=== PATIENT | female | born 1955 | race Caucasian/White ===

== ENCOUNTER 2016-03-18 17:03 | Inpatient (IN) | payer OTHER ==
[~2016-03-18] VITALS: Ht 152.4 cm; Wt 48.5 kg
[~2016-03-18 17:03] MED LIST: ACET325T9 PO; IBUP200C9 PO; ONDA4TAB10 SL; OXYC1TAB7 PO; SENN1TAB21 PO
[2016-03-18] MEDS ORDERED: IV NORMAL SALINE 1000ML BAG 1,000 ML IV ONE ×2 (18:30→19:45)
[2016-03-18] MEDS ORDERED: PROMETH/CODEINE 6.25/10MG 5 ML SYRUP. PO ONE (18:30)
[2016-03-18 18:39] LABS: BASO % 2 % (0-3); EOS % 0 % (0-3); HEMATOCRIT 35.8 % (36.0-47.0); HEMOGLOBIN 12.3 g/dL (12.0-15.5); LYMPH # 0.3 x10^3/uL (1.0-4.8); LYMPH % 34 % (24-48); MEAN CORPUSCULAR HEMOGLOBIN 30 pg (25-35); MEAN CORPUSCULAR HGB CONC 35 g/dL (31-37); MEAN CORPUSCULAR VOLUME 87 fL (79-100); MONO % 10 % (0-9); NEUT % 54 % (31-73); PLATELET COUNT 184 x10^3/uL (140-400); RED BLOOD COUNT 4.13 x10^6/uL (3.50-5.40); RED CELL DISTRIBUTION WIDTH 13.1 % (11.5-14.5)
[2016-03-18 18:46] LABS: WHITE BLOOD COUNT 0.9 x10^3/uL (4.0-11.0)
[2016-03-18 18:56] LABS: CALCIUM 8.5 mg/dL (8.5-10.1); CREATININE 0.6 mg/dL (0.6-1.0); GFR 101.3; POTASSIUM 3.7 mmol/L (3.5-5.1)
[2016-03-18 19:28] LABS: OBC FLU VALID
--- NOTE | 2016-03-18 19:36 | PHYS DOC ---
Past Medical History Past Medical History: Cancer Additional Past Medical Histor: BREAST CA Past Surgical History: Tonsillectomy Additional Past Surgical Histo: LEFT MASTECTOMY Alcohol Use: None Drug Use: None Adult General Chief Complaint Chief Complaint: GENERALIZED BODY ACHES HPI HPI 61-year-old female who is had generalized body aches and weakness with a cough for the last 1-2 day. Pt states she received chemotherapy for known Breast CA. She denies any chest pain or SOB. She states subjective fever and chills. She denies any nausea or vomiting. Review of Systems Review of Systems Constitutional: Has fever, has chills [] Eyes: Denies change in visual acuity, redness, or eye pain [] HENT: Denies nasal congestion or sore throat [] Respiratory: Has cough, denies shortness of breath [] Cardiovascular: No additional information not addressed in HPI [] GI: Denies abdominal pain, nausea, vomiting, bloody stools or diarrhea [] : Denies dysuria or hematuria [] Musculoskeletal: Denies back pain or joint pain [] Integument: Denies rash or skin lesions [] Neurologic: Denies headache, focal weakness or sensory changes [] Endocrine: Denies polyuria or polydipsia [] Current Medications Current Medications Current Medications Medications (Trade) Dose Ordered Sig/Karon Start Time Stop Time Status Last Admin Dose Admin Promethazine HCl/ Codeine 5 ml 5 ml 1X ONCE 03/18/16 18:30 03/18/16 18:31 DC 03/18/16 18:47 5 ML Sodium Chloride (Iv Sodium Chloride 0.9% 1000ml Bag) 1,000 ml @ 1,000 mls/hr 1X ONCE 03/18/16 18:30 03/18/16 19:29 DC 03/18/16 18:47 1,000 MLS/HR Allergies Allergies Allergies Coded Allergies Type Severity Reaction Last Updated Verified No Known Drug Allergies 01/15/16 No Physical Exam Physical Exam Constitutional: Well developed, well nourished, no acute distress, non-toxic appearance. [] HENT: Normocephalic, atraumatic, bilateral external ears normal, oropharynx moist, no oral exudates, nose normal. [] Eyes: PERRLA, EOMI, conjunctiva normal, no discharge. [] Neck: Normal range of motion, no tenderness, supple, no stridor. [] Cardiovascular:Heart rate regular rhythm, no murmur [] Lungs & Thorax: Bilateral breath sounds clear to auscultation [] Abdomen: Bowel sounds normal, soft, no tenderness, no masses, no pulsatile masses. [] Skin: Warm, dry, no erythema, no rash. [] Back: No tenderness, no CVA tenderness. [] Extremities: No tenderness, no cyanosis, no clubbing, ROM intact, no edema. [] Neurologic: Alert and oriented X 3, normal motor function, normal sensory function, no focal deficits noted. [] Psychologic: Affect normal, judgement normal, mood normal. [] Current Patient Data Vital Signs Vital Signs Date Time Temp Pulse Resp B/P Pulse Ox O2 Delivery O2 Flow Rate FiO2 03/18/16 18:51 92 16 129/76 97 Room Air 03/18/16 17:41 98.7 98.7 Lab Values Laboratory Tests Test 03/18/16 18:25 White Blood Count 0.9x10^3/uL (4.0-11.0) *L Red Blood Count 4.13x10^6/uL (3.50-5.40) Hemoglobin 12.3g/dL (12.0-15.5) Hematocrit 35.8% (36.0-47.0) L Mean Corpuscular Volume 87fL (79-100) Mean Corpuscular Hemoglobin 30pg (25-35) Mean Corpuscular Hemoglobin Concent 35g/dL (31-37) Red Cell Distribution Width 13.1% (11.5-14.5) Platelet Count 184x10^3/uL (140-400) Neutrophils (%) (Auto) 54% (31-73) Lymphocytes (%) (Auto) 34% (24-48) Monocytes (%) (Auto) 10% (0-9) H Eosinophils (%) (Auto) 0% (0-3) Basophils (%) (Auto) 2% (0-3) Neutrophils # (Auto) 0.5x10^3uL (1.8-7.7) L Lymphocytes # (Auto) 0.3x10^3/uL (1.0-4.8) L Monocytes # (Auto) 0.1x10^3/uL (0.0-1.1) Eosinophils # (Auto) 0.0x10^3/uL (0.0-0.7) Basophils # (Auto) 0.0x10^3/uL (0.0-0.2) Segmented Neutrophils % 50% (35-66) Lymphocytes % 36% (24-48) Monocytes % 14% (0-10) H Platelet Estimate Adequate (ADEQUATE) Large Platelets Occ Giant Platelets Occ Polychromasia Slight Ovalocytes Occ Sodium Level 139mmol/L (136-145) Potassium Level 3.7mmol/L (3.5-5.1) Chloride Level 102mmol/L (98-107) Carbon Dioxide Level 30mmol/L (21-32) Anion Gap 7 (6-14) Blood Urea Nitrogen 16mg/dL (7-20) Creatinine 0.6mg/dL (0.6-1.0) Estimated GFR (Cockcroft-Gault) 101.3 Glucose Level 99mg/dL (70-99) Calcium Level 8.5mg/dL (8.5-10.1) Troponin I Quantitative < 0.017ng/mL (0.000-0.055) Influenza Type A Antigen Positive (NEGATIVE) Influenza Type B Antigen Negative (NEGATIVE) Laboratory Tests 03/18/16 18:25 Laboratory Tests 03/18/16 18:25 EKG EKG EKG as interpreted by me shows a sinus rhythm with a rate of 87 bpm with a leftward axis. There are no acute ST findings. Intervals are normal. Radiology/Procedures Radiology/Procedures Portable one view of the chest as interpreted by me shows no acute cardiopulmonary abnormality. Chemo-Port appears appropriate. Course & Med Decision Making Course & Med Decision Making Pertinent Labs and Imaging studies reviewed. (See chart for details) 61-year-old female who is influenza positive will be admitted to the hospital as she is on chemotherapy and immunocompromised. She has a white count of 0.9 patient was given fluids and the first dose of Tamiflu in the department. Her case was discussed with the hospitalist, Dr. Strange, who agreed to admit the patient with consult to oncology as well as infectious disease. Her EKG and chest xray did not demonstrate any other acute abnormality. She was admitted without incident. Dragon Disclaimer Dragon Disclaimer This electronic medical record was generated, in whole or in part, using a voice recognition dictation system. Departure Departure Impression: Primary Impression: Influenza A Additional Impression: Weakness Disposition: 09 ADMITTED INPATIENT Admitting Physician: Elli Strange Condition: STABLE Referrals: ELLI STRANGE MD (PCP) Problem Qualifiers SHIRIN HOWE DO Mar 18, 2016 19:36
[2016-03-18] MEDS ORDERED: ONDANSETRON PF 4 MG/2 ML VIAL. IV PRN (19:45)
[2016-03-18] MEDS ORDERED: IPRATRPIUM/ALBUTEROL 0.5/2.5MG 3 ML NEBU. NEB SCH (20:00)
[2016-03-18 20:15] LABS: OVALOCYTES OCC; PLT ESTIMATE ADEQUATE (ADEQUATE); POLYCHROMASIA SLIGHT
[2016-03-18] MEDS: OSELTAMIVIR 75 MG CAPSULE PO SCH (21:27)
[2016-03-18 22:00] VITALS: BP 128/79
[2016-03-18 23:00] VITALS: BP 128/79
[2016-03-19 02:54] VITALS: BP 112/65
[2016-03-19] MEDS: ACETAMINOPHEN 325 MG TABLET. PO PRN ×2 (03:04→10:27)
--- NOTE | 2016-03-19 06:39 | EKG ---
[facility] [address] [place] [address] Test Date: 2016-03-18 Test Time: 18:36:52 Pat Name: ESTEBAN GIPSON Department: Room: [facility] Gender: F Motion Picture Commentator: : 1955 Requested By: SHIRIN HOWE Order Number: [id number] Reading MD: Lala Hernández Measurements Intervals [place] Rate: 87 P: 38 OR: 136 QRS: -45 QRSD: 94 T: 42 QT: 386 QTc: 465 Interpretive Statements SINUS RHYTHM LEFT ANTERIOR FASCICULAR BLOCK CONSIDER LEFT VENTRICULAR HYPERTROPHY ABNORMAL ECG Electronically Signed On 03-20-2016 0:41:03 MEMBER SERVICES COORDINATOR by Lala Hernández
--- NOTE | 2016-03-19 06:54 | PDOC ---
GEOFF HUIZAR APRN 03/19/16 0654: Provider Note Provider Note Onset coughing non productive dry, weakness, diarrhea, and body aches 2 day prior to ED evaluation. Presented to ED by private car. Neutropenia present with ANC <1000. She has a history of breast cancer and is currently receiving chemotherapy. EKG SR. CXR clear. Influenzae A +. She is admitted for Influenzae A. Initial IMPRESSION: 1. Influenzae A 2. Neutropenia with ANC <1000 3. L breast cancer with h/o chemotherapy PLAN: Influenzae A Tamiflu initiated supportive care codeine based cough syrup nebulizer QID Tm 102.6 during night, 03/19 100.0 IV NS 75cc/hr airborne/contact precautions Neutropenia Admit WBC 0.9 neutropenic precautions Breast cancer/L mastectomy/chemo consult Dr. Mcfarland DVT/GI prophylaxis SCD/JOSÉ MIGUEL BOOTH to chair PPI For further plan of care, please refer to the orders. See completed HP ELLI STRANGE MD 03/19/16 1048: Provider Note Provider Note D/w patient,family, and . IV Cefepime,Tamiflu. The patient was seen and examined by me. Chart reviewed and plan of care formulated. Discussed with, reviewed and agree with IT ADMIN's notes, plan of care and orders with modifications as necessary. For more details regarding further plans, please refer to the orders. GEOFF HUIZAR APRN Mar 19, 2016 06:54 ELLI STRANGE MD Mar 19, 2016 10:48
[2016-03-19 07:00] VITALS: BP 112/62
[2016-03-19] MEDS ORDERED: ONDANSETRON PF 4 MG/2 ML VIAL. IV PRN (07:00)
[2016-03-19] MEDS ORDERED: PROMETH/CODEINE 6.25/10MG 5 ML SYRUP. PO PRN (07:00)
[2016-03-19 07:14] LABS: BASO % 3 % (0-3); EOS % 0 % (0-3); HEMATOCRIT 33.9 % (36.0-47.0); HEMOGLOBIN 11.6 g/dL (12.0-15.5); LYMPH # 0.4 x10^3/uL (1.0-4.8); LYMPH % 51 % (24-48); MEAN CORPUSCULAR HEMOGLOBIN 31 pg (25-35); MEAN CORPUSCULAR HGB CONC 34 g/dL (31-37); MEAN CORPUSCULAR VOLUME 90 fL (79-100); MONO % 17 % (0-9); NEUT % 29 % (31-73); PLATELET COUNT 155 x10^3/uL (140-400); RED BLOOD COUNT 3.78 x10^6/uL (3.50-5.40); RED CELL DISTRIBUTION WIDTH 13.4 % (11.5-14.5)
[2016-03-19 07:20] LABS: WHITE BLOOD COUNT 0.8 x10^3/uL (4.0-11.0)
[2016-03-19 07:24] LABS: CALCIUM 7.8 mg/dL (8.5-10.1); CREATININE 0.5 mg/dL (0.6-1.0); POTASSIUM 3.8 mmol/L (3.5-5.1)
[2016-03-19] MEDS: IPRATRPIUM/ALBUTEROL 0.5/2.5MG 3 ML NEBU. NEB SCH ×5 (07:26→19:13)
--- NOTE | 2016-03-19 08:05 | RAD ---
Portable AP upright view CXR: Clinical indications: Cough with cold symptoms. Chemotherapy for 2 months. Comparison: January 15, 2016. Findings: No acute lung infiltrate or pleural effusion or pulmonary edema or lung mass or pneumothorax is seen. The heart size, pulmonary vasculature, mediastinum and both michael are unremarkable. The right IJ Port-A-Cath is unchanged in position. Left mastectomy and axillary node dissection is evident. Impression: No acute radiographic abnormality is seen.
--- NOTE | 2016-03-19 09:07 | PDOC ---
Infectious Disease Note ROS ROS GEN: Denies fevers, chills, sweats HEENT: Denies blurred vision, sore throat CV: Denies chest pain RESP: Denies shortness of air, cough GI: Denies n/v/d NEURO: Denies confusion, dizziness MSK: Denies weakness, joint pain/swelling Vital Sign Vital Signs Vital Signs Date Time Temp Pulse Resp B/P Pulse Ox O2 Delivery O2 Flow Rate FiO2 03/19/16 07:00 98.4 81 16 112/62 95 Room Air 98.4 Physical Exam PHYSICAL EXAM GENERAL: NAD, Alert HEENT: PERRL, OC/OP NECK: Supple, no JVD, no LN LUNGS: Clear HEART: S1S2, no gallop, no murmur ABD: Soft, NT, no organomegaly, no rebound EXT: No edema, no cyanosis DYNAMO REPAIRER: Alert, oriented x 3, no focal neurologic deficit SKIN: No rash IV: ok Labs Lab Laboratory Tests Test 03/18/16 18:25 03/19/16 06:45 White Blood Count 0.9x10^3/uL (4.0-11.0) 0.8x10^3/uL (4.0-11.0) Red Blood Count 4.13x10^6/uL (3.50-5.40) 3.78x10^6/uL (3.50-5.40) Hemoglobin 12.3g/dL (12.0-15.5) 11.6g/dL (12.0-15.5) Hematocrit 35.8% (36.0-47.0) 33.9% (36.0-47.0) Mean Corpuscular Volume 87fL (79-100) 90fL (79-100) Mean Corpuscular Hemoglobin 30pg (25-35) 31pg (25-35) Mean Corpuscular Hemoglobin Concent 35g/dL (31-37) 34g/dL (31-37) Red Cell Distribution Width 13.1% (11.5-14.5) 13.4% (11.5-14.5) Platelet Count 184x10^3/uL (140-400) 155x10^3/uL (140-400) Neutrophils (%) (Auto) 54% (31-73) 29% (31-73) Lymphocytes (%) (Auto) 34% (24-48) 51% (24-48) Monocytes (%) (Auto) 10% (0-9) 17% (0-9) Eosinophils (%) (Auto) 0% (0-3) 0% (0-3) Basophils (%) (Auto) 2% (0-3) 3% (0-3) Neutrophils # (Auto) 0.5x10^3uL (1.8-7.7) 0.2x10^3uL (1.8-7.7) Lymphocytes # (Auto) 0.3x10^3/uL (1.0-4.8) 0.4x10^3/uL (1.0-4.8) Monocytes # (Auto) 0.1x10^3/uL (0.0-1.1) 0.1x10^3/uL (0.0-1.1) Eosinophils # (Auto) 0.0x10^3/uL (0.0-0.7) 0.0x10^3/uL (0.0-0.7) Basophils # (Auto) 0.0x10^3/uL (0.0-0.2) 0.0x10^3/uL (0.0-0.2) Segmented Neutrophils % 50% (35-66) Lymphocytes % 36% (24-48) Monocytes % 14% (0-10) Platelet Estimate Adequate (ADEQUATE) Large Platelets Occ Giant Platelets Occ Polychromasia Slight Ovalocytes Occ Sodium Level 139mmol/L (136-145) 141mmol/L (136-145) Potassium Level 3.7mmol/L (3.5-5.1) 3.8mmol/L (3.5-5.1) Chloride Level 102mmol/L (98-107) 107mmol/L (98-107) Carbon Dioxide Level 30mmol/L (21-32) 24mmol/L (21-32) Anion Gap 7 (6-14) 10 (6-14) Blood Urea Nitrogen 16mg/dL (7-20) 9mg/dL (7-20) Creatinine 0.6mg/dL (0.6-1.0) 0.5mg/dL (0.6-1.0) Estimated GFR (Cockcroft-Gault) 101.3 125.0 Glucose Level 99mg/dL (70-99) 87mg/dL (70-99) Calcium Level 8.5mg/dL (8.5-10.1) 7.8mg/dL (8.5-10.1) Troponin I Quantitative < 0.017ng/mL (0.000-0.055) Influenza Type A Antigen Positive (NEGATIVE) Influenza Type B Antigen Negative (NEGATIVE) Objective Assessment Influenza A 03/18. Did get vaccinated this year Fever Immunosuppression Breast CA s/p Chemo 03/12 and neulasta 03/13 Port a cath right chest - appears clean Plan Plan of Care Cont Tamiflu Add Cefepime - d/w pharmacy F/u labs and cults Thank you # [phone] LUIS ALFREDO ORTEGA MD Mar 19, 2016 09:07
[2016-03-19] MEDS: OSELTAMIVIR 75 MG CAPSULE PO SCH ×2 (10:14→20:37)
[2016-03-19] MEDS: PANTOPRAZOLE 40 MG TABLET. PO SCH (10:14)
[2016-03-19] MEDS: CEFEPIME HCL 1 GM in IV NORMAL SALINE 50ML 50 ML IV SCH ×3 (10:15→22:07)
[2016-03-19] MEDS: IV NORMAL SALINE 1000ML BAG 1,000 ML IV SCH ×2 (10:16→20:38)
[2016-03-19 10:54] VITALS: BP 113/66
--- NOTE | 2016-03-19 13:24 | PDOC1 ---
HISTORY AND PHYSICAL Chief Complaint Chief Complaint This 89 year old female has been admitted with a chief complaint of coughing non productive dry, weakness, diarrhea, and body aches 2 day prior to ED evaluation. Presented to ED by private car. Neutropenia present with ANC < 1000. She has a history of breast cancer and is currently receiving chemotherapy. EKG SR. CXR clear. Influenzae A +. She is admitted for Influenzae A. Initial IMPRESSION: 1. Influenzae A 2. Neutropenia with ANC <1000 3. L breast cancer with h/o chemotherapy Problem List Problems Medical Problems: (1) Influenza A Status: Acute (2) Weakness Status: Acute Past Medical History Cardiovascular: Hyperlipidemia Heme/Onc: Cancer (invasive hi grade ductal L breast Ca stage III post mastectomy/current chemotherapy) Musculoskeletal: Other (carpal tunnel syndrome ) Past Surgical History Past Surgical History: Mastectomy (left mastectomy ) Past Family History Family History: Cancer (breast Mom ), Coronary Artery Disease (Dad), Diabetes ( Mom), Other (arthritis Mom ) Past Social History PSH , former smoker, no h/o ETOH or illicit drug use Review of Symptoms Review of Symptoms A 14 point ROS was completed with the following noted as positive: per HPI Other systems reviewed and negative. Medications Medications reviewed and reconciled Allergy Allergies Coded Allergies Type Severity Reaction Last Updated Verified No Known Drug Allergies 01/15/16 No Physical Exam Physical Exam General appearance - alert,ill appearing, and in no distress Mental Status - alert, oriented to person, place, and time, affect appropriate to mood Head - normal Hair loss secondary to chemotherapy Chest - clear to auscultation, no wheezes, rales or rhonchi Heart - S1 and S2 normal Abdomen - soft, nontender, nondistended, BS+ Neurological -no acute focal neurological deficit noted. Musculoskeletal - no muscular tenderness noted Extremities - no pedal edema Skin - warm and dry VTE Prophylaxis Ordered VTE Prophylaxis Devices: Yes VTE Pharmacological Prophylaxi: No Assessment Labs Laboratory Tests Test 03/18/16 18:25 03/19/16 06:45 White Blood Count 0.9x10^3/uL (4.0-11.0) 0.8x10^3/uL (4.0-11.0) Red Blood Count 4.13x10^6/uL (3.50-5.40) 3.78x10^6/uL (3.50-5.40) Hemoglobin 12.3g/dL (12.0-15.5) 11.6g/dL (12.0-15.5) Hematocrit 35.8% (36.0-47.0) 33.9% (36.0-47.0) Mean Corpuscular Volume 87fL (79-100) 90fL (79-100) Mean Corpuscular Hemoglobin 30pg (25-35) 31pg (25-35) Mean Corpuscular Hemoglobin Concent 35g/dL (31-37) 34g/dL (31-37) Red Cell Distribution Width 13.1% (11.5-14.5) 13.4% (11.5-14.5) Platelet Count 184x10^3/uL (140-400) 155x10^3/uL (140-400) Neutrophils (%) (Auto) 54% (31-73) 29% (31-73) Lymphocytes (%) (Auto) 34% (24-48) 51% (24-48) Monocytes (%) (Auto) 10% (0-9) 17% (0-9) Eosinophils (%) (Auto) 0% (0-3) 0% (0-3) Basophils (%) (Auto) 2% (0-3) 3% (0-3) Neutrophils # (Auto) 0.5x10^3uL (1.8-7.7) 0.2x10^3uL (1.8-7.7) Lymphocytes # (Auto) 0.3x10^3/uL (1.0-4.8) 0.4x10^3/uL (1.0-4.8) Monocytes # (Auto) 0.1x10^3/uL (0.0-1.1) 0.1x10^3/uL (0.0-1.1) Eosinophils # (Auto) 0.0x10^3/uL (0.0-0.7) 0.0x10^3/uL (0.0-0.7) Basophils # (Auto) 0.0x10^3/uL (0.0-0.2) 0.0x10^3/uL (0.0-0.2) Segmented Neutrophils % 50% (35-66) Lymphocytes % 36% (24-48) Monocytes % 14% (0-10) Platelet Estimate Adequate (ADEQUATE) Large Platelets Occ Giant Platelets Occ Polychromasia Slight Ovalocytes Occ Sodium Level 139mmol/L (136-145) 141mmol/L (136-145) Potassium Level 3.7mmol/L (3.5-5.1) 3.8mmol/L (3.5-5.1) Chloride Level 102mmol/L (98-107) 107mmol/L (98-107) Carbon Dioxide Level 30mmol/L (21-32) 24mmol/L (21-32) Anion Gap 7 (6-14) 10 (6-14) Blood Urea Nitrogen 16mg/dL (7-20) 9mg/dL (7-20) Creatinine 0.6mg/dL (0.6-1.0) 0.5mg/dL (0.6-1.0) Estimated GFR (Cockcroft-Gault) 101.3 125.0 Glucose Level 99mg/dL (70-99) 87mg/dL (70-99) Calcium Level 8.5mg/dL (8.5-10.1) 7.8mg/dL (8.5-10.1) Troponin I Quantitative < 0.017ng/mL (0.000-0.055) Influenza Type A Antigen Positive (NEGATIVE) Influenza Type B Antigen Negative (NEGATIVE) Laboratory Tests Test 03/18/16 18:25 03/19/16 06:45 White Blood Count 0.9x10^3/uL (4.0-11.0) 0.8x10^3/uL (4.0-11.0) Red Blood Count 4.13x10^6/uL (3.50-5.40) 3.78x10^6/uL (3.50-5.40) Hemoglobin 12.3g/dL (12.0-15.5) 11.6g/dL (12.0-15.5) Hematocrit 35.8% (36.0-47.0) 33.9% (36.0-47.0) Mean Corpuscular Volume 87fL (79-100) 90fL (79-100) Mean Corpuscular Hemoglobin 30pg (25-35) 31pg (25-35) Mean Corpuscular Hemoglobin Concent 35g/dL (31-37) 34g/dL (31-37) Red Cell Distribution Width 13.1% (11.5-14.5) 13.4% (11.5-14.5) Platelet Count 184x10^3/uL (140-400) 155x10^3/uL (140-400) Neutrophils (%) (Auto) 54% (31-73) 29% (31-73) Lymphocytes (%) (Auto) 34% (24-48) 51% (24-48) Monocytes (%) (Auto) 10% (0-9) 17% (0-9) Eosinophils (%) (Auto) 0% (0-3) 0% (0-3) Basophils (%) (Auto) 2% (0-3) 3% (0-3) Neutrophils # (Auto) 0.5x10^3uL (1.8-7.7) 0.2x10^3uL (1.8-7.7) Lymphocytes # (Auto) 0.3x10^3/uL (1.0-4.8) 0.4x10^3/uL (1.0-4.8) Monocytes # (Auto) 0.1x10^3/uL (0.0-1.1) 0.1x10^3/uL (0.0-1.1) Eosinophils # (Auto) 0.0x10^3/uL (0.0-0.7) 0.0x10^3/uL (0.0-0.7) Basophils # (Auto) 0.0x10^3/uL (0.0-0.2) 0.0x10^3/uL (0.0-0.2) Segmented Neutrophils % 50% (35-66) Lymphocytes % 36% (24-48) Monocytes % 14% (0-10) Platelet Estimate Adequate (ADEQUATE) Large Platelets Occ Giant Platelets Occ Polychromasia Slight Ovalocytes Occ Sodium Level 139mmol/L (136-145) 141mmol/L (136-145) Potassium Level 3.7mmol/L (3.5-5.1) 3.8mmol/L (3.5-5.1) Chloride Level 102mmol/L (98-107) 107mmol/L (98-107) Carbon Dioxide Level 30mmol/L (21-32) 24mmol/L (21-32) Anion Gap 7 (6-14) 10 (6-14) Blood Urea Nitrogen 16mg/dL (7-20) 9mg/dL (7-20) Creatinine 0.6mg/dL (0.6-1.0) 0.5mg/dL (0.6-1.0) Estimated GFR (Cockcroft-Gault) 101.3 125.0 Glucose Level 99mg/dL (70-99) 87mg/dL (70-99) Calcium Level 8.5mg/dL (8.5-10.1) 7.8mg/dL (8.5-10.1) Troponin I Quantitative < 0.017ng/mL (0.000-0.055) Influenza Type A Antigen Positive (NEGATIVE) Influenza Type B Antigen Negative (NEGATIVE) Plan Plan PLAN: Influenzae A Tamiflu initiated supportive care codeine based cough syrup nebulizer QID Tm 102.6 during night, 03/19 100.0 IV NS 75cc/hr airborne/contact precautions ID consulted-Cefepime IV added Neutropenia Admit WBC 0.9 neutropenic precautions chemotherapy induced Breast cancer/L mastectomy/chemo consult Dr. Mcfarland DVT/GI prophylaxis SCD/JOSÉ MIGUEL OOB to chair PPI For more details regarding further plans, please refer to the orders. GEOFF HUIZAR APRN Mar 19, 2016 13:24
[2016-03-19 15:07] VITALS: BP 100/63
--- NOTE | 2016-03-19 15:13 | PDOC2 ---
CONSULT Date of Consult Date of Consult DATE: 03/19/16 TIME: 15:05 Past Medical History Cardiovascular: Hyperlipidemia Heme/Onc: Cancer (invasive hi grade ductal L breast Ca stage III post mastectomy/current chemotherapy) Musculoskeletal: Other (carpal tunnel syndrome ) Past Surgical History Past Surgical History: Mastectomy (left mastectomy ) Family History Family History: Cancer (breast Mom ), Coronary Artery Disease (Dad), Diabetes ( Mom), Other (arthritis Mom ) Current Problem List Problem List Problems Medical Problems: (1) Influenza A Status: Acute (2) Weakness Status: Acute Current Medications Current Medications Current Medications Promethazine HCl/ Codeine 5 ml 5 ml 1X ONCE PO Last administered on 03/18/16 18:47; Start 03/18/16 at 18:30; Stop 03/18/16 at 18:31; Status DC Sodium Chloride (Iv Sodium Chloride 0.9% 1000ml Bag) 1,000 ml @ 1,000 mls/hr 1X ONCE IV Last administered on 03/18/16 18:47; Start 03/18/16 at 18:30; Stop 03/19/16 at 06:57; Status DC Ondansetron HCl (Zofran) 4 mg PRN Q8HRS PRN IV NAUSEA/VOMITING Last administered on 03/19/16 00:57; Start 03/18/16 at 19:45; Stop 03/19/16 at 06:57 ; Status DC Albuterol/ Ipratropium (Duoneb) 3 ml RTQID NEB Last administered on 03/18/16 21:07; Start 03/18/16 at 20:00; Stop 03/19/16 at 06:57; Status DC Oseltamivir Phosphate 75 mg 75 mg BID PO Last administered on 03/19/16 10:14; Start 03/18/16 at 21:00; Stop 03/23/16 at 20:59 Sodium Chloride (Iv Sodium Chloride 0.9% 1000ml Bag) 1,000 ml @ 100 mls/hr 1X ONCE IV Last administered on 03/18/16 21:29; Start 03/18/16 at 19:45; Stop at 06:57; Status DC Acetaminophen 650 mg 650 mg PRN Q6HRS PRN PO MILD PAIN / TEMP Last administered on 03/19/16 10:27; Start 03/19/16 at 03:00 Sodium Chloride (Iv Sodium Chloride 0.9% 1000ml Bag) 1,000 ml @ 75 mls/hr [id number] IV Last administered on 03/19/16 10:16; Start 03/19/16 at 06:45 Albuterol/ Ipratropium (Duoneb) 3 ml RTQID NEB Last administered on 03/19/16 12:06; Start 03/19/16 at 07:00 Ondansetron HCl (Zofran) 4 mg PRN Q8HRS PRN IV NAUSEA/VOMITING; Start 03/19/16 at 07:00 Promethazine HCl/ Codeine (Phenergan With Codeine) 5 ml PRN Q6HRS PRN PO COUGH ; Start 03/19/16 at 07:00 Pantoprazole Sodium 40 mg 40 mg DAILYAC PO Last administered on 03/19/16 10:14 ; Start 03/19/16 at 07:30 Cefepime HCl/ Sodium Chloride (Maxipime/Iv Sodium Chloride 0.9% 50ml) 50 ml @ 100 mls/hr Q8HRS IV Last administered on 03/19/16 14:24; Start 03/19/16 at 09: 00 Active Scripts Active Senna Plus Tablet (Sennosides/Docusate Sodium) 1 Each Tablet 1 Each PO BID Zofran Odt (Ondansetron) 4 Mg Tab.rapdis 1 Tab SL Q8HRS Oxycodone-Acetaminophen 5-325 (Oxycodone Hcl/Acetaminophen) 1 Each Tablet 2 Tab PO PRN Q4HRS PRN Reported Tylenol (Acetaminophen) 325 Mg Tablet 1-2 Tab PO QID Allergies Allergies: Coded Allergies: No Known Drug Allergies (Unverified , 01/15/16) Vitals VITALS Vital Signs Date Time Temp Pulse Resp B/P Pulse Ox O2 Delivery O2 Flow Rate FiO2 03/19/16 12:07 96 Room Air 03/19/16 10:54 98.0 85 14 113/66 98.0 Labs Labs Laboratory Tests Test 03/18/16 18:25 03/19/16 06:45 White Blood Count 0.9x10^3/uL (4.0-11.0) 0.8x10^3/uL (4.0-11.0) Red Blood Count 4.13x10^6/uL (3.50-5.40) 3.78x10^6/uL (3.50-5.40) Hemoglobin 12.3g/dL (12.0-15.5) 11.6g/dL (12.0-15.5) Hematocrit 35.8% (36.0-47.0) 33.9% (36.0-47.0) Mean Corpuscular Volume 87fL (79-100) 90fL (79-100) Mean Corpuscular Hemoglobin 30pg (25-35) 31pg (25-35) Mean Corpuscular Hemoglobin Concent 35g/dL (31-37) 34g/dL (31-37) Red Cell Distribution Width 13.1% (11.5-14.5) 13.4% (11.5-14.5) Platelet Count 184x10^3/uL (140-400) 155x10^3/uL (140-400) Neutrophils (%) (Auto) 54% (31-73) 29% (31-73) Lymphocytes (%) (Auto) 34% (24-48) 51% (24-48) Monocytes (%) (Auto) 10% (0-9) 17% (0-9) Eosinophils (%) (Auto) 0% (0-3) 0% (0-3) Basophils (%) (Auto) 2% (0-3) 3% (0-3) Neutrophils # (Auto) 0.5x10^3uL (1.8-7.7) 0.2x10^3uL (1.8-7.7) Lymphocytes # (Auto) 0.3x10^3/uL (1.0-4.8) 0.4x10^3/uL (1.0-4.8) Monocytes # (Auto) 0.1x10^3/uL (0.0-1.1) 0.1x10^3/uL (0.0-1.1) Eosinophils # (Auto) 0.0x10^3/uL (0.0-0.7) 0.0x10^3/uL (0.0-0.7) Basophils # (Auto) 0.0x10^3/uL (0.0-0.2) 0.0x10^3/uL (0.0-0.2) Segmented Neutrophils % 50% (35-66) Lymphocytes % 36% (24-48) Monocytes % 14% (0-10) Platelet Estimate Adequate (ADEQUATE) Large Platelets Occ Giant Platelets Occ Polychromasia Slight Ovalocytes Occ Sodium Level 139mmol/L (136-145) 141mmol/L (136-145) Potassium Level 3.7mmol/L (3.5-5.1) 3.8mmol/L (3.5-5.1) Chloride Level 102mmol/L (98-107) 107mmol/L (98-107) Carbon Dioxide Level 30mmol/L (21-32) 24mmol/L (21-32) Anion Gap 7 (6-14) 10 (6-14) Blood Urea Nitrogen 16mg/dL (7-20) 9mg/dL (7-20) Creatinine 0.6mg/dL (0.6-1.0) 0.5mg/dL (0.6-1.0) Estimated GFR (Cockcroft-Gault) 101.3 125.0 Glucose Level 99mg/dL (70-99) 87mg/dL (70-99) Calcium Level 8.5mg/dL (8.5-10.1) 7.8mg/dL (8.5-10.1) Troponin I Quantitative < 0.017ng/mL (0.000-0.055) Influenza Type A Antigen Positive (NEGATIVE) Influenza Type B Antigen Negative (NEGATIVE) Laboratory Tests Test 03/18/16 18:25 03/19/16 06:45 White Blood Count 0.9x10^3/uL (4.0-11.0) 0.8x10^3/uL (4.0-11.0) Red Blood Count 4.13x10^6/uL (3.50-5.40) 3.78x10^6/uL (3.50-5.40) Hemoglobin 12.3g/dL (12.0-15.5) 11.6g/dL (12.0-15.5) Hematocrit 35.8% (36.0-47.0) 33.9% (36.0-47.0) Mean Corpuscular Volume 87fL (79-100) 90fL (79-100) Mean Corpuscular Hemoglobin 30pg (25-35) 31pg (25-35) Mean Corpuscular Hemoglobin Concent 35g/dL (31-37) 34g/dL (31-37) Red Cell Distribution Width 13.1% (11.5-14.5) 13.4% (11.5-14.5) Platelet Count 184x10^3/uL (140-400) 155x10^3/uL (140-400) Neutrophils (%) (Auto) 54% (31-73) 29% (31-73) Lymphocytes (%) (Auto) 34% (24-48) 51% (24-48) Monocytes (%) (Auto) 10% (0-9) 17% (0-9) Eosinophils (%) (Auto) 0% (0-3) 0% (0-3) Basophils (%) (Auto) 2% (0-3) 3% (0-3) Neutrophils # (Auto) 0.5x10^3uL (1.8-7.7) 0.2x10^3uL (1.8-7.7) Lymphocytes # (Auto) 0.3x10^3/uL (1.0-4.8) 0.4x10^3/uL (1.0-4.8) Monocytes # (Auto) 0.1x10^3/uL (0.0-1.1) 0.1x10^3/uL (0.0-1.1) Eosinophils # (Auto) 0.0x10^3/uL (0.0-0.7) 0.0x10^3/uL (0.0-0.7) Basophils # (Auto) 0.0x10^3/uL (0.0-0.2) 0.0x10^3/uL (0.0-0.2) Segmented Neutrophils % 50% (35-66) Lymphocytes % 36% (24-48) Monocytes % 14% (0-10) Platelet Estimate Adequate (ADEQUATE) Large Platelets Occ Giant Platelets Occ Polychromasia Slight Ovalocytes Occ Sodium Level 139mmol/L (136-145) 141mmol/L (136-145) Potassium Level 3.7mmol/L (3.5-5.1) 3.8mmol/L (3.5-5.1) Chloride Level 102mmol/L (98-107) 107mmol/L (98-107) Carbon Dioxide Level 30mmol/L (21-32) 24mmol/L (21-32) Anion Gap 7 (6-14) 10 (6-14) Blood Urea Nitrogen 16mg/dL (7-20) 9mg/dL (7-20) Creatinine 0.6mg/dL (0.6-1.0) 0.5mg/dL (0.6-1.0) Estimated GFR (Cockcroft-Gault) 101.3 125.0 Glucose Level 99mg/dL (70-99) 87mg/dL (70-99) Calcium Level 8.5mg/dL (8.5-10.1) 7.8mg/dL (8.5-10.1) Troponin I Quantitative < 0.017ng/mL (0.000-0.055) Influenza Type A Antigen Positive (NEGATIVE) Influenza Type B Antigen Negative (NEGATIVE) Assessment/Plan Assessment/Plan MED/ONC consult 03/19/[address] Javon Haley Reason: Left breast invasive ductal carcinoma diagnosed 12/12/15 s/p mastectomy and SLND 12/20/15, triple negative, T2N0M0, Grade 3. Admitted for neutropenic fever History of Present Illness Ms. Rhiannon Gleason is a 61-year-old female, who noticed a lump in her left breast in October 2015. She underwent a mammogram on 11/20/2015, which revealed a 2.2 cm mass at the 7 o'clock position of the left breast. She underwent a biopsy on 12/12/2015, which revealed invasive high-grade ductal carcinoma ER negative, AL negative, HER-2/kacie negative, Ki-67 of 70.8 percent. This was followed by left mastectomy and sentinel lymph node biopsy on 2015, by Dr. Liz George. This revealed invasive high-grade ductal carcinoma, grade 3 measuring 2.4 cm with focal lymphovascular tumor invasion. The 3 lymph nodes were examined and they were all negative. Margins are uninvolved staged as a stage IIA invasive ductal carcinoma. I initiated adjuvant chemotherapy with AC on 02/27/16. Tolerated first cycle quite well except for mild n/v and bone pains Received cycle 2 on 03/12/16 and neulasta on 03/13/16. She was admitted to [facility] on 03/18/16 with a chief complaint of coughing non productive dry, weakness, diarrhea, and body aches 2 day prior to ED evaluation. Neutropenia present with ANC 500. EKG SR. CXR clear. Influenzae A + . She is admitted for Influenzae A. Past medical history: She has history of muscle spasms. Past surgical history: Tonsillectomy. Social history: She smokes half-a-pack of cigarettes per day. Family history: Mother had breast cancer when the patient was 7 years old. ROS - 14 point ROS done, pertinenet positives per HPI and rest are negative. Physical Exam Constitutional: She is oriented to person, place, and time. She appears well- developed and well-nourished. HENT: ~ Head: Normocephalic and atraumatic. Eyes: EOM are normal. Pupils are equal, round, and reactive to light. Neck: Neck supple. Cardiovascular: Normal rate and normal heart sounds.~ Pulmonary/Chest: Effort normal and breath sounds normal. Abdominal: Soft. There is no tenderness. Musculoskeletal: She exhibits no tenderness. Neurological: She is alert and oriented to person, place, and time. Skin: Skin is warm and dry. Psychiatric: She has a normal mood and affect. Lymphatics- no lymphadenopathy Assessment and Plan: 1. Invasive ductal carcinoma of the left breast lower inner quadrant diagnosed on 12/12/2015 status post left mastectomy and sentinel lymph node biopsy on .~ This is a grade 3 triple negative tumor measuring 2.4 cm and hence it is staged as a T2N0M0 stage IIA breast cancer.~ I discussed in detail with the patient regarding the diagnosis and prognosis of breast cancer.~ I recommended adjuvant chemotherapy considering the grade 3 tumor and triple negative malignancy.~ I recommended adjuvant chemotherapy with Adriamycin and Cytoxan followed by Taxol.~ I reviewed the risks and benefits of chemotherapy.~ She understands and agreed to proceed with the plan. echocardiogram for prechemotherapy evaluation: EF 65% pn 02/04/16 I initiated adjuvant chemotherapy with AC on 02/27/16. Tolerated first cycle quite well except for mild n/v and bone pains Received cycle 2 on 03/12/16 and neulasta on 03/13/16. She was admitted to [facility] on 03/18/16 with a chief complaint of coughing non productive dry, weakness, diarrhea, and body aches 2 day prior to ED evaluation. Neutropenia present with ANC 500. EKG SR. CXR clear. Influenzae A + . She is admitted for Influenzae A. I will defer cycle 3 by 1 week. 2. Neutropenia - worse this cycle, s/p neulasta on 03/13/16. I will give a dose of granix in view of severe neutropenia and Influenza A. I d/w Dr Haley and Dr Oliveira. 3.Influenza A. PAMELA ZARCO MD Mar 19, 2016 15:13
[2016-03-19 19:00] VITALS: BP 110/56
[2016-03-19] MEDS ORDERED: TBO-FILGRASTIM 300 MCG/0.5 ML SYRINGE. SQ SCH (21:00)
--- NOTE | 2016-03-19 22:05 | CONS ---
DATE OF CONSULTATION: 03/19/2016 ROOM: 670. REQUESTING PHYSICIAN: Dr. Alvarado from the ER REASON FOR CONSULTATION: Influenza. HISTORY OF PRESENT ILLNESS: The patient is pleasant 61-year-old female who is a continuous smoker, underwent left mastectomy and sentinel lymph node dissection on 12/20/2015. She was since diagnosed with breast cancer. She had a Port-A-Cath placement, received her first round of chemotherapy on 02/27/2016 and then her second round of chemotherapy on 03/12/2016. On 03/13/2016, she states she received Neulasta shot. This past Wednesday03/15/2016, she began to feel somewhat tired and a little congested. By Wednesday, the congestion continued, she did not go to work and she bought some Dib[employer] Plus, that evening, she began to have body aches. On Wednesday03/18/2016, she started to develop fever. Her sister requested that she call Dr. Harrison' office and find out what she should do. Apparently, she was referred to the Emergency Room. On arrival, her initial temperature was 98.7, but she did peak at 102.6 overnight. Her white blood cell count was 0.9 with 50 segs, 36 lymphs initially. Flu screen was obtained and it was positive for influenza A. She did state that she had an influenza vaccine earlier last year prior to starting her chemotherapy. She has now been placed on Tamiflu and has been admitted to the hospital. Currently, she is sitting upright in bed. She still has some mild aches, but did not realize that she was actually having fever. She still has some sinus congestion. No sore throat. Does have occasional cough, minimal sputum production. No chest pain. Denies nausea, vomiting or diarrhea. No dysuria, frequency, or urgency. Denies any falls or trauma. PAST MEDICAL HISTORY: Positive for the above-mentioned breast cancer status post chemotherapy. PAST SURGICAL HISTORY: Positive for the above-mentioned mastectomy, lymph node biopsy, tonsillectomy as well as Port-A-Cath placement. REVIEW OF SYSTEMS: Otherwise negative except for mentioned above. ALLERGIES: No known drug allergies. SOCIAL HISTORY: She continues to smoke. Denies any gross alcohol use. FAMILY HISTORY: Mother had breast cancer. Her sister is otherwise healthy. CURRENT MEDICATIONS: Include Tamiflu, Zofran, Protonix. Other meds are available and have been reviewed in the chart. PHYSICAL EXAMINATION: VITAL SIGNS: T-max 102.6, currently 98.4. Pulse 81, respirations 16, blood pressure 112/62, satting 95% on room air. CONSTITUTIONAL: She is very pleasant. She is cooperative. She is in no acute distress. She wears glasses. HEENT: Pupils are equal and reactive. She has normal conjunctivae. Oral cavity, oropharynx is clear. No signs of thrush. NECK: Supple, with no JVD. LUNGS: Clear to auscultation. HEART: S1, S2, without murmur. Port-A-Cath in the right chest without signs of complications. ABDOMEN: Soft, nontender, nondistended with positive bowel sounds. EXTREMITIES: No clubbing, cyanosis or gross edema. SKIN: Warm to touch without signs of generalized rash. NEUROLOGIC: She is nonfocal, moves all extremities. PSYCHIATRIC: Affect was pleasant. LABORATORY DATA: White count 0.8, hemoglobin of 11.6, platelets of 155, neutrophils are 29 lymphs were 51. Creatinine 0.6, glucose was 89. Influenza was A ____. Chest x-ray showed no acute radiographic abnormality. IMPRESSION: 1. Influenza A from 03/18/2016, did get vaccinated this year. 2. Fever. 3. Immunosuppression. 4. Breast cancer, status post chemotherapy on 03/12/2016 and Neulasta on 03/13/2016. 5. Port-A-Cath, right chest appears to be clean currently. RECOMMENDATIONS: We will continue the Tamiflu. Given her immunosuppression, added cefepime a gram q. 8. This was discussed with pharmacy. Will follow up on labs and cultures. Thank you for allowing me participate this patient's care. Should you have further questions, please do not hesitate to contact me. LUIS ALFREDO ORTEGA MD DR: DEANN/sanya JOB#: [id number] / [id number]
[2016-03-19 23:00] VITALS: BP 101/62
[2016-03-20] MEDS: ACETAMINOPHEN 325 MG TABLET. PO PRN (01:42)
[2016-03-20] MEDS: FLUTICASONE 50MCG/NASAL SPRAY 16GM BOTTLE. NS SCH ×2 (02:22→08:24)
[2016-03-20 02:23] VITALS: BP 106/62
[2016-03-20] MEDS: CEFEPIME HCL 1 GM in IV NORMAL SALINE 50ML 50 ML IV SCH ×3 (06:05→21:36)
[2016-03-20] MEDS: IPRATRPIUM/ALBUTEROL 0.5/2.5MG 3 ML NEBU. NEB SCH ×4 (06:15→18:22)
[2016-03-20 07:00] VITALS: BP 112/65
--- NOTE | 2016-03-20 07:44 | PDOC ---
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 03/20/16 0744: IM PROGRESS NOTES- Subjective Subjective feeling better, minimal cough, soft BM not quite diarrhea Objective Objective alert appropriate Vitals Vital Signs Date Time Temp Pulse Resp B/P Pulse Ox O2 Delivery O2 Flow Rate FiO2 03/20/16 06:15 Room Air 03/20/16 02:23 99.1 88 14 106/62 95 99.1 Input & Output Intake and Output 03/20/16 07:00 Intake Total 580 ml Output Total 550 ml Balance 30 ml Intake Oral 480 ml IV Total 100 ml Output Urine Total 550 ml # Voids 3 Physical Exam Physical Exam General appearance - alert,ill appearing, and in no distress Mental Status - alert, oriented to person, place, and time, affect appropriate to mood Head - normal Hair loss secondary to chemotherapy Chest - clear to auscultation, no wheezes, rales or rhonchi Heart - S1 and S2 normal Abdomen - soft, nontender, nondistended, BS+ Neurological -no acute focal neurological deficit noted. Musculoskeletal - no muscular tenderness noted Extremities - no pedal edema Skin - warm and dry Labs Laboratory Tests Test 03/18/16 18:25 03/19/16 06:45 White Blood Count 0.9x10^3/uL (4.0-11.0) 0.8x10^3/uL (4.0-11.0) Red Blood Count 4.13x10^6/uL (3.50-5.40) 3.78x10^6/uL (3.50-5.40) Hemoglobin 12.3g/dL (12.0-15.5) 11.6g/dL (12.0-15.5) Hematocrit 35.8% (36.0-47.0) 33.9% (36.0-47.0) Mean Corpuscular Volume 87fL (79-100) 90fL (79-100) Mean Corpuscular Hemoglobin 30pg (25-35) 31pg (25-35) Mean Corpuscular Hemoglobin Concent 35g/dL (31-37) 34g/dL (31-37) Red Cell Distribution Width 13.1% (11.5-14.5) 13.4% (11.5-14.5) Platelet Count 184x10^3/uL (140-400) 155x10^3/uL (140-400) Neutrophils (%) (Auto) 54% (31-73) 29% (31-73) Lymphocytes (%) (Auto) 34% (24-48) 51% (24-48) Monocytes (%) (Auto) 10% (0-9) 17% (0-9) Eosinophils (%) (Auto) 0% (0-3) 0% (0-3) Basophils (%) (Auto) 2% (0-3) 3% (0-3) Neutrophils # (Auto) 0.5x10^3uL (1.8-7.7) 0.2x10^3uL (1.8-7.7) Lymphocytes # (Auto) 0.3x10^3/uL (1.0-4.8) 0.4x10^3/uL (1.0-4.8) Monocytes # (Auto) 0.1x10^3/uL (0.0-1.1) 0.1x10^3/uL (0.0-1.1) Eosinophils # (Auto) 0.0x10^3/uL (0.0-0.7) 0.0x10^3/uL (0.0-0.7) Basophils # (Auto) 0.0x10^3/uL (0.0-0.2) 0.0x10^3/uL (0.0-0.2) Segmented Neutrophils % 50% (35-66) Lymphocytes % 36% (24-48) Monocytes % 14% (0-10) Platelet Estimate Adequate (ADEQUATE) Large Platelets Occ Giant Platelets Occ Polychromasia Slight Ovalocytes Occ Sodium Level 139mmol/L (136-145) 141mmol/L (136-145) Potassium Level 3.7mmol/L (3.5-5.1) 3.8mmol/L (3.5-5.1) Chloride Level 102mmol/L (98-107) 107mmol/L (98-107) Carbon Dioxide Level 30mmol/L (21-32) 24mmol/L (21-32) Anion Gap 7 (6-14) 10 (6-14) Blood Urea Nitrogen 16mg/dL (7-20) 9mg/dL (7-20) Creatinine 0.6mg/dL (0.6-1.0) 0.5mg/dL (0.6-1.0) Estimated GFR (Cockcroft-Gault) 101.3 125.0 Glucose Level 99mg/dL (70-99) 87mg/dL (70-99) Calcium Level 8.5mg/dL (8.5-10.1) 7.8mg/dL (8.5-10.1) Troponin I Quantitative < 0.017ng/mL (0.000-0.055) Influenza Type A Antigen Positive (NEGATIVE) Influenza Type B Antigen Negative (NEGATIVE) Meds Current Medications Cefepime HCl/ Sodium Chloride (Maxipime/Iv Sodium Chloride 0.9% 50ml) 50 ml @ 100 mls/hr Q8HRS IV Last administered on 03/20/16 06:05; Start 03/19/16 at 09: 00 Fluticasone Propionate (Flonase) 2 spray DAILY NS Last administered on 02:22; Start 03/20/16 at 02:00 Sodium Chloride (Saline Mist Nasal) 2 marshal QID NS ; Start 03/20/16 at 09:00 Tbo-Filgrastim (Granix) 300 mcg QHS SQ Last administered on 03/19/16 20:39; Start 03/19/16 at 21:00 Assessment Assessment Initial IMPRESSION: 1. Influenzae A no sepsis 2. Neutropenia with ANC <1000 3. L breast invasive hi grade ductal cancer triple neg T2N0N0 Stage 11A currently receiving chemotherapy 4. anemia secondary to chemo/illness PLAN: Influenzae A Tamiflu initiated supportive care codeine based cough syrup nebulizer QID Tm 102.6 during night, 03/19 100.0 03/20 99.1F IV NS 75cc/hr airborne/contact precautions BC prelim negative Neutropenia Admit WBC 0.9 03/20 0.8 neutropenic precautions granix to be given today for neutropenia Breast cancer/L mastectomy/chemo consult Dr. Mcfarland note reviewed anemia chemo/antibiotics Admit Hgb 12.3 03/20 11.6 monitor DVT/GI prophylaxis SCD/JOSÉ MIGUEL OOB to chair PPI For further plan of care, please refer to the orders. Plan Plan For more details regarding further plans, please refer to the orders. ELLI STRANGE MD 03/20/16 1116: IM PROGRESS NOTES- Assessment Assessment The patient was seen and examined by me. Chart reviewed and plan of care formulated. Discussed with, reviewed and agree with LABORATORY CHEMIST's notes, plan of care and orders with modifications as necessary. For more details regarding further plans, please refer to the orders. GEOFF HUIZAR APRN Mar 20, 2016 07:44 ELLI STRANGE MD Mar 20, 2016 11:16
--- NOTE | 2016-03-20 08:17 | PDOC ---
Infectious Disease Note Subjective Subjective Better. Occ Loose stool. No gross sinus congestion. Taste off a little ROS ROS GEN: Denies fevers, chills, sweats HEENT: Denies blurred vision, sore throat CV: Denies chest pain RESP: Denies shortness of air, cough GI: Denies n/v/d NEURO: Denies confusion, dizziness MSK: Denies weakness, joint pain/swelling Vital Sign Vital Signs Vital Signs Date Time Temp Pulse Resp B/P Pulse Ox O2 Delivery O2 Flow Rate FiO2 03/20/16 07:00 97.5 85 20 112/65 97 Room Air 97.5 Physical Exam PHYSICAL EXAM GENERAL: NAD, Alert HEENT: PERRL, OC/OP -clear NECK: Supple, no JVD, no LN LUNGS: Clear HEART: S1S2, no gallop, no murmur ABD: Soft, NT, no organomegaly, no rebound EXT: No edema, no cyanosis 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 Did get vaccinated this year Fever - better Immunosuppression - Neutropenia - S/p Granix Breast CA s/p Chemo 03/12 and neulasta 03/13 Port a cath right chest - appears clean Plan Plan of Care Cont Tamiflu Added Cefepime 03/19 F/u labs and cults D/w LUIS ALFREDO Andrews MD Mar 20, 2016 08:17
[2016-03-20] MEDS: PANTOPRAZOLE 40 MG TABLET. PO SCH (08:23)
[2016-03-20] MEDS: OSELTAMIVIR 75 MG CAPSULE PO SCH ×2 (08:23→21:35)
[2016-03-20] MEDS: SODIUM CHLORIDE 0.65% NASAL SPRAY 45ML BOTTLE. NS SCH ×4 (08:24→21:00)
[2016-03-20] MEDS: IV NORMAL SALINE 1000ML BAG 1,000 ML IV SCH ×2 (08:28→21:36)
[2016-03-20 09:31] LABS: BASO % 1 % (0-3); EOS % 0 % (0-3); HEMATOCRIT 36.7 % (36.0-47.0); HEMOGLOBIN 12.3 g/dL (12.0-15.5); LYMPH # 0.7 x10^3/uL (1.0-4.8); LYMPH % 43 % (24-48); MEAN CORPUSCULAR HEMOGLOBIN 30 pg (25-35); MEAN CORPUSCULAR HGB CONC 34 g/dL (31-37); MEAN CORPUSCULAR VOLUME 89 fL (79-100); MONO % 16 % (0-9); NEUT % 40 % (31-73); PLATELET COUNT 172 x10^3/uL (140-400); RED BLOOD COUNT 4.14 x10^6/uL (3.50-5.40); RED CELL DISTRIBUTION WIDTH 13.4 % (11.5-14.5)
[2016-03-20 09:33] LABS: WHITE BLOOD COUNT 1.7 x10^3/uL (4.0-11.0)
[2016-03-20 11:00] VITALS: BP 117/73
--- NOTE | 2016-03-20 12:13 | PDOC ---
PROGRESS NOTES Subjective Subjective c/c - f/u of breast ca and neutropenia Objective Objective Vital Signs Date Time Temp Pulse Resp B/P Pulse Ox O2 Delivery O2 Flow Rate FiO2 03/20/16 11:00 99.3 89 18 117/73 95 Room Air 99.3 Intake and Output 03/20/16 07:00 Intake Total 580 ml Output Total 550 ml Balance 30 ml Intake Oral 480 ml IV Total 100 ml Output Urine Total 550 ml # Voids 3 Physical Exam Abdomen: No tenderness General: Alert, Oriented X3 HEENT: Atraumatic Psych/Mental Status: Mental status NL Assessment Assessment Problems Medical Problems: (1) Influenza A Status: Acute (2) Weakness Status: Acute 1. Invasive ductal carcinoma of the left breast lower inner quadrant diagnosed on 12/12/2015 status post left mastectomy and sentinel lymph node biopsy on .~ This is a grade 3 triple negative tumor measuring 2.4 cm and hence it is staged as a T2N0M0 stage IIA breast cancer.~ I discussed in detail with the patient regarding the diagnosis and prognosis of breast cancer.~ I recommended adjuvant chemotherapy considering the grade 3 tumor and triple negative malignancy.~ I recommended adjuvant chemotherapy with Adriamycin and Cytoxan followed by Taxol.~ I reviewed the risks and benefits of chemotherapy.~ She understands and agreed to proceed with the plan. echocardiogram for prechemotherapy evaluation: EF 65% pn 02/04/16 I initiated adjuvant chemotherapy with AC on 02/27/16. Tolerated first cycle quite well except for mild n/v and bone pains Received cycle 2 on 03/12/16 and neulasta on 03/13/16. She was admitted to [facility] on 03/18/16 with a chief complaint of coughing non productive dry, weakness, diarrhea, and body aches 2 day prior to ED evaluation. Neutropenia present with ANC 500. EKG SR. CXR clear. Influenzae A + . She is admitted for Influenzae A. I will defer cycle 3 by 1 week. 2. Neutropenia - worse this cycle, s/p neulasta on 03/13/16. Started granix in view of severe neutropenia and Influenza A. I d/w Dr Haley and Dr Oliveira. WBC better at 1.7 3.Influenza A. Comment Review of Relevant I have reviewed the following items donny (where applicable) has been applied. Labs Laboratory Tests Test 03/18/16 18:25 1/19/17 06:45 03/20/16 09:00 White Blood Count 0.9x10^3/uL (4.0-11.0) 0.8x10^3/uL (4.0-11.0) 1.7x10^3/uL (4.0-11.0) Red Blood Count 4.13x10^6/uL (3.50-5.40) 3.78x10^6/uL (3.50-5.40) 4.14x10^6/uL (3.50-5.40) Hemoglobin 12.3g/dL (12.0-15.5) 11.6g/dL (12.0-15.5) 12.3g/dL (12.0-15.5) Hematocrit 35.8% (36.0-47.0) 33.9% (36.0-47.0) 36.7% (36.0-47.0) Mean Corpuscular Volume 87fL (79-100) 90fL (79-100) 89fL (79-100) Mean Corpuscular Hemoglobin 30pg (25-35) 31pg (25-35) 30pg (25-35) Mean Corpuscular Hemoglobin Concent 35g/dL (31-37) 34g/dL (31-37) 34g/dL (31-37) Red Cell Distribution Width 13.1% (11.5-14.5) 13.4% (11.5-14.5) 13.4% (11.5-14.5) Platelet Count 184x10^3/uL (140-400) 155x10^3/uL (140-400) 172x10^3/uL (140-400) Neutrophils (%) (Auto) 54% (31-73) 29% (31-73) 40% (31-73) Lymphocytes (%) (Auto) 34% (24-48) 51% (24-48) 43% (24-48) Monocytes (%) (Auto) 10% (0-9) 17% (0-9) 16% (0-9) Eosinophils (%) (Auto) 0% (0-3) 0% (0-3) 0% (0-3) Basophils (%) (Auto) 2% (0-3) 3% (0-3) 1% (0-3) Neutrophils # (Auto) 0.5x10^3uL (1.8-7.7) 0.2x10^3uL (1.8-7.7) 0.7x10^3uL (1.8-7.7) Lymphocytes # (Auto) 0.3x10^3/uL (1.0-4.8) 0.4x10^3/uL (1.0-4.8) 0.7x10^3/uL (1.0-4.8) Monocytes # (Auto) 0.1x10^3/uL (0.0-1.1) 0.1x10^3/uL (0.0-1.1) 0.3x10^3/uL (0.0-1.1) Eosinophils # (Auto) 0.0x10^3/uL (0.0-0.7) 0.0x10^3/uL (0.0-0.7) 0.0x10^3/uL (0.0-0.7) Basophils # (Auto) 0.0x10^3/uL (0.0-0.2) 0.0x10^3/uL (0.0-0.2) 0.0x10^3/uL (0.0-0.2) Segmented Neutrophils % 50% (35-66) Lymphocytes % 36% (24-48) Monocytes % 14% (0-10) Platelet Estimate Adequate (ADEQUATE) Large Platelets Occ Giant Platelets Occ Polychromasia Slight Ovalocytes Occ Sodium Level 139mmol/L (136-145) 141mmol/L (136-145) Potassium Level 3.7mmol/L (3.5-5.1) 3.8mmol/L (3.5-5.1) Chloride Level 102mmol/L (98-107) 107mmol/L (98-107) Carbon Dioxide Level 30mmol/L (21-32) 24mmol/L (21-32) Anion Gap 7 (6-14) 10 (6-14) Blood Urea Nitrogen 16mg/dL (7-20) 9mg/dL (7-20) Creatinine 0.6mg/dL (0.6-1.0) 0.5mg/dL (0.6-1.0) Estimated GFR (Cockcroft-Gault) 101.3 125.0 Glucose Level 99mg/dL (70-99) 87mg/dL (70-99) Calcium Level 8.5mg/dL (8.5-10.1) 7.8mg/dL (8.5-10.1) Troponin I Quantitative < 0.017ng/mL (0.000-0.055) Influenza Type A Antigen Positive (NEGATIVE) Influenza Type B Antigen Negative (NEGATIVE) Laboratory Tests Test 03/20/16 09:00 White Blood Count 1.7x10^3/uL (4.0-11.0) Red Blood Count 4.14x10^6/uL (3.50-5.40) Hemoglobin 12.3g/dL (12.0-15.5) Hematocrit 36.7% (36.0-47.0) Mean Corpuscular Volume 89fL (79-100) Mean Corpuscular Hemoglobin 30pg (25-35) Mean Corpuscular Hemoglobin Concent 34g/dL (31-37) Red Cell Distribution Width 13.4% (11.5-14.5) Platelet Count 172x10^3/uL (140-400) Neutrophils (%) (Auto) 40% (31-73) Lymphocytes (%) (Auto) 43% (24-48) Monocytes (%) (Auto) 16% (0-9) Eosinophils (%) (Auto) 0% (0-3) Basophils (%) (Auto) 1% (0-3) Neutrophils # (Auto) 0.7x10^3uL (1.8-7.7) Lymphocytes # (Auto) 0.7x10^3/uL (1.0-4.8) Monocytes # (Auto) 0.3x10^3/uL (0.0-1.1) Eosinophils # (Auto) 0.0x10^3/uL (0.0-0.7) Basophils # (Auto) 0.0x10^3/uL (0.0-0.2) Microbiology 03/19/16 Blood Culture - Preliminary, Resulted NO GROWTH AFTER 1 DAY Medications Current Medications Promethazine HCl/ Codeine 5 ml 5 ml 1X ONCE PO Last administered on 03/18/16 18:47; Start 03/18/16 at 18:30; Stop 03/18/16 at 18:31; Status DC Sodium Chloride (Iv Sodium Chloride 0.9% 1000ml Bag) 1,000 ml @ 1,000 mls/hr 1X ONCE IV Last administered on 03/18/16 18:47; Start 03/18/16 at 18:30; Stop 03/19/16 at 06:57; Status DC Ondansetron HCl (Zofran) 4 mg PRN Q8HRS PRN IV NAUSEA/VOMITING Last administered on 03/19/16 00:57; Start 03/18/16 at 19:45; Stop 03/19/16 at 06:57 ; Status DC Albuterol/ Ipratropium (Duoneb) 3 ml RTQID NEB Last administered on 03/18/16 21:07; Start 03/18/16 at 20:00; Stop 03/19/16 at 06:57; Status DC Oseltamivir Phosphate 75 mg 75 mg BID PO Last administered on 03/20/16 08:23; Start 03/18/16 at 21:00; Stop 03/23/16 at 20:59 Sodium Chloride (Iv Sodium Chloride 0.9% 1000ml Bag) 1,000 ml @ 100 mls/hr 1X ONCE IV Last administered on 03/18/16 21:29; Start 03/18/16 at 19:45; Stop at 06:57; Status DC Acetaminophen 650 mg 650 mg PRN Q6HRS PRN PO MILD PAIN / TEMP Last administered on 03/20/16 01:42; Start 03/19/16 at 03:00 Sodium Chloride (Iv Sodium Chloride 0.9% 1000ml Bag) 1,000 ml @ 75 mls/hr [id number] IV Last administered on 03/20/16 08:28; Start 03/19/16 at 06:45 Albuterol/ Ipratropium (Duoneb) 3 ml RTQID NEB Last administered on 03/20/16 06:15; Start 03/19/16 at 07:00 Ondansetron HCl (Zofran) 4 mg PRN Q8HRS PRN IV NAUSEA/VOMITING; Start 03/19/16 at 07:00 Promethazine HCl/ Codeine (Phenergan With Codeine) 5 ml PRN Q6HRS PRN PO COUGH ; Start 03/19/16 at 07:00 Pantoprazole Sodium 40 mg 40 mg DAILYAC PO Last administered on 03/20/16 08:23 ; Start 03/19/16 at 07:30 Cefepime HCl/ Sodium Chloride (Maxipime/Iv Sodium Chloride 0.9% 50ml) 50 ml @ 100 mls/hr Q8HRS IV Last administered on 03/20/16 06:05; Start 03/19/16 at 09: 00 Tbo-Filgrastim (Granix) 300 mcg QHS SQ Last administered on 03/19/16 20:39; Start 03/19/16 at 21:00 Fluticasone Propionate (Flonase) 2 spray DAILY NS Last administered on 08:24; Start 03/20/16 at 02:00 Sodium Chloride (Saline Mist Nasal) 2 marshal QID NS Last administered on 08:24; Start 03/20/16 at 09:00 Active Scripts Active Senna Plus Tablet (Sennosides/Docusate Sodium) 1 Each Tablet 1 Each PO BID Zofran Odt (Ondansetron) 4 Mg Tab.rapdis 1 Tab SL Q8HRS Oxycodone-Acetaminophen 5-325 (Oxycodone Hcl/Acetaminophen) 1 Each Tablet 2 Tab PO PRN Q4HRS PRN Reported Tylenol (Acetaminophen) 325 Mg Tablet 1-2 Tab PO QID Vitals/I & O Vital Sign - Last 24 Hours 03/19/16 03/19/16 03/19/16 03/19/16 15:07 15:17 19:00 19:13 Temp 98.1 98.1 98.1 98.1 Pulse 84 99 Resp 18 18 B/P 100/63 110/56 Pulse Ox 98 98 94 O2 Delivery Room Air Room Air Room Air Room Air 03/19/16 03/19/16 03/20/16 03/20/16 20:05 23:00 02:23 06:15 Temp 99.0 99.1 99.0 99.1 Pulse 91 88 Resp 17 14 B/P 101/62 106/62 Pulse Ox 92 95 O2 Delivery Room Air Room Air Room Air Room Air 03/20/16 03/20/16 03/20/16 07:00 08:00 11:00 Temp 97.5 99.3 97.5 99.3 Pulse 85 89 Resp 20 18 B/P 112/65 117/73 Pulse Ox 97 95 O2 Delivery Room Air Room Air Room Air Intake and Output 03/19/16 03/19/16 03/20/16 15:00 23:00 07:00 Intake Total 100 ml 480 ml Output Total 350 ml 200 ml Balance -250 ml 480 ml -200 ml PAMELA ZARCO MD Mar 20, 2016 12:13
[2016-03-20 15:00] VITALS: BP 129/66
[2016-03-20 19:00] VITALS: BP 119/68
[2016-03-20] MEDS: TBO-FILGRASTIM 300 MCG/0.5 ML SYRINGE. SQ SCH (21:34)
[2016-03-20 23:00] VITALS: BP 114/66
[2016-03-21 03:00] VITALS: BP 122/71
[2016-03-21] MEDS: ACETAMINOPHEN 325 MG TABLET. PO PRN ×2 (04:00→18:30)
[2016-03-21] MEDS: CEFEPIME HCL 1 GM in IV NORMAL SALINE 50ML 50 ML IV SCH ×3 (05:54→22:02)
[2016-03-21] MEDS: IPRATRPIUM/ALBUTEROL 0.5/2.5MG 3 ML NEBU. NEB SCH ×4 (07:01→19:09)
[2016-03-21 07:34] VITALS: BP 118/67
[2016-03-21] MEDS: PANTOPRAZOLE 40 MG TABLET. PO SCH (08:27)
[2016-03-21] MEDS: OSELTAMIVIR 75 MG CAPSULE PO SCH ×2 (08:27→20:22)
[2016-03-21] MEDS: FLUTICASONE 50MCG/NASAL SPRAY 16GM BOTTLE. NS SCH (08:27)
[2016-03-21] MEDS: SODIUM CHLORIDE 0.65% NASAL SPRAY 45ML BOTTLE. NS SCH ×4 (08:28→20:22)
--- NOTE | 2016-03-21 10:21 | PDOC ---
GEOFF HUIZAR [employer] ENGINEER 03/21/16 1021: IM PROGRESS NOTES- Subjective Subjective hungry Objective Objective alert appropriate Vitals Vital Signs Date Time Temp Pulse Resp B/P Pulse Ox O2 Delivery O2 Flow Rate FiO2 03/21/16 07:34 97.6 72 19 118/67 97 Room Air 97.6 Input & Output Intake and Output 03/21/16 07:00 Intake Total 1170 ml Output Total 800 ml Balance 370 ml Intake Oral 600 ml IV Total 570 ml Output Urine Total 800 ml # Voids 4 Physical Exam Physical Exam General appearance - alert,ill appearing, and in no distress Mental Status - alert, oriented to person, place, and time, affect appropriate to mood Head - normal Hair loss secondary to chemotherapy Chest - clear to auscultation, no wheezes, rales or rhonchi Heart - S1 and S2 normal Abdomen - soft, nontender, nondistended, BS+ Neurological -no acute focal neurological deficit noted. Musculoskeletal - no muscular tenderness noted Extremities - no pedal edema Skin - warm and dry Labs Laboratory Tests Test 03/20/16 09:00 White Blood Count 1.7x10^3/uL (4.0-11.0) Red Blood Count 4.14x10^6/uL (3.50-5.40) Hemoglobin 12.3g/dL (12.0-15.5) Hematocrit 36.7% (36.0-47.0) Mean Corpuscular Volume 89fL (79-100) Mean Corpuscular Hemoglobin 30pg (25-35) Mean Corpuscular Hemoglobin Concent 34g/dL (31-37) Red Cell Distribution Width 13.4% (11.5-14.5) Platelet Count 172x10^3/uL (140-400) Neutrophils (%) (Auto) 40% (31-73) Lymphocytes (%) (Auto) 43% (24-48) Monocytes (%) (Auto) 16% (0-9) Eosinophils (%) (Auto) 0% (0-3) Basophils (%) (Auto) 1% (0-3) Neutrophils # (Auto) 0.7x10^3uL (1.8-7.7) Lymphocytes # (Auto) 0.7x10^3/uL (1.0-4.8) Monocytes # (Auto) 0.3x10^3/uL (0.0-1.1) Eosinophils # (Auto) 0.0x10^3/uL (0.0-0.7) Basophils # (Auto) 0.0x10^3/uL (0.0-0.2) Meds Current Medications Tbo-Filgrastim (Granix) 300 mcg QHS SQ Last administered on 03/20/16t 21:34; Start 03/20/16 at 21:00; Stop 03/22/16 at 20:59 Assessment Assessment IMPRESSION: 1. Influenzae A no sepsis 2. Neutropenia with ANC <1000 3. L breast invasive hi grade ductal cancer triple neg T2N0N0 Stage 11A currently receiving chemotherapy 4. anemia secondary to chemo/illness PLAN: Influenzae A Tamiflu initiated supportive care codeine based cough syrup nebulizer QID Tm 102.6 during night, 03/19 100.0 03/20 99.1F IV NS 75cc/hr airborne/contact precautions BC prelim negative Neutropenia Admit WBC 0.9 03/20 1.7 neutropenic precautions granix to be given today for neutropenia Breast cancer/L mastectomy/chemo consult Dr. Mcfarland note reviewed anemia chemo/antibiotics Admit Hgb 12.3 03/20 12.3 monitor DVT/GI prophylaxis SCD/JOSÉ MIGUEL OOB to chair PPI Change diet to Regular with no restrictions. For further plan of care, please refer to the orders. Lab 03/21 pending Plan Plan For more details regarding further plans, please refer to the orders. ELLI STRANGE MD 03/21/16 1039: IM PROGRESS NOTES- Assessment Assessment The patient was seen and examined by me. Chart reviewed and plan of care formulated. Discussed with, reviewed and agree with PIANO MOVER's notes, plan of care and orders with modifications as necessary. For more details regarding further plans, please refer to the orders. Improving.Labs pending. GEOFF HUIZAR APRN Mar 21, 2016 10:21 ELLI STRANGE MD Mar 21, 2016 10:39
[2016-03-21 10:28] LABS: BASO % 0 % (0-3); EOS % 0 % (0-3); HEMATOCRIT 35.5 % (36.0-47.0); HEMOGLOBIN 12.1 g/dL (12.0-15.5); LYMPH # 1.5 x10^3/uL (1.0-4.8); LYMPH % 18 % (24-48); MEAN CORPUSCULAR HEMOGLOBIN 30 pg (25-35); MEAN CORPUSCULAR HGB CONC 34 g/dL (31-37); MEAN CORPUSCULAR VOLUME 88 fL (79-100); MONO % 15 % (0-9); NEUT % 67 % (31-73); PLATELET COUNT 200 x10^3/uL (140-400); RED BLOOD COUNT 4.04 x10^6/uL (3.50-5.40); RED CELL DISTRIBUTION WIDTH 13.2 % (11.5-14.5); WHITE BLOOD COUNT 8.3 x10^3/uL (4.0-11.0)
[2016-03-21 10:39] LABS: CALCIUM 8.4 mg/dL (8.5-10.1); CREATININE 0.6 mg/dL (0.6-1.0); GFR 101.3; POTASSIUM 3.1 mmol/L (3.5-5.1)
[2016-03-21 10:49] VITALS: BP 122/66
[2016-03-21] MEDS ORDERED: ZOLPIDEM 5 MG TABLET. PO PRN (11:15)
--- NOTE | 2016-03-21 11:18 | DISCH ---
DISCHARGE INSTRUCTIONS Condition on Discharge Condition on Discharge: Stable Activity After Discharge Activity Instructions for Disc: Activity as tolerated Diet after Discharge Diet after Discharge: Regular Contacting the DRBrenda after DC Call your doctor for: Concerns you may have Follow-Up Follow up with: Dr. Haley next Wednesday Follow Up With: Dr. Mcfarland per his instructions GEOFF HUIZAR APRN Mar 21, 2016 11:18
[2016-03-21 11:40] LABS: PLT ESTIMATE ADEQUATE (ADEQUATE)
[2016-03-21] MEDS: IV NORMAL SALINE 1000ML BAG 1,000 ML IV SCH (12:35)
[2016-03-21 15:23] VITALS: BP 161/68
--- NOTE | 2016-03-21 18:12 | PDOC ---
Infectious Disease Note Subjective Subjective Feeling better over-all Less cough Improved strength and energy ROS ROS GEN: Denies fevers, chills, sweats CV: Denies chest pain RESP: Denies shortness of air GI: Denies n/v/d NEURO: Denies headaches Vital Sign Vital Signs Vital Signs Date Time Temp Pulse Resp B/P Pulse Ox O2 Delivery O2 Flow Rate FiO2 03/21/16 17:00 Room Air 03/21/16 15:23 97.9 81 19 161/68 99 97.9 Physical Exam PHYSICAL EXAM GENERAL: Sitting on the side of the bed, eating, smiling HEENT: Oral cavity clear NECK: Supple LUNGS: Clear HEART: S1S2, no gallop, no murmur ABD: Soft, NT, BS present EXT: No edema, no cyanosis VIOLIN TEACHER: Alert, oriented x 3, no focal neurologic deficit SKIN: No rash IV: ok Port. Labs Lab Laboratory Tests Test 03/21/16 10:15 White Blood Count 8.3x10^3/uL (4.0-11.0) Red Blood Count 4.04x10^6/uL (3.50-5.40) Hemoglobin 12.1g/dL (12.0-15.5) Hematocrit 35.5% (36.0-47.0) Mean Corpuscular Volume 88fL (79-100) Mean Corpuscular Hemoglobin 30pg (25-35) Mean Corpuscular Hemoglobin Concent 34g/dL (31-37) Red Cell Distribution Width 13.2% (11.5-14.5) Platelet Count 200x10^3/uL (140-400) Neutrophils (%) (Auto) 67% (31-73) Lymphocytes (%) (Auto) 18% (24-48) Monocytes (%) (Auto) 15% (0-9) Eosinophils (%) (Auto) 0% (0-3) Basophils (%) (Auto) 0% (0-3) Neutrophils # (Auto) 5.5x10^3uL (1.8-7.7) Lymphocytes # (Auto) 1.5x10^3/uL (1.0-4.8) Monocytes # (Auto) 1.2x10^3/uL (0.0-1.1) Eosinophils # (Auto) 0.0x10^3/uL (0.0-0.7) Basophils # (Auto) 0.0x10^3/uL (0.0-0.2) Segmented Neutrophils % 44% (35-66) Band Neutrophils % 28% (0-9) Lymphocytes % 19% (24-48) Monocytes % 9% (0-10) Platelet Estimate Adequate (ADEQUATE) Sodium Level 143mmol/L (136-145) Potassium Level 3.1mmol/L (3.5-5.1) Chloride Level 107mmol/L (98-107) Carbon Dioxide Level 26mmol/L (21-32) Anion Gap 10 (6-14) Blood Urea Nitrogen 7mg/dL (7-20) Creatinine 0.6mg/dL (0.6-1.0) Estimated GFR (Cockcroft-Gault) 101.3 Glucose Level 122mg/dL (70-99) Calcium Level 8.4mg/dL (8.5-10.1) Micro BLOOD CULTURE Preliminary NO GROWTH AFTER 2 DAYS Objective Assessment Influenza A 03/18. Did get vaccinated this year Fever - better Immunosuppression - Neutropenia - S/p Granix Breast CA s/p Chemo 03/12 and Neulasta 03/13 Port a cath right chest Plan Plan of Care Cont Tamiflu and Cefepime F/u labs and cults Patient seen and examined. Chart reviewed. Case discussed with STRAWHAT INSPECTOR AND PACKER. Agree with above plan of care RENITA COLUNGA APRN Mar 21, 2016 18:12 ESTELLE LEBRON MD Mar 21, 2016 22:07
[2016-03-21 19:10] VITALS: BP 117/74
[2016-03-21] MEDS: TBO-FILGRASTIM 300 MCG/0.5 ML SYRINGE. SQ SCH (21:00)
[2016-03-21 23:16] VITALS: BP 112/64
[2016-03-22] MEDS: IV NORMAL SALINE 1000ML BAG 1,000 ML IV SCH (01:48)
[2016-03-22 03:54] VITALS: BP 110/68
[2016-03-22] MEDS: CEFEPIME HCL 1 GM in IV NORMAL SALINE 50ML 50 ML IV SCH ×2 (06:19→14:37)
[2016-03-22] MEDS: PANTOPRAZOLE 40 MG TABLET. PO SCH (06:19)
[2016-03-22 07:19] VITALS: BP 132/73
[2016-03-22] MEDS: IPRATRPIUM/ALBUTEROL 0.5/2.5MG 3 ML NEBU. NEB SCH ×2 (08:55→13:09)
[2016-03-22] MEDS: FLUTICASONE 50MCG/NASAL SPRAY 16GM BOTTLE. NS SCH (09:53)
[2016-03-22] MEDS: OSELTAMIVIR 75 MG CAPSULE PO SCH ×2 (09:53→17:02)
[2016-03-22] MEDS: SODIUM CHLORIDE 0.65% NASAL SPRAY 45ML BOTTLE. NS SCH ×3 (09:53→17:00)
[2016-03-22] MEDS ORDERED: POTASSIUM CHLORIDE 20 MEQ TABLET.ER. PO SCH (10:30)
[2016-03-22 10:56] VITALS: BP 122/68
--- NOTE | 2016-03-22 11:48 | PDOC ---
IM PROGRESS NOTES- Subjective Subjective No dyspnea. Objective Objective alert appropriate Vitals Vital Signs Date Time Temp Pulse Resp B/P Pulse Ox O2 Delivery O2 Flow Rate FiO2 03/22/16 10:56 97.5 77 16 122/68 98 Room Air 97.5 Input & Output Intake and Output 03/22/16 07:00 Intake Total 1050 ml Output Total 800 ml Balance 250 ml Intake Oral 1050 ml Output Urine Total 800 ml # Voids 3 Physical Exam Physical Exam General appearance - alert,ill appearing, and in no distress Mental Status - alert, oriented to person, place, and time, affect appropriate to mood Head - normal Hair loss secondary to chemotherapy Chest - clear to auscultation, no wheezes, rales or rhonchi Heart - S1 and S2 normal Abdomen - soft, nontender, nondistended, BS+ Neurological -no acute focal neurological deficit noted. Musculoskeletal - no muscular tenderness noted Extremities - no pedal edema Skin - warm and dry Labs Laboratory Tests Test 03/21/16 10:15 White Blood Count 8.3x10^3/uL (4.0-11.0) Red Blood Count 4.04x10^6/uL (3.50-5.40) Hemoglobin 12.1g/dL (12.0-15.5) Hematocrit 35.5% (36.0-47.0) Mean Corpuscular Volume 88fL (79-100) Mean Corpuscular Hemoglobin 30pg (25-35) Mean Corpuscular Hemoglobin Concent 34g/dL (31-37) Red Cell Distribution Width 13.2% (11.5-14.5) Platelet Count 200x10^3/uL (140-400) Neutrophils (%) (Auto) 67% (31-73) Lymphocytes (%) (Auto) 18% (24-48) Monocytes (%) (Auto) 15% (0-9) Eosinophils (%) (Auto) 0% (0-3) Basophils (%) (Auto) 0% (0-3) Neutrophils # (Auto) 5.5x10^3uL (1.8-7.7) Lymphocytes # (Auto) 1.5x10^3/uL (1.0-4.8) Monocytes # (Auto) 1.2x10^3/uL (0.0-1.1) Eosinophils # (Auto) 0.0x10^3/uL (0.0-0.7) Basophils # (Auto) 0.0x10^3/uL (0.0-0.2) Segmented Neutrophils % 44% (35-66) Band Neutrophils % 28% (0-9) Lymphocytes % 19% (24-48) Monocytes % 9% (0-10) Platelet Estimate Adequate (ADEQUATE) Sodium Level 143mmol/L (136-145) Potassium Level 3.1mmol/L (3.5-5.1) Chloride Level 107mmol/L (98-107) Carbon Dioxide Level 26mmol/L (21-32) Anion Gap 10 (6-14) Blood Urea Nitrogen 7mg/dL (7-20) Creatinine 0.6mg/dL (0.6-1.0) Estimated GFR (Cockcroft-Gault) 101.3 Glucose Level 122mg/dL (70-99) Calcium Level 8.4mg/dL (8.5-10.1) Meds Current Medications Potassium Chloride (Klor-Con) 20 meq [id number] PO Last administered on t 11:29; Start 03/22/16 at 10:30 Assessment Assessment 1. Influenzae A no sepsis 2. Neutropenia with ANC <1000 3. L breast invasive hi grade ductal cancer triple neg T2N0N0 Stage 11A currently receiving chemotherapy 4. anemia secondary to chemo/illness PLAN: Influenzae A Tamiflu initiated supportive care codeine based cough syrup nebulizer QID Tm 102.6 during night, 03/19 100.0 03/20 99.1F IV NS 75cc/hr airborne/contact precautions BC prelim negative Neutropenia Admit WBC 0.9 03/20 1.7 neutropenic precautions granix to be given today for neutropenia Breast cancer/L mastectomy/chemo consult Dr. Mcfarland note reviewed anemia chemo/antibiotics Admit Hgb 12.3 03/20 12.3 monitor DVT/GI prophylaxis SCD/JOSÉ MIGUEL OOB to chair PPI Change diet to Regular with no restrictions. For further plan of care, please refer to the orders WBC 8.3. Doing better. Ok to discharge this evening if ok with ID. D/w patient and the daughter. Discharge Management - 35 minutes. For more details regarding further plans, please refer to the orders. Plan Plan For more details regarding further plans, please refer to the orders. ELLI STRANGE MD Mar 22, 2016 11:48
[2016-03-22 15:35] VITALS: BP 126/77
--- NOTE | 2016-03-22 16:16 | PDOC ---
Infectious Disease Note Subjective Subjective Feeling well Ready to go home c/o fever blisters developing above lip ROS ROS GEN: Denies fevers, chills, sweats HEENT: Denies sore throat CV: Denies chest pain RESP: Denies shortness of air, cough GI: Denies n/v/d Vital Sign Vital Signs Vital Signs Date Time Temp Pulse Resp B/P Pulse Ox O2 Delivery O2 Flow Rate FiO2 03/22/16 15:35 97.8 73 16 126/77 97 Room Air 97.8 Physical Exam PHYSICAL EXAM GENERAL: Alert, smiling, relaxed HEENT: Oral cavity clear. Early developing herpes labialis NECK: Supple LUNGS: Clear HEART: S1S2, no gallop, no murmur ABD: Soft, NT, BS present EXT: No edema, no cyanosis SR VICE PRESIDENT: Alert, oriented x 3, no focal neurologic deficit SKIN: No rash IV: ok Port. Labs Micro BLOOD CULTURE Preliminary NO GROWTH AFTER 3 DAYS Objective Assessment Influenza A 03/18. Did get vaccinated this year Fever - better Immunosuppression - Neutropenia - S/p Granix. improved Breast CA s/p Chemo 03/12 and Neulasta 03/13 Port a cath right chest Plan Plan of Care ok discharge from ID standpoint. Rx Valtrex and Vantin Patient seen and examined. Chart reviewed. Case discussed with VECTOR CONTROL ASSISTANT. Agree with above plan. RENITA COLUNGA APRN Mar 22, 2016 16:16 ESTELLE LEBRON MD Mar 22, 2016 16:22
[2016-03-22] MEDS ORDERED: POTASSIUM CHLORIDE 20 MEQ TABLET.ER. PO ONE (17:00)
--- NOTE | 2016-03-23 09:07 | PDOC3 ---
IM DISCHARGE SUMMARY Date of Admission Date of Admission Date of Admission: Mar 18, 2016 at 19:31 Date of Discharge Date of Discharge Primary Diagnosis Primary Diagnosis 1. Influenzae A no sepsis 2. Neutropenia with ANC <1000 3. L breast invasive hi grade ductal cancer triple neg T2N0N0 Stage 11A currently receiving chemotherapy 4. anemia secondary to chemo/illness 5. moderate PCL malnutrition with no chronic malnutrition POA PLAN: Influenzae A Tamiflu initiated supportive care codeine based cough syrup nebulizer QID Tm 102.6 during night, 03/19 100.0 03/20 99.1F IV NS 75cc/hr airborne/contact precautions BC negative Neutropenia Admit WBC 0.9 03/20 1.7 neutropenic precautions granix to be given today for neutropenia Breast cancer/L mastectomy/chemo consult Dr. Mcfarland note reviewed anemia chemo/antibiotics Admit Hgb 12.3 03/21 12.1 monitor DVT/GI prophylaxis SCD/JOSÉ MIGUEL OOB to chair PPI Change diet to Regular with no restrictions. For further plan of care, please refer to the orders For further details please refer to HP for PMH, PSH, FH, SH, allergies and medications. She is being discharged home and will f/u in office. Problems: Consults Consults Eric Oliveira MD Procedures Procedures None Labs Labs Laboratory Tests Test 03/21/16 10:15 White Blood Count 8.3x10^3/uL (4.0-11.0) Red Blood Count 4.04x10^6/uL (3.50-5.40) Hemoglobin 12.1g/dL (12.0-15.5) Hematocrit 35.5% (36.0-47.0) Mean Corpuscular Volume 88fL (79-100) Mean Corpuscular Hemoglobin 30pg (25-35) Mean Corpuscular Hemoglobin Concent 34g/dL (31-37) Red Cell Distribution Width 13.2% (11.5-14.5) Platelet Count 200x10^3/uL (140-400) Neutrophils (%) (Auto) 67% (31-73) Lymphocytes (%) (Auto) 18% (24-48) Monocytes (%) (Auto) 15% (0-9) Eosinophils (%) (Auto) 0% (0-3) Basophils (%) (Auto) 0% (0-3) Neutrophils # (Auto) 5.5x10^3uL (1.8-7.7) Lymphocytes # (Auto) 1.5x10^3/uL (1.0-4.8) Monocytes # (Auto) 1.2x10^3/uL (0.0-1.1) Eosinophils # (Auto) 0.0x10^3/uL (0.0-0.7) Basophils # (Auto) 0.0x10^3/uL (0.0-0.2) Segmented Neutrophils % 44% (35-66) Band Neutrophils % 28% (0-9) Lymphocytes % 19% (24-48) Monocytes % 9% (0-10) Platelet Estimate Adequate (ADEQUATE) Sodium Level 143mmol/L (136-145) Potassium Level 3.1mmol/L (3.5-5.1) Chloride Level 107mmol/L (98-107) Carbon Dioxide Level 26mmol/L (21-32) Anion Gap 10 (6-14) Blood Urea Nitrogen 7mg/dL (7-20) Creatinine 0.6mg/dL (0.6-1.0) Estimated GFR (Cockcroft-Gault) 101.3 Glucose Level 122mg/dL (70-99) Calcium Level 8.4mg/dL (8.5-10.1) Brief hospital course Brief hospital course This 61 year old female who presented with influenzae A was admitted. The following is a summary of her treatment: Influenzae A Tamiflu initiated supportive care codeine based cough syrup nebulizer QID Tm 102.6 during night, 03/19 100.0 03/20 99.1F IV NS 75cc/hr airborne/contact precautions BC prelim negative Neutropenia Admit WBC 0.9 03/21 8.3 neutropenic precautions granix given 03/20 for neutropenia Breast cancer/L mastectomy/chemo consult Dr. Mcfarland note reviewed anemia chemo/antibiotics Admit Hgb 12.3 03/21 monitor DVT/GI prophylaxis SCD/JOSÉ MIGUEL OOB to chair PPI Change diet to Regular with no restrictions. For further plan of care, please refer to the orders WBC 8.3. For more details regarding the past history, family history, social history, surgical history and other details, please refer to History and Physical. Medications Medications reviewed and reconciled for discharge. Allergy Allergies Coded Allergies Type Severity Reaction Last Updated Verified No Known Drug Allergies 11/16/16 No Follow up in 5 days. DISPOSITION: Home Comments Discharge Management - 35 minutes. For other details please refer to discharge instructions GEOFF HUIZAR APRN Mar 23, 2016 09:07
== END 2016-03-22 18:45 | disposition home or self-care (01) | DRG 194 ==
LOC: ER 17:03 → 6 SOUTH 19:31
PROVIDERS: ADMIT Internal Medicine; ATTEND Internal Medicine
DX: J10.1 Influenza due to other identified influenza virus with other respiratory manifestations (principal); E44.0 Moderate protein-calorie malnutrition; E87.6 Hypokalemia; E78.5 Hyperlipidemia, unspecified; D70.9 Neutropenia, unspecified; D64.81 Anemia due to antineoplastic chemotherapy; F17.210 Nicotine dependence, cigarettes, uncomplicated; G56.00 Carpal tunnel syndrome, unspecified upper limb; T45.1X5A Adverse effect of antineoplastic and immunosuppressive drugs, initial encounter; Z80.3 Family history of malignant neoplasm of breast; Z82.49 Family history of ischemic heart disease and other diseases of the circulatory system; Z83.3 Family history of diabetes mellitus; Z85.3 Personal history of malignant neoplasm of breast; Z90.12 Acquired absence of left breast and nipple; Z92.21 Personal history of antineoplastic chemotherapy; Z68.20 Body mass index [BMI] 20.0-20.9, adult; Z98.890 Other specified postprocedural states
CPT/HCPCS: 36415; 71010; 80048; 84484; 85007; 85027; 87040; 87804; 93005; 94640; 94760; J0692; J2405; J7030; J7620; 99285-25; J1442

== ENCOUNTER 2016-05-01 19:16 | Emergency (ER) | payer OTHER ==
[~2016-05-01] VITALS: Ht 152.4 cm; Wt 47.6 kg
[2016-05-01 19:29] VITALS: BP 169/81
[2016-05-01] MEDS ORDERED: [UNRECOGNIZED DRUG - CODE] MM (20:53)
--- NOTE | 2016-05-01 20:53 | PHYS DOC ---
Past Medical History Past Medical History: Cancer Additional Past Medical Histor: BREAST CA Past Surgical History: Tonsillectomy Additional Past Surgical Histo: LEFT MASTECTOMY Alcohol Use: None Drug Use: None Adult General Chief Complaint Chief Complaint: OTHER COMPLAINTS [facility] HPI 61-year-old female who is undergoing chemotherapy for breast malignancy who underwent a new round of chemotherapy and now has developed some taste disturbance as well as dry mouth. She also states while she was receiving her chemotherapy through her right-sided chest port that she developed some chest discomfort around the port site that has persisted for the last day. She denies any fever or chills or nausea or vomiting. She denies any shortness of breath. She is in no acute distress and satting near 100% on room air. She additionally complains of some mouth sores for which she is taking medications. Review of Systems Review of Systems Constitutional: Denies fever or chills [] Eyes: Denies change in visual acuity, redness, or eye pain [] HENT: Denies nasal congestion or sore throat [] Respiratory: Denies cough or shortness of breath [] Cardiovascular: No additional information not addressed in HPI [] GI: Denies abdominal pain, nausea, vomiting, bloody stools or diarrhea [] : Denies dysuria or hematuria [] Musculoskeletal: Denies back pain or joint pain [] Integument: Denies rash or skin lesions [] Neurologic: Denies headache, focal weakness or sensory changes [] Endocrine: Denies polyuria or polydipsia [] Allergies Allergies Allergies Coded Allergies Type Severity Reaction Last Updated Verified No Known Drug Allergies 01/15/16 No Physical Exam Physical Exam Constitutional: Well developed, well nourished, no acute distress, non-toxic appearance. [] HENT: Normocephalic, atraumatic, bilateral external ears normal, oropharynx moist, no oral exudates, nose normal. [] Eyes: PERRLA, EOMI, conjunctiva normal, no discharge. [] Neck: Normal range of motion, no tenderness, supple, no stridor. [] Cardiovascular:Heart rate regular rhythm, no murmur [] Lungs & Thorax: Bilateral breath sounds clear to auscultation, right sided chest port site appears normal with no obvious signs of cellulitis or swelling [ ] Abdomen: Bowel sounds normal, soft, no tenderness, no masses, no pulsatile masses. [] Skin: Warm, dry, no erythema, no rash. [] Back: No tenderness, no CVA tenderness. [] Extremities: No tenderness, no cyanosis, no clubbing, ROM intact, no edema. [] Neurologic: Alert and oriented X 3, normal motor function, normal sensory function, no focal deficits noted. [] Psychologic: Affect normal, judgement normal, mood normal. [] Current Patient Data Vital Signs Vital Signs Date Time Temp Pulse Resp B/P Pulse Ox O2 Delivery O2 Flow Rate FiO2 05/01/16 19:29 98.0 93 18 97 Room Air 98.0 EKG EKG [] Radiology/Procedures Radiology/Procedures One view of her chest demonstrated adequate position of the chest port with the distal end of the port in the appropriate position. There is no evidence of any acute abnormality. Course & Med Decision Making Course & Med Decision Making Pertinent Labs and Imaging studies reviewed. (See chart for details) This 61-year-old female had a portal view of her chest that demonstrated adequate position of her chemotherapy port. I counseled that she is to continue taking her medications for her mild source and I wrote her a prescription for lozenges for her dry mouth. I expressed the concern that she will need to follow closely with her oncologist as I believe she's having significant side effects from her new chemotherapy regimen area. Patient is very agreeable with this plan and was discharged without incident. Dragon Disclaimer Dragon Disclaimer This electronic medical record was generated, in whole or in part, using a voice recognition dictation system. Departure Departure Impression: Primary Impression: Xerostomia Additional Impressions: Smell or taste sensation disturbance Post chemo evaluation Disposition: 01 HOME, SELF-CARE Admitting Physician: Other Condition: STABLE Referrals: ELLI STRANGE MD (PCP) Patient Instructions: Chemotherapy Additional Instructions: Please use lozenges for your dry mouth. Follow up closely with her oncologist regarding her continued symptoms. Return to the ER immediately if you develop any worsening of your symptoms. Return to the ER immediately if you develop any fever or chills or difficulty breathing. Scripts Saliva Stimulant Comb. No.5 (Salivasure)1 Each Lozenge1 Each MM DAILY #10 LOZENGE Prov:SHIRIN HOWE DO 05/01/16 Problem Qualifiers SHIRIN HOWE DO May 01, 2016 20:53
--- NOTE | 2016-05-02 08:55 | RAD ---
Examination: Single frontal view the chest History: History of chest pain, check line placement. Comparison: 03/18/2016 Findings: Right-sided Port-A-Cath is unchanged. The cardiomediastinal silhouette grossly appears unremarkable. There is no acute infiltrate or visualized pneumothorax identified. Impression: No acute cardiopulmonary findings.
== END 2016-05-01 21:00 | disposition home or self-care (01) ==
LOC: ER 19:16
DX: K11.7 Disturbances of salivary secretion (principal); R43.8 Other disturbances of smell and taste; R07.9 Chest pain, unspecified; Z79.899 Other long term (current) drug therapy; Z90.12 Acquired absence of left breast and nipple; Z85.3 Personal history of malignant neoplasm of breast
CPT/HCPCS: 71010; 99283-25

== ENCOUNTER 2016-05-02 17:19 | Inpatient (IN) | payer OTHER ==
[~2016-05-02] VITALS: Ht 152.4 cm; Wt 47.6 kg
[~2016-05-02 17:19] MED LIST changes: +[UNRECOGNIZED DRUG - CODE] MM
[2016-05-02 17:59] LABS: BILIRUBIN,URINE NEGATIVE (NEG); GLUCOSE,URINE 500 mg/dL (NEG); NITRITE,URINE NEGATIVE (NEG); PH,URINE 5.5; PROTEIN,URINE NEGATIVE (NEG-TRACE); UROBILINOGEN,URINE 0.2 mg/dL (0.2 mg/dL)
[2016-05-02 18:22] LABS: BASO # 0.1 x10^3/uL (0.0-0.2); BASO % 0 % (0-3); EOS % 0 % (0-3); HEMATOCRIT 33.2 % (36.0-47.0); HEMOGLOBIN 10.9 g/dL (12.0-15.5); LYMPH # 0.2 x10^3/uL (1.0-4.8); LYMPH % 1 % (24-48); MEAN CORPUSCULAR HEMOGLOBIN 29 pg (25-35); MEAN CORPUSCULAR HGB CONC 33 g/dL (31-37); MEAN CORPUSCULAR VOLUME 90 fL (79-100); MONO % 0 % (0-9); NEUT % 99 % (31-73); PLATELET COUNT 261 x10^3/uL (140-400); RED CELL DISTRIBUTION WIDTH 15.9 % (11.5-14.5); WHITE BLOOD COUNT 34.8 x10^3/uL (4.0-11.0)
[2016-05-02 18:23] LABS: BACTERIA,URINE FEW /HPF (0-FEW); RBC,URINE OCC /HPF (0-2); SQUAMOUS EPITHELIAL CELL,UR MOD /LPF
[2016-05-02 18:32] LABS: ANION GAP 14 (6-14); BLOOD UREA NITROGEN 12 mg/dL (7-20); CALCIUM 8.6 mg/dL (8.5-10.1); CARBON DIOXIDE 22 mmol/L (21-32); CHLORIDE 100 mmol/L (98-107); CREATININE 0.8 mg/dL (0.6-1.0); GFR 72.7; GLUCOSE 212 mg/dL (70-99); POTASSIUM 3.7 mmol/L (3.5-5.1); SODIUM 136 mmol/L (136-145)
[2016-05-02 18:44] LABS: ALBUMIN 2.7 g/dL (3.4-5.0); ALK PHOS 110 U/L (46-116); ALT (SGPT) 31 U/L (14-59); AST (SGOT) 33 U/L (15-37); DIRECT BILIRUBIN < 0.1 mg/dL (0.0-0.2); TOTAL BILIRUBIN 0.3 mg/dL (0.2-1.0); TOTAL PROTEIN 6.3 g/dL (6.4-8.2)
[2016-05-02] MEDS ORDERED: FENTANYL PF 100 MCG/2 ML VIAL. IV PRN (19:00)
[2016-05-02 19:12] LABS: ANISOCYTOSIS SLIGHT; PLT ESTIMATE ADEQUATE (ADEQUATE); TOXIC VACUOLATION SLIGHT
--- NOTE | 2016-05-02 19:21 | PHYS DOC ---
Past Medical History Past Medical History: Cancer Additional Past Medical Histor: BREAST CA Past Surgical History: Tonsillectomy Additional Past Surgical Histo: LEFT MASTECTOMY Additional Information: 1 ppd Alcohol Use: None Drug Use: None Adult General Chief Complaint Chief Complaint: WEAKNESS/GENERALIZED HPI HPI 61-year-old female presenting to the emergency department today with lower abdominal pain that is sharp moderate intermittent and associated with nausea without vomiting. She recently received chemotherapy approximately 2 days ago. He reports that she was given this medication to bring up her blood counts. She has pain generalized in her muscles that is moderate nonradiating worse with walking. She denies any fevers or chills. Review of systems is negative for chest pain shortness of breath. Positive for nausea. Negative for vomiting. All other review of systems is negative unless otherwise noted in history of present illness. Review of Systems Review of Systems SEE ABOVE. Current Medications Current Medications Current Medications Medications (Trade) Dose Ordered Sig/Karon Start Time Stop Time Status Last Admin Dose Admin Fentanyl Citrate (Fentanyl 2ml Vial) 25 mcg PRN Q30MIN PRN 05/02/16 19:00 05/02/16 19:04 25 MCG Morphine Sulfate 2 mg 2 mg PRN Q2HR PRN 05/02/16 21:45 05/03/16 21:44 Ondansetron HCl (Zofran) 4 mg PRN Q8HRS PRN 05/02/16 21:45 05/03/16 21:44 Sodium Chloride (Iv Sodium Chloride 0.9% 500ml Bag) 500 ml @ 500 mls/hr 1X ONCE 05/02/16 19:30 05/02/16 20:29 DC 05/02/16 19:05 500 MLS/HR Sodium Chloride (Iv Sodium Chloride 0.9% 1000ml Bag) 1,000 ml @ 125 mls/hr Q8H 05/02/16 21:31 05/03/16 21:30 Allergies Allergies Allergies Coded Allergies Type Severity Reaction Last Updated Verified No Known Drug Allergies 01/15/16 No Physical Exam Physical Exam Constitutional: Well developed, well nourished, no acute distress, non-toxic appearance. HENT: Normocephalic, atraumatic, bilateral external ears normal, oropharynx moist, no oral exudates, nose normal. Eyes: PERRLA, EOMI, conjunctiva normal, no discharge. [] Neck: Normal range of motion, no tenderness, supple, no stridor. Cardiovascular:Heart rate regular rhythm, no murmur Lungs & Thorax: Bilateral breath sounds clear to auscultation [] Abdomen: Bowel sounds normal, soft, no tenderness, no masses, no pulsatile masses. Skin: Warm, dry, no erythema, no rash. [] Back: No tenderness, no CVA tenderness. Extremities: No tenderness, no cyanosis, no clubbing, ROM intact, no edema. [] Neurologic: Alert and oriented X 3, normal motor function, normal sensory function, no focal deficits noted. Psychologic: Affect normal, judgement normal, mood normal. Current Patient Data Vital Signs Vital Signs Date Time Temp Pulse Resp B/P Pulse Ox O2 Delivery O2 Flow Rate FiO2 05/02/16 21:00 76 20 109/73 95 Room Air 05/02/16 17:55 97.7 97.7 Lab Values Laboratory Tests Test 05/02/16 17:46 05/02/16 18:08 Urine Collection Type Unknown Urine Color Yellow Urine Clarity Clear Urine pH 5.5 Urine Specific [place] >=1.030 Urine Protein Negativemg/dL (NEG-TRACE) Urine Glucose (UA) 500mg/dL (NEG) Urine Ketones (Stick) Tracemg/dL (NEG) Urine Blood Negative (NEG) Urine Nitrite Negative (NEG) Urine Bilirubin Negative (NEG) Urine Urobilinogen Dipstick 0.2mg/dL (0.2 mg/dL) Urine Leukocyte Esterase Negative (NEG) Urine RBC Occ/HPF (0-2) Urine WBC 1-4/HPF (0-4) Urine Squamous Epithelial Cells Mod/LPF Urine Bacteria Few/HPF (0-FEW) Urine Mucus Mod/LPF White Blood Count 34.8x10^3/uL (4.0-11.0) H Red Blood Count 3.70x10^6/uL (3.50-5.40) Hemoglobin 10.9g/dL (12.0-15.5) L Hematocrit 33.2% (36.0-47.0) L Mean Corpuscular Volume 90fL (79-100) Mean Corpuscular Hemoglobin 29pg (25-35) Mean Corpuscular Hemoglobin Concent 33g/dL (31-37) Red Cell Distribution Width 15.9% (11.5-14.5) H Platelet Count 261x10^3/uL (140-400) Neutrophils (%) (Auto) 99% (31-73) H Lymphocytes (%) (Auto) 1% (24-48) L Monocytes (%) (Auto) 0% (0-9) Eosinophils (%) (Auto) 0% (0-3) Basophils (%) (Auto) 0% (0-3) Neutrophils # (Auto) 34.4x10^3uL (1.8-7.7) H Lymphocytes # (Auto) 0.2x10^3/uL (1.0-4.8) L Monocytes # (Auto) 0.1x10^3/uL (0.0-1.1) Eosinophils # (Auto) 0.0x10^3/uL (0.0-0.7) Basophils # (Auto) 0.1x10^3/uL (0.0-0.2) Segmented Neutrophils % 88% (35-66) H Band Neutrophils % 12% (0-9) H Toxic Vacuolation Slight Platelet Estimate Adequate (ADEQUATE) Anisocytosis Slight Sodium Level 136mmol/L (136-145) Potassium Level 3.7mmol/L (3.5-5.1) Chloride Level 100mmol/L (98-107) Carbon Dioxide Level 22mmol/L (21-32) Anion Gap 14 (6-14) Blood Urea Nitrogen 12mg/dL (7-20) Creatinine 0.8mg/dL (0.6-1.0) Estimated GFR (Cockcroft-Gault) 72.7 Glucose Level 212mg/dL (70-99) H Lactic Acid Level 2.7mmol/L (0.4-2.0) H Calcium Level 8.6mg/dL (8.5-10.1) Total Bilirubin 0.3mg/dL (0.2-1.0) Direct Bilirubin < 0.1mg/dL (0.0-0.2) Aspartate Amino Transferase (AST) 33U/L (15-37) Alanine Aminotransferase (ALT) 31U/L (14-59) Alkaline Phosphatase 110U/L (46-116) Troponin I Quantitative 0.029ng/mL (0.000-0.055) JF-Qfe-L-Type Natriuretic Peptide 654pg/mL (0-124) H Total Protein 6.3g/dL (6.4-8.2) L Albumin 2.7g/dL (3.4-5.0) L Lipase 102U/L (73-393) Laboratory Tests 05/02/16 18:08 Laboratory Tests 05/02/16 18:08 EKG EKG []EKG shows sinus rhythm with regular rate. Normal intervals. Normal axis. ST segments are congruent. Not suggestive of ACS. Reviewed by myself. Radiology/Procedures Radiology/Procedures Chest x-ray shows no acute obvious infiltrate or pneumothorax. [] Course & Med Decision Making Course & Med Decision Making Pertinent Labs and Imaging studies reviewed. (See chart for details) [] 61-year-old female presenting to the emergency department today with generalized myalgias and nausea abdominal pain in the periumbilical region. Vital signs afebrile normal heart rate. Unremarkable. Physical exam unremarkable. EKG normal. IV fluids administered along with pain medications. CBC shows leukocytosis at 34. From what the patient is describing to me it sounds like she recently received Neupogen. Urinalysis shows dehydration without suggestion of infection. Chemistry panel otherwise shows hyperglycemia otherwise unremarkable. Troponin within the reference range of normal. Lactic acid elevated likely secondary to dehydration. IV fluids administered. CT of the abdomen pelvis did not show any acute surgical pathology. The patient was subsequently admitted to our hospital for further evaluation workup and care. Hematology oncology consulted. Dragon Disclaimer Dragon Disclaimer This electronic medical record was generated, in whole or in part, using a voice recognition dictation system. Departure Departure Impression: Primary Impression: Nausea Additional Impressions: Weakness Leukocytosis Disposition: ADMITTED INPATIENT Admitting Physician: Elli Strange Condition: STABLE Referrals: ELLI STRANGE MD (PCP) Problem Qualifiers TAYO MCDANIELS MD May 02, 2016 19:21
[2016-05-02] MEDS ORDERED: IV NORMAL SALINE 500ML BAG 500 ML IV ONE (19:30)
--- NOTE | 2016-05-02 20:18 | RAD ---
Examination: CT abdomen and pelvis without contrast. HISTORY History of lower abdominal pain. COMPARISON 12/24/2015. TECHNIQUE Axial CT images of the knees were performed contrast. Coronal sagittal reformats were performed. Exposure: One or more of the following dose reduction technique were utilized for this examination: 1. Automated exposure control. 2.Adjustment of MA and /or KV according to patient size. 3. Use of iterative reconstruction technique. Findings: Mild bibasilar lung airspace opacity likely atelectasis or infiltrates. No evidence of free air identified in the abdomen. The evaluation of the solid organs is limited lack of IV contrast. The evaluation of the bowel is limited lack of oral contrast. The visualized non contrasted liver, spleen, adrenal grossly appears unremarkable. The gallbladder is mildly distended. The stomach is mildly distended. The visualized pancreas grossly appears unremarkable. There is mild inflammatory fat stranding identified in the left mid abdomen with few fluid distended/dilated small bowel loops measuring up to 3 centimeters. The visualized appendix grossly appears unremarkable. Feces and gas noted in the colon. Urinary bladder is mildly distended. The visualized uterus grossly appears unremarkable. No evidence of intrarenal collecting system calculi identified. No evidence of lytic bony destructive lesion. IMPRESSION 1. Mild inflammatory fat stranding in the left mid abdomen with few fluid distended/mild dilated small bowel loops in the left mid abdomen, question enteritis. 2. Mild bibasilar lung airspace opacity likely atelectasis or infiltrates. Electronically signed by: Aydin Daniels (May 02, 2016 19:52:15)
[2016-05-02] MEDS: IV NORMAL SALINE 1000ML BAG 1,000 ML IV SCH (21:31)
[2016-05-02] MEDS ORDERED: ONDANSETRON PF 4 MG/2 ML VIAL. IV PRN (21:45)
[2016-05-02 23:00] VITALS: BP 113/62
[2016-05-02 23:35] VITALS: BP 102/59
[2016-05-03] MEDS: MORPHINE SULFATE 2 MG/ML DISP.SYRIN. IV PRN ×3 (00:07→12:51)
[2016-05-03 03:00] VITALS: BP 104/63
[2016-05-03 05:26] LABS: BASO # 0.1 x10^3/uL (0.0-0.2); BASO % 0 % (0-3); EOS % 0 % (0-3); HEMATOCRIT 29.2 % (36.0-47.0); HEMOGLOBIN 9.6 g/dL (12.0-15.5); LYMPH # 0.4 x10^3/uL (1.0-4.8); LYMPH % 1 % (24-48); MEAN CORPUSCULAR HEMOGLOBIN 30 pg (25-35); MEAN CORPUSCULAR HGB CONC 33 g/dL (31-37); MEAN CORPUSCULAR VOLUME 89 fL (79-100); MONO % 1 % (0-9); NEUT % 98 % (31-73); PLATELET COUNT 252 x10^3/uL (140-400); RED BLOOD COUNT 3.26 x10^6/uL (3.50-5.40); RED CELL DISTRIBUTION WIDTH 16.1 % (11.5-14.5); WHITE BLOOD COUNT 32.4 x10^3/uL (4.0-11.0)
[2016-05-03 06:08] LABS: CALCIUM 8.2 mg/dL (8.5-10.1); CREATININE 0.6 mg/dL (0.6-1.0); GFR 101.3; POTASSIUM 3.9 mmol/L (3.5-5.1)
[2016-05-03 07:00] VITALS: BP 116/66
[2016-05-03] MEDS: IV NORMAL SALINE 1000ML BAG 1,000 ML IV SCH ×3 (09:15→17:26)
--- NOTE | 2016-05-03 09:35 | EKG ---
[facility] [address] [place] [address] Test Date: 2016-05-02 Test Time: 18:18:58 Pat Name: ESTEBAN GIPSON Department: Room: 524 1 Gender: F Senior Database Programmer: : [id number] Requested By: TAYO MCDANIELS Order Number: [id number] Reading MD: Tyson Wild Measurements Intervals [place] Rate: 81 P: 31 MI: 136 QRS: -45 QRSD: 92 T: 23 QT: 388 QTc: 456 Interpretive Statements SINUS RHYTHM ABNORMAL LEFT AXIS DEVIATION LEFT ANTERIOR FASCICULAR BLOCK CONSIDER LEFT VENTRICULAR HYPERTROPHY QRS(T) CONTOUR ABNORMALITY CONSIDER ANTEROSEPTAL MYOCARDIAL DAMAGE RI6.01 Unconfirmed report Electronically Signed On 05-04-2016 14:06:26 C++ PROFESSOR by Tyson Wild
--- NOTE | 2016-05-03 10:13 | RAD ---
Examination: Single frontal view chest. History: History of weakness, Port-A-Cath placement. Comparison: 05/01/2016 Findings: The cardiomediastinal silhouette grossly appears unremarkable. A right-sided Port-A-Cath is unchanged. There is no acute infiltrate or visualized pneumothorax identified. Impression: No acute cardiopulmonary findings.
--- NOTE | 2016-05-03 10:23 | PDOC2 ---
Consultation Consultation Date and Time DATE: 05/03/16 TIME: 10:20 Date of Admission Date of Admission: May 02, 2016 at 22:13 Age Age: 61 History of Present Illness HPI Rhiannon Gleason is a 61 y.o. female who noticed a lump in her left breast in October 2015. She underwent a mammogram on 11/20/2015, which revealed a 2.2 cm mass at the 7 o'clock position of the left breast. She underwent a biopsy on 12/12/2015, which revealed invasive high-grade ductal carcinoma ER negative, DE negative, HER-2/kacie negative, Ki-67 of 70.8 percent. This was followed by left mastectomy and sentinel lymph node biopsy on 12/20/2015, by Dr. Liz George. This revealed invasive high-grade ductal carcinoma, grade 3 measuring 2.4 cm with focal lymphovascular tumor invasion. The 3 lymph nodes were examined and they were all negative. Margins are uninvolved staged as a stage IIA invasive ductal carcinoma. Initiated adjuvant chemotherapy with AC on . She had influenza A after C2 AC, Admitted to [facility] 03/18/16 to 03/22/16. Treated with tamiflu and recovered well. Cycle #4 AC 04/16/16. Then rec'd first dose of taxol on 04/30/16 - which meant she had steroids the day before, and neulasta the day after. She had called on Wednesday evening, not feeling well, so it was recommended for her to take another dose of steroids to see if that would help her energy level. We were asked to see her today due to elevated white blood cell count. Vitals Vital Signs Vital Signs Date Time Temp Pulse Resp B/P Pulse Ox O2 Delivery O2 Flow Rate FiO2 05/03/16 09:10 20 Room Air 05/03/16 07:00 97.7 84 116/66 95 97.7 Past Medical History Cardiovascular: Hyperlipidemia Heme/Onc: Cancer Musculoskeletal: Other Past Surgical History Past Surgical History: Mastectomy Family History Family History: Cancer Social History Smoke: <1 pack per day ALCOHOL: none Drugs: None Lives: with Family Medicacation Home Meds Active Scripts Saliva Stimulant Comb. No.5 (Salivasure)1 Each Lozenge1 Each MM DAILY #10 LOZENGE Prov:SHIRIN HOWE DO 05/01/16 Sennosides/Docusate Sodium (Senna Plus Tablet)1 Each Tablet1 Each PO BID #60 CAP Prov:MICHAEL DONALDSON INTEGRATIVE MEDICINE PHYSICIAN 12/21/15 Reported Medications Acetaminophen (Tylenol)325 Mg Tablet1-2 Tab PO QID #60 TAB Ref 2 01/15/16 Allergies Allergies: Coded Allergies: No Known Drug Allergies (Unverified , 01/15/16) Radiology X-Ray CXR showed nothing acute CT - Scan CT abdomen and pelvis showed signs of enteritis potentially Laboratory Lab Results Laboratory Tests Test 05/02/16 17:46 05/02/16 18:08 05/03/16 04:30 Urine Collection Type Unknown Urine Color Yellow Urine Clarity Clear Urine pH 5.5 Urine Specific [place] >=1.030 Urine Protein Negativemg/dL (NEG-TRACE) Urine Glucose (UA) 500mg/dL (NEG) Urine Ketones (Stick) Tracemg/dL (NEG) Urine Blood Negative (NEG) Urine Nitrite Negative (NEG) Urine Bilirubin Negative (NEG) Urine Urobilinogen Dipstick 0.2mg/dL (0.2 mg/dL) Urine Leukocyte Esterase Negative (NEG) Urine RBC Occ/HPF (0-2) Urine WBC 1-4/HPF (0-4) Urine Squamous Epithelial Cells Mod/LPF Urine Bacteria Few/HPF (0-FEW) Urine Mucus Mod/LPF White Blood Count 34.8x10^3/uL (4.0-11.0) 32.4x10^3/uL (4.0-11.0) Red Blood Count 3.70x10^6/uL (3.50-5.40) 3.26x10^6/uL (3.50-5.40) Hemoglobin 10.9g/dL (12.0-15.5) 9.6g/dL (12.0-15.5) Hematocrit 33.2% (36.0-47.0) 29.2% (36.0-47.0) Mean Corpuscular Volume 90fL (79-100) 89fL (79-100) Mean Corpuscular Hemoglobin 29pg (25-35) 30pg (25-35) Mean Corpuscular Hemoglobin Concent 33g/dL (31-37) 33g/dL (31-37) Red Cell Distribution Width 15.9% (11.5-14.5) 16.1% (11.5-14.5) Platelet Count 261x10^3/uL (140-400) 252x10^3/uL (140-400) Neutrophils (%) (Auto) 99% (31-73) 98% (31-73) Lymphocytes (%) (Auto) 1% (24-48) 1% (24-48) Monocytes (%) (Auto) 0% (0-9) 1% (0-9) Eosinophils (%) (Auto) 0% (0-3) 0% (0-3) Basophils (%) (Auto) 0% (0-3) 0% (0-3) Neutrophils # (Auto) 34.4x10^3uL (1.8-7.7) 31.8x10^3uL (1.8-7.7) Lymphocytes # (Auto) 0.2x10^3/uL (1.0-4.8) 0.4x10^3/uL (1.0-4.8) Monocytes # (Auto) 0.1x10^3/uL (0.0-1.1) 0.2x10^3/uL (0.0-1.1) Eosinophils # (Auto) 0.0x10^3/uL (0.0-0.7) 0.0x10^3/uL (0.0-0.7) Basophils # (Auto) 0.1x10^3/uL (0.0-0.2) 0.1x10^3/uL (0.0-0.2) Segmented Neutrophils % 88% (35-66) Band Neutrophils % 12% (0-9) Toxic Vacuolation Slight Platelet Estimate Adequate (ADEQUATE) Anisocytosis Slight Sodium Level 136mmol/L (136-145) 141mmol/L (136-145) Potassium Level 3.7mmol/L (3.5-5.1) 3.9mmol/L (3.5-5.1) Chloride Level 100mmol/L (98-107) 106mmol/L (98-107) Carbon Dioxide Level 22mmol/L (21-32) 24mmol/L (21-32) Anion Gap 14 (6-14) 11 (6-14) Blood Urea Nitrogen 12mg/dL (7-20) 12mg/dL (7-20) Creatinine 0.8mg/dL (0.6-1.0) 0.6mg/dL (0.6-1.0) Estimated GFR (Cockcroft-Gault) 72.7 101.3 Glucose Level 212mg/dL (70-99) 95mg/dL (70-99) Lactic Acid Level 2.7mmol/L (0.4-2.0) Calcium Level 8.6mg/dL (8.5-10.1) 8.2mg/dL (8.5-10.1) Total Bilirubin 0.3mg/dL (0.2-1.0) Direct Bilirubin < 0.1mg/dL (0.0-0.2) Aspartate Amino Transf (AST/SGOT) 33U/L (15-37) Alanine Aminotransferase (ALT/SGPT) 31U/L (14-59) Alkaline Phosphatase 110U/L (46-116) Troponin I Quantitative 0.029ng/mL (0.000-0.055) MN-Phm-L-Type Natriuretic Peptide 654pg/mL (0-124) Total Protein 6.3g/dL (6.4-8.2) Albumin 2.7g/dL (3.4-5.0) Lipase 102U/L (73-393) Review of Systems Constitutional: YES Weakness Gastrointestinal: Yes Abdominal Pain, No Constipation, No Diarrhea, No Hematochezia, No Melena, No Nausea, No Other , No Vomiting Physical Exams General Appearance: no apparent distress Head: normal inspection, other (alopecia from chemo) Neck Exam: normal inspection Respiratory: normal inspection, normal breath sounds Cardiovascular/Chest: normal inspection, regular rate, rhythm Abdominal Exam: normal inspection, tenderness (suprapubic area (off to the right) - mild) Neuro/Tendon: normal sensation, normal motor functions [employer]ER Exam: normal hearing, normal speech Mental Status: alert, oriented, other (anxious) Appearance: appropriate appearance Eye contact: cooperative, good eye contact Thoughts: normal thought pattern Assessment Comments 61 yo F c Invasive ductal carcinoma of the left breast lower inner quadrant diagnosed on 12/12/2015 status post left mastectomy and sentinel lymph node biopsy on 12/20/2015. This is a grade 3 triple negative tumor measuring 2.4 cm and hence it is staged as a T2N0M0 stage IIA breast cancer. She is on adjuvant chemotherapy with Adriamycin and Cytoxan followed by Taxol, which she just had her first dose of taxol on 04/30/16 with steroid pre-meds on 04/29 and neulasta on . We were asked to see her for her elevated wbc count, which is explained by the steroids and potentially some from the neulasta and dehydration too. No further work-up needed from our end. If she continues to feel better, recommend trying to get her home by tomorrow after one more day of IV fluids. LAZARUS HUTTON MD May 03, 2016 10:23
[2016-05-03 10:59] VITALS: BP 117/60
--- NOTE | 2016-05-03 12:45 | PDOC ---
Provider Note Provider Note Pt seen.H&P dictated. #[id number] SHITAL LEE MD May 03, 2016 12:44
[2016-05-03] MEDS: NYSTATIN 100,000 UNITS/ML 5 ML ORAL.SUSP. SWSW SCH ×3 (13:00→20:12)
[2016-05-03] MEDS: ACETAMINOPHEN 325 MG TABLET. PO SCH ×3 (13:00→20:13)
--- NOTE | 2016-05-03 13:22 | PDOC2 ---
CONSULT Date of Consult Date of Consult DATE: 05/03/16 TIME: 13:00 Reason for Consult Reason for Consult: Leukocytosis/abnormal CT Referring Physician Referring Physician: Dr. Diaz Source Source: Chart review, Patient History of Present Illness Reason for Visit: 61 y/o female with history of left breast cancer, receiving adjuvant chemoRx. Wednesday developed non-specific myalgias and chills and generally felt unwell. Instructed by oncologist to present to ER; was subsequently admitted. Leukocytosis noted, but had received Neulasta and corticosteroids a couple days before. Only complaints currently otherwise are of a "crampy" suprapubic pain which is worse when she ambulates and better when she rests. She denies true abdominal pain, nausea, vomiting, diarrhea or constipation. Eating or bowel function has no effect on the discomfort. She denies dysuria. CT of abdomen and pelvis was performed and read as showing "mild stranding" near some upper small bowel loops. She is able to eat without difficulty here and denies mouth lesions. In general she is free of heartburn or dysphagia. She denies PUD, GB, liver or pancreatic history. She does smoke. She avoids alcohol. She takes no ASA or NSAID-containing products. Bowel function is generally normal. She has had no overt hematochezia nor melena. She has lost some weight and appetite has been variable during treatment for her breast cancer. GI family history is negative. She has not had any prior endoscopies. She was admitted here in March with leukopenia and Influenza. Past Medical History Cardiovascular: Hyperlipidemia Heme/Onc: Cancer (left breast, receiving adjuvant ChemoRx.) Musculoskeletal: Other (CTS) Past Surgical History Past Surgical History: Mastectomy (left, with axillary LN sampling), Other ( portacath insertion) Family History Family History: Cancer (breast/mother), Coronary Artery Disease, Diabetes Social History <1 pack per day ALCOHOL: none Drugs: None Lives: with Family Current Problem List Problem List Problems Medical Problems: (1) Leukocytosis Status: Acute (2) Nausea Status: Acute (3) Weakness Status: Acute Current Medications Current Medications Current Medications Sodium Chloride (Iv Sodium Chloride 0.9% 500ml Bag) 500 ml @ 500 mls/hr 1X ONCE IV Last administered on 05/02/16t 19:05; Start 05/02/16 at 19:30; Stop at 20:29; Status DC Fentanyl Citrate (Fentanyl 2ml Vial) 25 mcg PRN Q30MIN PRN IV SEVERE PAIN Last administered on 05/02/16 19:04; Start 05/02/16 at 19:00 Ondansetron HCl (Zofran) 4 mg PRN Q8HRS PRN IV NAUSEA/VOMITING; Start 05/02/16 at 21:45; Stop 05/03/16 at 21:44 Morphine Sulfate 2 mg 2 mg PRN Q2HR PRN IV SEVERE PAIN Last administered on 05/03 12:51; Start 05/02/16 at 21:45; Stop 05/03/16 at 21:44 Sodium Chloride (Iv Sodium Chloride 0.9% 1000ml Bag) 1,000 ml @ 125 mls/hr Q8H IV Last administered on 05/03/16 09:15; Start 05/02/16 at 21:31; Stop 05/03/16 at 21:30 Acetaminophen (Tylenol) 325 mg QID PO ; Start 05/03/16 at 13:00 Saliva Substitute (Biotene Moisturizing Mouth) 1 spray DAILY PO ; Start 05/04/16 at 09:00 Nystatin 5 ml 5 ml [id number] ; Start 05/03/16 at 13:00 Sodium Chloride (Iv Sodium Chloride 0.9% 1000ml Bag) 1,000 ml @ 75 mls/hr [id number] IV ; Start 05/03/16 at 12:45 Enoxaparin Sodium (Lovenox 40mg Syringe) 40 mg Q24H SQ ; Start 05/03/16 at 14:00 Active Scripts Active Salivasure (Saliva Stimulant Comb. No.5) 1 Each Lozenge 1 Each MM DAILY Senna Plus Tablet (Sennosides/Docusate Sodium) 1 Each Tablet 1 Each PO BID Reported Tylenol (Acetaminophen) 325 Mg Tablet 1-2 Tab PO QID Allergies Allergies: Coded Allergies: No Known Drug Allergies (Unverified , 01/15/16) ROS Review of System 10-point review was otherwise negative except as above. Physical Exam General: Alert, Oriented X3, Cooperative, No acute distress Lungs: Clear to auscultation, Other (portacach right infraclavicular area) Heart: Regular rate, Normal S1, Normal S2, No murmurs Abdomen: Normal bowel sounds, Soft, No hepatosplenomegaly, No masses, Other ( some suprapubic tenderness associated with inferior rectus muscle) Extremities: No cyanosis, No edema Skin: No significant lesion Neuro: Normal speech, Strength at 5/5 X4 ext, Normal tone, Sensation intact, Cranial nerves 3-12 NL, Reflexes 2+ Psych/Mental Status: Mental status NL, Mood NL MUSCULOSKELETAL: No deformity, No swelling Vitals VITALS Vital Signs Date Time Temp Pulse Resp B/P Pulse Ox O2 Delivery O2 Flow Rate FiO2 05/03/16 12:51 18 94 Room Air 05/03/16 10:59 97.7 98 117/60 97.7 Labs Labs Laboratory Tests Test 05/02/16 17:46 05/02/16 18:08 05/03/16 04:30 Urine Collection Type Unknown Urine Color Yellow Urine Clarity Clear Urine pH 5.5 Urine Specific [place] >=1.030 Urine Protein Negativemg/dL (NEG-TRACE) Urine Glucose (UA) 500mg/dL (NEG) Urine Ketones (Stick) Tracemg/dL (NEG) Urine Blood Negative (NEG) Urine Nitrite Negative (NEG) Urine Bilirubin Negative (NEG) Urine Urobilinogen Dipstick 0.2mg/dL (0.2 mg/dL) Urine Leukocyte Esterase Negative (NEG) Urine RBC Occ/HPF (0-2) Urine WBC 1-4/HPF (0-4) Urine Squamous Epithelial Cells Mod/LPF Urine Bacteria Few/HPF (0-FEW) Urine Mucus Mod/LPF White Blood Count 34.8x10^3/uL (4.0-11.0) 32.4x10^3/uL (4.0-11.0) Red Blood Count 3.70x10^6/uL (3.50-5.40) 3.26x10^6/uL (3.50-5.40) Hemoglobin 10.9g/dL (12.0-15.5) 9.6g/dL (12.0-15.5) Hematocrit 33.2% (36.0-47.0) 29.2% (36.0-47.0) Mean Corpuscular Volume 90fL (79-100) 89fL (79-100) Mean Corpuscular Hemoglobin 29pg (25-35) 30pg (25-35) Mean Corpuscular Hemoglobin Concent 33g/dL (31-37) 33g/dL (31-37) Red Cell Distribution Width 15.9% (11.5-14.5) 16.1% (11.5-14.5) Platelet Count 261x10^3/uL (140-400) 252x10^3/uL (140-400) Neutrophils (%) (Auto) 99% (31-73) 98% (31-73) Lymphocytes (%) (Auto) 1% (24-48) 1% (24-48) Monocytes (%) (Auto) 0% (0-9) 1% (0-9) Eosinophils (%) (Auto) 0% (0-3) 0% (0-3) Basophils (%) (Auto) 0% (0-3) 0% (0-3) Neutrophils # (Auto) 34.4x10^3uL (1.8-7.7) 31.8x10^3uL (1.8-7.7) Lymphocytes # (Auto) 0.2x10^3/uL (1.0-4.8) 0.4x10^3/uL (1.0-4.8) Monocytes # (Auto) 0.1x10^3/uL (0.0-1.1) 0.2x10^3/uL (0.0-1.1) Eosinophils # (Auto) 0.0x10^3/uL (0.0-0.7) 0.0x10^3/uL (0.0-0.7) Basophils # (Auto) 0.1x10^3/uL (0.0-0.2) 0.1x10^3/uL (0.0-0.2) Segmented Neutrophils % 88% (35-66) Band Neutrophils % 12% (0-9) Toxic Vacuolation Slight Platelet Estimate Adequate (ADEQUATE) Anisocytosis Slight Sodium Level 136mmol/L (136-145) 141mmol/L (136-145) Potassium Level 3.7mmol/L (3.5-5.1) 3.9mmol/L (3.5-5.1) Chloride Level 100mmol/L (98-107) 106mmol/L (98-107) Carbon Dioxide Level 22mmol/L (21-32) 24mmol/L (21-32) Anion Gap 14 (6-14) 11 (6-14) Blood Urea Nitrogen 12mg/dL (7-20) 12mg/dL (7-20) Creatinine 0.8mg/dL (0.6-1.0) 0.6mg/dL (0.6-1.0) Estimated GFR (Cockcroft-Gault) 72.7 101.3 Glucose Level 212mg/dL (70-99) 95mg/dL (70-99) Lactic Acid Level 2.7mmol/L (0.4-2.0) Calcium Level 8.6mg/dL (8.5-10.1) 8.2mg/dL (8.5-10.1) Total Bilirubin 0.3mg/dL (0.2-1.0) Direct Bilirubin < 0.1mg/dL (0.0-0.2) Aspartate Amino Transf (AST/SGOT) 33U/L (15-37) Alanine Aminotransferase (ALT/SGPT) 31U/L (14-59) Alkaline Phosphatase 110U/L (46-116) Troponin I Quantitative 0.029ng/mL (0.000-0.055) DO-Lpc-M-Type Natriuretic Peptide 654pg/mL (0-124) Total Protein 6.3g/dL (6.4-8.2) Albumin 2.7g/dL (3.4-5.0) Lipase 102U/L (73-393) Laboratory Tests Test 05/02/16 17:46 05/02/16 18:08 05/03/16 04:30 Urine Collection Type Unknown Urine Color Yellow Urine Clarity Clear Urine pH 5.5 Urine Specific [place] >=1.030 Urine Protein Negativemg/dL (NEG-TRACE) Urine Glucose (UA) 500mg/dL (NEG) Urine Ketones (Stick) Tracemg/dL (NEG) Urine Blood Negative (NEG) Urine Nitrite Negative (NEG) Urine Bilirubin Negative (NEG) Urine Urobilinogen Dipstick 0.2mg/dL (0.2 mg/dL) Urine Leukocyte Esterase Negative (NEG) Urine RBC Occ/HPF (0-2) Urine WBC 1-4/HPF (0-4) Urine Squamous Epithelial Cells Mod/LPF Urine Bacteria Few/HPF (0-FEW) Urine Mucus Mod/LPF White Blood Count 34.8x10^3/uL (4.0-11.0) 32.4x10^3/uL (4.0-11.0) Red Blood Count 3.70x10^6/uL (3.50-5.40) 3.26x10^6/uL (3.50-5.40) Hemoglobin 10.9g/dL (12.0-15.5) 9.6g/dL (12.0-15.5) Hematocrit 33.2% (36.0-47.0) 29.2% (36.0-47.0) Mean Corpuscular Volume 90fL (79-100) 89fL (79-100) Mean Corpuscular Hemoglobin 29pg (25-35) 30pg (25-35) Mean Corpuscular Hemoglobin Concent 33g/dL (31-37) 33g/dL (31-37) Red Cell Distribution Width 15.9% (11.5-14.5) 16.1% (11.5-14.5) Platelet Count 261x10^3/uL (140-400) 252x10^3/uL (140-400) Neutrophils (%) (Auto) 99% (31-73) 98% (31-73) Lymphocytes (%) (Auto) 1% (24-48) 1% (24-48) Monocytes (%) (Auto) 0% (0-9) 1% (0-9) Eosinophils (%) (Auto) 0% (0-3) 0% (0-3) Basophils (%) (Auto) 0% (0-3) 0% (0-3) Neutrophils # (Auto) 34.4x10^3uL (1.8-7.7) 31.8x10^3uL (1.8-7.7) Lymphocytes # (Auto) 0.2x10^3/uL (1.0-4.8) 0.4x10^3/uL (1.0-4.8) Monocytes # (Auto) 0.1x10^3/uL (0.0-1.1) 0.2x10^3/uL (0.0-1.1) Eosinophils # (Auto) 0.0x10^3/uL (0.0-0.7) 0.0x10^3/uL (0.0-0.7) Basophils # (Auto) 0.1x10^3/uL (0.0-0.2) 0.1x10^3/uL (0.0-0.2) Segmented Neutrophils % 88% (35-66) Band Neutrophils % 12% (0-9) Toxic Vacuolation Slight Platelet Estimate Adequate (ADEQUATE) Anisocytosis Slight Sodium Level 136mmol/L (136-145) 141mmol/L (136-145) Potassium Level 3.7mmol/L (3.5-5.1) 3.9mmol/L (3.5-5.1) Chloride Level 100mmol/L (98-107) 106mmol/L (98-107) Carbon Dioxide Level 22mmol/L (21-32) 24mmol/L (21-32) Anion Gap 14 (6-14) 11 (6-14) Blood Urea Nitrogen 12mg/dL (7-20) 12mg/dL (7-20) Creatinine 0.8mg/dL (0.6-1.0) 0.6mg/dL (0.6-1.0) Estimated GFR (Cockcroft-Gault) 72.7 101.3 Glucose Level 212mg/dL (70-99) 95mg/dL (70-99) Lactic Acid Level 2.7mmol/L (0.4-2.0) Calcium Level 8.6mg/dL (8.5-10.1) 8.2mg/dL (8.5-10.1) Total Bilirubin 0.3mg/dL (0.2-1.0) Direct Bilirubin < 0.1mg/dL (0.0-0.2) Aspartate Amino Transf (AST/SGOT) 33U/L (15-37) Alanine Aminotransferase (ALT/SGPT) 31U/L (14-59) Alkaline Phosphatase 110U/L (46-116) Troponin I Quantitative 0.029ng/mL (0.000-0.055) EV-Sjb-T-Type Natriuretic Peptide 654pg/mL (0-124) Total Protein 6.3g/dL (6.4-8.2) Albumin 2.7g/dL (3.4-5.0) Lipase 102U/L (73-393) Impressive leukocytosis, otherwise not too remarkable. Images Images On CT: IMPRESSION 1. Mild inflammatory fat stranding in the left mid abdomen with few fluid distended/mild dilated small bowel loops in the left mid abdomen, question enteritis. 2. Mild bibasilar lung airspace opacity likely atelectasis or infiltrates. I reviewed this study with in-house radiologist and we were not terribly impressed. Assessment/Plan Assessment/Plan IMP: 1. "Abdominal pain"--this seems largely musculoskeletal. 2. Abnormal CT--not really impressive and no symptoms that would be caused by a problem in this location. 3. Breast cancer, on adjuvant chemo. 4. Leukocytosis--I would tend to agree with Oncology this most likely reflects the "marrow stimulator" and steroid combination. See no obvious infection ongoing, though symptoms on Wednesday would be c/w a viral prodrome. REC: 1. Would observe only with general support and not begin antibiotics unless clear signs of infection. 2. Follow abnormal labs. --other recommendations pending hospital course. Thank you for allowing me to assist in the care of this patient. Please call if questions. ELBA VELEZ MD May 03, 2016 13:22
--- NOTE | 2016-05-03 13:53 | HP ---
ADMIT DATE: 05/03/2016 ATTENDING PHYSICIAN: Dr. Javon Haley. DATE OF ADMISSION: 05/02/2016. REASON FOR ADMISSION TO THE HOSPITAL: Abdominal pain, lactic acidosis, possible ileus. HISTORY OF PRESENT ILLNESS: The patient is a 61-year-old female. The patient has history of breast cancer diagnosed in October 2015, had a ductal carcinoma of the left breast and patient had left mastectomy, lymph node biopsy in November 2015, and she is getting chemotherapy, last chemotherapy was on April 30 with Taxol, cycle #4. She was having diarrhea last couple of days and came to the Emergency Room, white count was elevated to 32,[address] of the abdomen that shows some ileus, nonspecific enteritis. The patient also had lactic acidosis of 2.7, was admitted to the hospital. Oncology was consulted, we will consult GI. PAST MEDICAL HISTORY: History of breast cancer, had a ductal carcinoma left breast, left mastectomy, hyperlipidemia. PAST SURGICAL HISTORY: Mastectomy, left. FAMILY HISTORY: Cancer. SOCIAL HISTORY: Smokes less than 1 pack per day. Denies alcohol or drug abuse. MEDICATIONS AT HOME: Saliva stimulant, senna, Tylenol. ALLERGIES: No known allergies. REVIEW OF SYSTEMS: CARDIAC: No chest pain. LUNGS: No cough or sputum. GASTROINTESTINAL: Has diarrhea, no blood in the stool, and now says she has no diarrhea now. PHYSICAL EXAMINATION: GENERAL: The patient is not in any distress. VITAL SIGNS: Temperature 97, pulse 87, respirations 16, blood pressure 107/58, 96% on room air. HEENT: Head is atraumatic. The patient has alopecia from chemo. Pupils equal. Oral cavity slight redness over the tongue with coating. NECK: Supple. CHEST: Left mastectomy. CARDIOVASCULAR: S1, S2. LUNGS: Clear. ABDOMEN: Soft, nontender. Bowel sounds present. EXTERNAL GENITALIA: No Kee. RECTAL: Deferred. EXTREMITIES: No calf tenderness, no edema, pulses 1+. NEUROLOGIC: Cranial nerves intact. Power 5/5 in all extremities. LABORATORY DATA: Shows a white count of 35,000, came down to 32,000 today; hemoglobin 11; platelets 261. Electrolytes show sodium 136, potassium 3.7, chloride 100, bicarbonate 22, BUN 12, creatinine 0.8, lactic acid 2.7. LFTs were normal and UA is negative for nitrite or esterase, 1-4 wbc, and had a chest x-ray negative. CT of the abdomen and pelvis shows FINAL IMPRESSION: Mild inflammatory stranding in the left mid abdomen, few air fluid levels with the small bowel loop, questionable enteritis, and she has mild basilar lung airspace opacity, possible atelectasis FINAL IMPRESSION: 1. Abdominal pain with discomfort, possible nonspecific enteritis. 2. Leukocytosis, probably related to chemo, got prednisone along with chemo a couple of days ago. 3. Breast CA, left mastectomy. 4. Hyperlipidemia. 5. Lactic acidosis. PLAN: At this time, hydrate with IV fluids. Regular stool culture, stool for C. diff. We will have a GI consult and see how the patient's condition responds. Check lactic acid in the next 24 hours. SHITAL LEE MD DR: RADHA/sanya JOB#: [id number] / [id number]
[2016-05-03 14:38] VITALS: BP 118/64
[2016-05-03] MEDS: ENOXAPARIN 40 MG/0.4 ML SYRINGE. SQ SCH (17:25)
[2016-05-03 19:57] VITALS: BP 121/65
[2016-05-03 23:17] VITALS: BP 110/65
[2016-05-04] MEDS: IV NORMAL SALINE 1000ML BAG 1,000 ML IV SCH ×2 (02:05→16:43)
[2016-05-04 03:18] VITALS: BP 110/66
[2016-05-04 06:45] LABS: BASO # 0.1 x10^3/uL (0.0-0.2); BASO % 0 % (0-3); EOS % 0 % (0-3); HEMATOCRIT 30.4 % (36.0-47.0); HEMOGLOBIN 10.5 g/dL (12.0-15.5); LYMPH # 0.6 x10^3/uL (1.0-4.8); LYMPH % 3 % (24-48); MEAN CORPUSCULAR HEMOGLOBIN 30 pg (25-35); MEAN CORPUSCULAR HGB CONC 35 g/dL (31-37); MEAN CORPUSCULAR VOLUME 87 fL (79-100); MONO % 1 % (0-9); NEUT % 95 % (31-73); PLATELET COUNT 306 x10^3/uL (140-400); RED BLOOD COUNT 3.48 x10^6/uL (3.50-5.40); RED CELL DISTRIBUTION WIDTH 16.2 % (11.5-14.5)
[2016-05-04 07:00] VITALS: BP 109/62
[2016-05-04 07:11] LABS: CREATININE 0.5 mg/dL (0.6-1.0)
[2016-05-04] MEDS: NYSTATIN 100,000 UNITS/ML 5 ML ORAL.SUSP. SWSW SCH ×4 (08:34→20:21)
[2016-05-04] MEDS: ACETAMINOPHEN 325 MG TABLET. PO SCH ×5 (08:34→20:21)
[2016-05-04] MEDS: SALIVA STIMULANT AGENT 44ML SPRAY BOTTLE. PO SCH (08:34)
--- NOTE | 2016-05-04 09:24 | PDOC ---
PROGRESS NOTES Subjective Subjective c/c - f/u of Invasive ductal carcinoma of the left breast Objective Objective Vital Signs Date Time Temp Pulse Resp B/P Pulse Ox O2 Delivery O2 Flow Rate FiO2 05/04/16 07:00 99.9 57 16 109/62 99 Room Air 99.9 Intake and Output 05/04/16 07:00 Intake Total 3470 ml Balance 3470 ml Intake Oral 2470 ml IV Total 1000 ml # Voids 7 # Bowel Movements 1 Physical Exam Abdomen: No tenderness Heart: Normal S1, Normal S2 General: Alert, Oriented X3 Lungs: Clear to auscultation Neuro: Normal speech Psych/Mental Status: Mental status NL Assessment Assessment Problems Medical Problems: (1) Leukocytosis Status: Acute (2) Nausea Status: Acute (3) Weakness Status: Acute 1. Invasive ductal carcinoma of the left breast lower inner quadrant diagnosed on 12/12/2015 status post left mastectomy and sentinel lymph node biopsy on . This is a grade 3 triple negative tumor measuring 2.4 cm and hence it is staged as a T2N0M0 stage IIA breast cancer. She is on adjuvant chemotherapy with Adriamycin and Cytoxan followed by Taxol, which she just had her first dose of taxol on 04/30/16 with steroid pre-meds on 04/29 and neulasta on 05/01/16. I will continue to monitor. f/u next week for chemo. I will change to weekly dosing to decrease the side effects. 2. Leukocytosis due to neulasta. Monitor cbc 3. Dehydration 4. Bone pains due to neulasta. Continue tylenol. Comment Review of Relevant I have reviewed the following items donny (where applicable) has been applied. Labs Laboratory Tests Test 05/02/16 17:46 05/02/16 18:08 05/03/16 04:30 05/03/16 13:05 Urine Collection Type Unknown Urine Color Yellow Urine Clarity Clear Urine pH 5.5 Urine Specific [place] >=1.030 Urine Protein Negativemg/dL (NEG-TRACE) Urine Glucose (UA) 500mg/dL (NEG) Urine Ketones (Stick) Tracemg/dL (NEG) Urine Blood Negative (NEG) Urine Nitrite Negative (NEG) Urine Bilirubin Negative (NEG) Urine Urobilinogen Dipstick 0.2mg/dL (0.2 mg/dL) Urine Leukocyte Esterase Negative (NEG) Urine RBC Occ/HPF (0-2) Urine WBC 1-4/HPF (0-4) Urine Squamous Epithelial Cells Mod/LPF Urine Bacteria Few/HPF (0-FEW) Urine Mucus Mod/LPF White Blood Count 34.8x10^3/uL (4.0-11.0) 32.4x10^3/uL (4.0-11.0) Red Blood Count 3.70x10^6/uL (3.50-5.40) 3.26x10^6/uL (3.50-5.40) Hemoglobin 10.9g/dL (12.0-15.5) 9.6g/dL (12.0-15.5) Hematocrit 33.2% (36.0-47.0) 29.2% (36.0-47.0) Mean Corpuscular Volume 90fL (79-100) 89fL (79-100) Mean Corpuscular Hemoglobin 29pg (25-35) 30pg (25-35) Mean Corpuscular Hemoglobin Concent 33g/dL (31-37) 33g/dL (31-37) Red Cell Distribution Width 15.9% (11.5-14.5) 16.1% (11.5-14.5) Platelet Count 261x10^3/uL (140-400) 252x10^3/uL (140-400) Neutrophils (%) (Auto) 99% (31-73) 98% (31-73) Lymphocytes (%) (Auto) 1% (24-48) 1% (24-48) Monocytes (%) (Auto) 0% (0-9) 1% (0-9) Eosinophils (%) (Auto) 0% (0-3) 0% (0-3) Basophils (%) (Auto) 0% (0-3) 0% (0-3) Neutrophils # (Auto) 34.4x10^3uL (1.8-7.7) 31.8x10^3uL (1.8-7.7) Lymphocytes # (Auto) 0.2x10^3/uL (1.0-4.8) 0.4x10^3/uL (1.0-4.8) Monocytes # (Auto) 0.1x10^3/uL (0.0-1.1) 0.2x10^3/uL (0.0-1.1) Eosinophils # (Auto) 0.0x10^3/uL (0.0-0.7) 0.0x10^3/uL (0.0-0.7) Basophils # (Auto) 0.1x10^3/uL (0.0-0.2) 0.1x10^3/uL (0.0-0.2) Segmented Neutrophils % 88% (35-66) Band Neutrophils % 12% (0-9) Toxic Vacuolation Slight Platelet Estimate Adequate (ADEQUATE) Anisocytosis Slight Sodium Level 136mmol/L (136-145) 141mmol/L (136-145) Potassium Level 3.7mmol/L (3.5-5.1) 3.9mmol/L (3.5-5.1) Chloride Level 100mmol/L (98-107) 106mmol/L (98-107) Carbon Dioxide Level 22mmol/L (21-32) 24mmol/L (21-32) Anion Gap 14 (6-14) 11 (6-14) Blood Urea Nitrogen 12mg/dL (7-20) 12mg/dL (7-20) Creatinine 0.8mg/dL (0.6-1.0) 0.6mg/dL (0.6-1.0) Estimated GFR (Cockcroft-Gault) 72.7 101.3 Glucose Level 212mg/dL (70-99) 95mg/dL (70-99) Lactic Acid Level 2.7mmol/L (0.4-2.0) 2.0mmol/L (0.4-2.0) Calcium Level 8.6mg/dL (8.5-10.1) 8.2mg/dL (8.5-10.1) Total Bilirubin 0.3mg/dL (0.2-1.0) Direct Bilirubin < 0.1mg/dL (0.0-0.2) Aspartate Amino Transf (AST/SGOT) 33U/L (15-37) Alanine Aminotransferase (ALT/SGPT) 31U/L (14-59) Alkaline Phosphatase 110U/L (46-116) Troponin I Quantitative 0.029ng/mL (0.000-0.055) XL-Saz-M-Type Natriuretic Peptide 654pg/mL (0-124) Total Protein 6.3g/dL (6.4-8.2) Albumin 2.7g/dL (3.4-5.0) Lipase 102U/L (73-393) Test 05/04/16 06:20 White Blood Count 19.0x10^3/uL (4.0-11.0) Red Blood Count 3.48x10^6/uL (3.50-5.40) Hemoglobin 10.5g/dL (12.0-15.5) Hematocrit 30.4% (36.0-47.0) Mean Corpuscular Volume 87fL (79-100) Mean Corpuscular Hemoglobin 30pg (25-35) Mean Corpuscular Hemoglobin Concent 35g/dL (31-37) Red Cell Distribution Width 16.2% (11.5-14.5) Platelet Count 306x10^3/uL (140-400) Neutrophils (%) (Auto) 95% (31-73) Lymphocytes (%) (Auto) 3% (24-48) Monocytes (%) (Auto) 1% (0-9) Eosinophils (%) (Auto) 0% (0-3) Basophils (%) (Auto) 0% (0-3) Neutrophils # (Auto) 18.1x10^3uL (1.8-7.7) Lymphocytes # (Auto) 0.6x10^3/uL (1.0-4.8) Monocytes # (Auto) 0.3x10^3/uL (0.0-1.1) Eosinophils # (Auto) 0.0x10^3/uL (0.0-0.7) Basophils # (Auto) 0.1x10^3/uL (0.0-0.2) Sodium Level 140mmol/L (136-145) Potassium Level 4.0mmol/L (3.5-5.1) Chloride Level 105mmol/L (98-107) Carbon Dioxide Level 25mmol/L (21-32) Anion Gap 10 (6-14) Blood Urea Nitrogen 6mg/dL (7-20) Creatinine 0.5mg/dL (0.6-1.0) Estimated GFR (Cockcroft-Gault) 125.0 Glucose Level 98mg/dL (70-99) Lactic Acid Level 1.0mmol/L (0.4-2.0) Calcium Level 8.0mg/dL (8.5-10.1) Laboratory Tests Test 05/03/16 13:05 05/04/16 06:20 Lactic Acid Level 2.0mmol/L (0.4-2.0) 1.0mmol/L (0.4-2.0) White Blood Count 19.0x10^3/uL (4.0-11.0) Red Blood Count 3.48x10^6/uL (3.50-5.40) Hemoglobin 10.5g/dL (12.0-15.5) Hematocrit 30.4% (36.0-47.0) Mean Corpuscular Volume 87fL (79-100) Mean Corpuscular Hemoglobin 30pg (25-35) Mean Corpuscular Hemoglobin Concent 35g/dL (31-37) Red Cell Distribution Width 16.2% (11.5-14.5) Platelet Count 306x10^3/uL (140-400) Neutrophils (%) (Auto) 95% (31-73) Lymphocytes (%) (Auto) 3% (24-48) Monocytes (%) (Auto) 1% (0-9) Eosinophils (%) (Auto) 0% (0-3) Basophils (%) (Auto) 0% (0-3) Neutrophils # (Auto) 18.1x10^3uL (1.8-7.7) Lymphocytes # (Auto) 0.6x10^3/uL (1.0-4.8) Monocytes # (Auto) 0.3x10^3/uL (0.0-1.1) Eosinophils # (Auto) 0.0x10^3/uL (0.0-0.7) Basophils # (Auto) 0.1x10^3/uL (0.0-0.2) Sodium Level 140mmol/L (136-145) Potassium Level 4.0mmol/L (3.5-5.1) Chloride Level 105mmol/L (98-107) Carbon Dioxide Level 25mmol/L (21-32) Anion Gap 10 (6-14) Blood Urea Nitrogen 6mg/dL (7-20) Creatinine 0.5mg/dL (0.6-1.0) Estimated GFR (Cockcroft-Gault) 125.0 Glucose Level 98mg/dL (70-99) Calcium Level 8.0mg/dL (8.5-10.1) Medications Current Medications Sodium Chloride (Iv Sodium Chloride 0.9% 500ml Bag) 500 ml @ 500 mls/hr 1X ONCE IV Last administered on 05/02/16 19:05; Start 05/02/16 at 19:30; Stop at 20:29; Status DC Fentanyl Citrate (Fentanyl 2ml Vial) 25 mcg PRN Q30MIN PRN IV SEVERE PAIN Last administered on 05/02/16 19:04; Start 05/02/16 at 19:00 Ondansetron HCl (Zofran) 4 mg PRN Q8HRS PRN IV NAUSEA/VOMITING; Start 05/02/16 at 21:45; Stop 05/03/16 at 21:44; Status DC Morphine Sulfate 2 mg 2 mg PRN Q2HR PRN IV SEVERE PAIN Last administered on 05/03 12:51; Start 05/02/16 at 21:45; Stop 05/03/16 at 21:44; Status DC Sodium Chloride (Iv Sodium Chloride 0.9% 1000ml Bag) 1,000 ml @ 125 mls/hr Q8H IV Last administered on 05/03/16 09:15; Start 05/02/16 at 21:31; Stop 05/03/16 at 17:37; Status DC Acetaminophen (Tylenol) 325 mg QID PO Last administered on 05/04/16 08:34; Start 05/03/16 at 13:00 Saliva Substitute (Biotene Moisturizing Mouth) 1 spray DAILY PO Last administered on 05/04/16 08:34; Start 05/04/16 at 09:00 Nystatin 5 ml 5 ml [id number] Last administered on 05/04/16 08:34; Start 05/03 at 13:00 Sodium Chloride (Iv Sodium Chloride 0.9% 1000ml Bag) 1,000 ml @ 75 mls/hr [id number] IV Last administered on 05/04/16 02:05; Start 05/03/16 at 12:45 Enoxaparin Sodium (Lovenox 40mg Syringe) 40 mg Q24H SQ Last administered on 05/03t 17:25; Start 05/03/16 at 14:00 Active Scripts Active Salivasure (Saliva Stimulant Comb. No.5) 1 Each Lozenge 1 Each MM DAILY Senna Plus Tablet (Sennosides/Docusate Sodium) 1 Each Tablet 1 Each PO BID Reported Tylenol (Acetaminophen) 325 Mg Tablet 1-2 Tab PO QID Vitals/I & O Vital Sign - Last 24 Hours 05/03/16 05/03/16 05/03/16 05/03/16 09:40 10:59 12:51 14:38 Temp 97.7 97.7 97.7 97.7 Pulse 98 89 Resp 20 18 18 18 B/P 117/60 118/64 Pulse Ox 95 94 94 95 O2 Delivery Room Air Room Air Room Air Room Air 05/03/16 05/03/16 05/03/16 05/04/16 19:26 19:57 23:17 03:18 Temp 99.7 98.4 97.0 99.7 98.4 97.0 Pulse 102 89 99 Resp 18 20 20 B/P 121/65 110/65 110/66 Pulse Ox 93 96 99 O2 Delivery Room Air Room Air Room Air 05/04/16 07:00 Temp 99.9 99.9 Pulse 57 Resp 16 B/P 109/62 Pulse Ox 99 O2 Delivery Room Air Intake and Output 05/03/16 05/03/16 05/04/16 15:00 23:00 07:00 Intake Total 880 ml 2090 ml 500 ml Balance 880 ml 2090 ml 500 ml PAMELA ZARCO MD May 04, 2016 09:24
--- NOTE | 2016-05-04 09:57 | PDOC ---
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 Stools formed now. Objective Objective mild distress Vitals Vital Signs Date Time Temp Pulse Resp B/P Pulse Ox O2 Delivery O2 Flow Rate FiO2 05/04/16 08:15 Room Air 05/04/16 07:00 99.9 57 16 109/62 99 99.9 Input & Output Intake and Output 05/04/16 07:00 Intake Total 3470 ml Balance 3470 ml Intake Oral 2470 ml IV Total 1000 ml # Voids 7 # Bowel Movements 1 Physical Exam Physical Exam General appearance - alert, ill appearing, and in mild distress Mental Status - alert, oriented to person, place, and time, affect appropriate to mood Head - normal Chest - clear to auscultation, no wheezes, rales or rhonchi, symmetric air entry Heart - S1 and S2 normal Abdomen - soft, +tender LLQ, nondistended,BS+ Neurological - no acute focal neurological deficit noted Musculoskeletal - R scapula pain Extremities - no pedal edema Skin - warm and dry Labs Laboratory Tests Test 05/02/16 17:46 05/02/16 18:08 05/03/16 04:30 05/03/16 13:05 Urine Collection Type Unknown Urine Color Yellow Urine Clarity Clear Urine pH 5.5 Urine Specific [place] >=1.030 Urine Protein Negativemg/dL (NEG-TRACE) Urine Glucose (UA) 500mg/dL (NEG) Urine Ketones (Stick) Tracemg/dL (NEG) Urine Blood Negative (NEG) Urine Nitrite Negative (NEG) Urine Bilirubin Negative (NEG) Urine Urobilinogen Dipstick 0.2mg/dL (0.2 mg/dL) Urine Leukocyte Esterase Negative (NEG) Urine RBC Occ/HPF (0-2) Urine WBC 1-4/HPF (0-4) Urine Squamous Epithelial Cells Mod/LPF Urine Bacteria Few/HPF (0-FEW) Urine Mucus Mod/LPF White Blood Count 34.8x10^3/uL (4.0-11.0) 32.4x10^3/uL (4.0-11.0) Red Blood Count 3.70x10^6/uL (3.50-5.40) 3.26x10^6/uL (3.50-5.40) Hemoglobin 10.9g/dL (12.0-15.5) 9.6g/dL (12.0-15.5) Hematocrit 33.2% (36.0-47.0) 29.2% (36.0-47.0) Mean Corpuscular Volume 90fL (79-100) 89fL (79-100) Mean Corpuscular Hemoglobin 29pg (25-35) 30pg (25-35) Mean Corpuscular Hemoglobin Concent 33g/dL (31-37) 33g/dL (31-37) Red Cell Distribution Width 15.9% (11.5-14.5) 16.1% (11.5-14.5) Platelet Count 261x10^3/uL (140-400) 252x10^3/uL (140-400) Neutrophils (%) (Auto) 99% (31-73) 98% (31-73) Lymphocytes (%) (Auto) 1% (24-48) 1% (24-48) Monocytes (%) (Auto) 0% (0-9) 1% (0-9) Eosinophils (%) (Auto) 0% (0-3) 0% (0-3) Basophils (%) (Auto) 0% (0-3) 0% (0-3) Neutrophils # (Auto) 34.4x10^3uL (1.8-7.7) 31.8x10^3uL (1.8-7.7) Lymphocytes # (Auto) 0.2x10^3/uL (1.0-4.8) 0.4x10^3/uL (1.0-4.8) Monocytes # (Auto) 0.1x10^3/uL (0.0-1.1) 0.2x10^3/uL (0.0-1.1) Eosinophils # (Auto) 0.0x10^3/uL (0.0-0.7) 0.0x10^3/uL (0.0-0.7) Basophils # (Auto) 0.1x10^3/uL (0.0-0.2) 0.1x10^3/uL (0.0-0.2) Segmented Neutrophils % 88% (35-66) Band Neutrophils % 12% (0-9) Toxic Vacuolation Slight Platelet Estimate Adequate (ADEQUATE) Anisocytosis Slight Sodium Level 136mmol/L (136-145) 141mmol/L (136-145) Potassium Level 3.7mmol/L (3.5-5.1) 3.9mmol/L (3.5-5.1) Chloride Level 100mmol/L (98-107) 106mmol/L (98-107) Carbon Dioxide Level 22mmol/L (21-32) 24mmol/L (21-32) Anion Gap 14 (6-14) 11 (6-14) Blood Urea Nitrogen 12mg/dL (7-20) 12mg/dL (7-20) Creatinine 0.8mg/dL (0.6-1.0) 0.6mg/dL (0.6-1.0) Estimated GFR (Cockcroft-Gault) 72.7 101.3 Glucose Level 212mg/dL (70-99) 95mg/dL (70-99) Lactic Acid Level 2.7mmol/L (0.4-2.0) 2.0mmol/L (0.4-2.0) Calcium Level 8.6mg/dL (8.5-10.1) 8.2mg/dL (8.5-10.1) Total Bilirubin 0.3mg/dL (0.2-1.0) Direct Bilirubin < 0.1mg/dL (0.0-0.2) Aspartate Amino Transf (AST/SGOT) 33U/L (15-37) Alanine Aminotransferase (ALT/SGPT) 31U/L (14-59) Alkaline Phosphatase 110U/L (46-116) Troponin I Quantitative 0.029ng/mL (0.000-0.055) WA-Lsp-F-Type Natriuretic Peptide 654pg/mL (0-124) Total Protein 6.3g/dL (6.4-8.2) Albumin 2.7g/dL (3.4-5.0) Lipase 102U/L (73-393) Test 05/04/16 06:20 White Blood Count 19.0x10^3/uL (4.0-11.0) Red Blood Count 3.48x10^6/uL (3.50-5.40) Hemoglobin 10.5g/dL (12.0-15.5) Hematocrit 30.4% (36.0-47.0) Mean Corpuscular Volume 87fL (79-100) Mean Corpuscular Hemoglobin 30pg (25-35) Mean Corpuscular Hemoglobin Concent 35g/dL (31-37) Red Cell Distribution Width 16.2% (11.5-14.5) Platelet Count 306x10^3/uL (140-400) Neutrophils (%) (Auto) 95% (31-73) Lymphocytes (%) (Auto) 3% (24-48) Monocytes (%) (Auto) 1% (0-9) Eosinophils (%) (Auto) 0% (0-3) Basophils (%) (Auto) 0% (0-3) Neutrophils # (Auto) 18.1x10^3uL (1.8-7.7) Lymphocytes # (Auto) 0.6x10^3/uL (1.0-4.8) Monocytes # (Auto) 0.3x10^3/uL (0.0-1.1) Eosinophils # (Auto) 0.0x10^3/uL (0.0-0.7) Basophils # (Auto) 0.1x10^3/uL (0.0-0.2) Sodium Level 140mmol/L (136-145) Potassium Level 4.0mmol/L (3.5-5.1) Chloride Level 105mmol/L (98-107) Carbon Dioxide Level 25mmol/L (21-32) Anion Gap 10 (6-14) Blood Urea Nitrogen 6mg/dL (7-20) Creatinine 0.5mg/dL (0.6-1.0) Estimated GFR (Cockcroft-Gault) 125.0 Glucose Level 98mg/dL (70-99) Lactic Acid Level 1.0mmol/L (0.4-2.0) Calcium Level 8.0mg/dL (8.5-10.1) Laboratory Tests Test 05/03/16 13:05 05/04/16 06:20 Lactic Acid Level 2.0mmol/L (0.4-2.0) 1.0mmol/L (0.4-2.0) White Blood Count 19.0x10^3/uL (4.0-11.0) Red Blood Count 3.48x10^6/uL (3.50-5.40) Hemoglobin 10.5g/dL (12.0-15.5) Hematocrit 30.4% (36.0-47.0) Mean Corpuscular Volume 87fL (79-100) Mean Corpuscular Hemoglobin 30pg (25-35) Mean Corpuscular Hemoglobin Concent 35g/dL (31-37) Red Cell Distribution Width 16.2% (11.5-14.5) Platelet Count 306x10^3/uL (140-400) Neutrophils (%) (Auto) 95% (31-73) Lymphocytes (%) (Auto) 3% (24-48) Monocytes (%) (Auto) 1% (0-9) Eosinophils (%) (Auto) 0% (0-3) Basophils (%) (Auto) 0% (0-3) Neutrophils # (Auto) 18.1x10^3uL (1.8-7.7) Lymphocytes # (Auto) 0.6x10^3/uL (1.0-4.8) Monocytes # (Auto) 0.3x10^3/uL (0.0-1.1) Eosinophils # (Auto) 0.0x10^3/uL (0.0-0.7) Basophils # (Auto) 0.1x10^3/uL (0.0-0.2) Sodium Level 140mmol/L (136-145) Potassium Level 4.0mmol/L (3.5-5.1) Chloride Level 105mmol/L (98-107) Carbon Dioxide Level 25mmol/L (21-32) Anion Gap 10 (6-14) Blood Urea Nitrogen 6mg/dL (7-20) Creatinine 0.5mg/dL (0.6-1.0) Estimated GFR (Cockcroft-Gault) 125.0 Glucose Level 98mg/dL (70-99) Calcium Level 8.0mg/dL (8.5-10.1) Meds Current Medications Acetaminophen (Tylenol) 325 mg QID PO Last administered on 05/04/16t 08:34; Start 05/03/16 at 13:00 Enoxaparin Sodium (Lovenox 40mg Syringe) 40 mg Q24H SQ Last administered on 05/03 17:25; Start 05/03/16 at 14:00 Nystatin 5 ml 5 ml [id number] Last administered on 05/04/16 08:34; Start 05/03 at 13:00 Saliva Substitute (Biotene Moisturizing Mouth) 1 spray DAILY PO Last administered on 05/04/16 08:34; Start 05/04/16 at 09:00 Sodium Chloride (Iv Sodium Chloride 0.9% 1000ml Bag) 1,000 ml @ 75 mls/hr [id number] IV Last administered on 05/04/16 02:05; Start 05/03/16 at 12:45 Assessment Assessment 1. abdominal pain LLQ +enteritis 2. h/o L breast invasive hi grade ductal cancer triple neg [id number] Stage 11A Taxol. cycle #4 3. anemia secondary to chemo/illness 4. moderate PCL malnutrition with no chronic malnutrition 5. leukocytosis r/t marrow stimulator/steroids 6. Fever not POA 7. ARK no JULIO CÉSAR or ATN, secondary to dehydration poor oral intake/diarrhea PLAN: abdominal pain/diarrhea CT: Mild inflammatory fat stranding in the left mid abdomen with few fluid distended/mild dilated small bowel loops in the left mid abdomen, question enteritis. diarrhea resolved resume fentanyl IV for pain GI consulted leukocytosis Admit 34.8 05/04 19.0 recent marrow stimulator and steroid T99.9 05/04 urine negative at admit Abd CT noted mild bibasilar atelectasis or infiltrate 05/04 PA/lat CXR ordered BC x 2 ordered formed stools-Cdif spec not sent/order cancelled 05/04 ID consult Lactic acid Admit 2.7 05/04 1.0 anemia chronic disease ADmit Hgb 10.9 03/06 10.5 monitor ARF dehydration POA Admit BUN 12 05/04 6 Cr 0.8 0.6 K 3.7 4.0 NS 75cc/hr DM steroid induced hyperglycemia monitor, no SSI Gluc 212 oral candidiasis nystatin swish swallow DVT/GI prophylaxis SCD/Rene PPI For further plan of care, please refer to the orders. Plan Plan For more details regarding further plans, please refer to the orders. ELLI STRANGE MD 05/04/16 1008: IM PROGRESS NOTES- Assessment Assessment consult ID D/w . D/w patient. Clinically improving. Denies nausea,diarrhea.Has lower abd pain. The patient was seen and examined by me. Chart reviewed and plan of care formulated. Discussed with, reviewed and agree with BUS GREASER's notes, plan of care and orders with modifications as necessary. For more details regarding further plans, please refer to the orders. GEOFF HUIZAR APRN May 04, 2016 09:49 ELLI STRANGE MD May 04, 2016 10:08
[2016-05-04] MEDS: PANTOPRAZOLE 40 MG TABLET. PO SCH (10:03)
[2016-05-04] MEDS: FENTANYL PF 100 MCG/2 ML VIAL. IV PRN ×3 (10:06→20:22)
--- NOTE | 2016-05-04 10:38 | PDOC ---
Infectious Disease Note Vital Sign Vital Signs Vital Signs Date Time Temp Pulse Resp B/P Pulse Ox O2 Delivery O2 Flow Rate FiO2 05/04/16 10:26 Room Air 05/04/16 07:00 99.9 57 16 109/62 99 99.9 Labs Lab Laboratory Tests Test 05/03/16 13:05 05/04/16 06:20 Lactic Acid Level 2.0mmol/L (0.4-2.0) 1.0mmol/L (0.4-2.0) White Blood Count 19.0x10^3/uL (4.0-11.0) Red Blood Count 3.48x10^6/uL (3.50-5.40) Hemoglobin 10.5g/dL (12.0-15.5) Hematocrit 30.4% (36.0-47.0) Mean Corpuscular Volume 87fL (79-100) Mean Corpuscular Hemoglobin 30pg (25-35) Mean Corpuscular Hemoglobin Concent 35g/dL (31-37) Red Cell Distribution Width 16.2% (11.5-14.5) Platelet Count 306x10^3/uL (140-400) Neutrophils (%) (Auto) 95% (31-73) Lymphocytes (%) (Auto) 3% (24-48) Monocytes (%) (Auto) 1% (0-9) Eosinophils (%) (Auto) 0% (0-3) Basophils (%) (Auto) 0% (0-3) Neutrophils # (Auto) 18.1x10^3uL (1.8-7.7) Lymphocytes # (Auto) 0.6x10^3/uL (1.0-4.8) Monocytes # (Auto) 0.3x10^3/uL (0.0-1.1) Eosinophils # (Auto) 0.0x10^3/uL (0.0-0.7) Basophils # (Auto) 0.1x10^3/uL (0.0-0.2) Sodium Level 140mmol/L (136-145) Potassium Level 4.0mmol/L (3.5-5.1) Chloride Level 105mmol/L (98-107) Carbon Dioxide Level 25mmol/L (21-32) Anion Gap 10 (6-14) Blood Urea Nitrogen 6mg/dL (7-20) Creatinine 0.5mg/dL (0.6-1.0) Estimated GFR (Cockcroft-Gault) 125.0 Glucose Level 98mg/dL (70-99) Calcium Level 8.0mg/dL (8.5-10.1) Objective Assessment Low grade fever Leukocytosis sec to neulasta and steroids Breast ca s/p chemo Abdominal pain , enteritis Plan Plan of Care bc no need for any antibiotics at this stage d/w DAVID Fernandez MD May 04, 2016 10:38
[2016-05-04 11:18] VITALS: BP 99/73
--- NOTE | 2016-05-04 12:54 | PDOC ---
Subjective: Subjective: Has leg pain and lower abd pain. 09/07. Eating and stooling w/o issue. Objective: Vital Signs: Vital Signs Date Time Temp Pulse Resp B/P Pulse Ox O2 Delivery O2 Flow Rate FiO2 05/04/16 11:18 97.9 90 16 99/73 95 Room Air 97.9 Labs: Laboratory Tests Test 05/03/16 13:05 05/04/16 06:20 05/04/16 10:49 Lactic Acid Level 2.0mmol/L 1.0mmol/L White Blood Count 19.0x10^3/uL Red Blood Count 3.48x10^6/uL Hemoglobin 10.5g/dL Hematocrit 30.4% Mean Corpuscular Volume 87fL Mean Corpuscular Hemoglobin 30pg Mean Corpuscular Hemoglobin Concent 35g/dL Red Cell Distribution Width 16.2% Platelet Count 306x10^3/uL Neutrophils (%) (Auto) 95% Lymphocytes (%) (Auto) 3% Monocytes (%) (Auto) 1% Eosinophils (%) (Auto) 0% Basophils (%) (Auto) 0% Neutrophils # (Auto) 18.1x10^3uL Lymphocytes # (Auto) 0.6x10^3/uL Monocytes # (Auto) 0.3x10^3/uL Eosinophils # (Auto) 0.0x10^3/uL Basophils # (Auto) 0.1x10^3/uL Sodium Level 140mmol/L Potassium Level 4.0mmol/L Chloride Level 105mmol/L Carbon Dioxide Level 25mmol/L Anion Gap 10 Blood Urea Nitrogen 6mg/dL Creatinine 0.5mg/dL Estimated GFR (Cockcroft-Gault) 125.0 Glucose Level 98mg/dL Calcium Level 8.0mg/dL Glucose (Fingerstick) 112mg/dL Imaging: CXR pending PE: GEN: NAD LUNGS: clear anteriorly HEART: RRR ABD: NABS, S/ND - only suprapubic discomfort to deep palpation NEURO/PSYCH: A & O 3 A/P: Suprapubic discomfort Abnormal CT -mild inflammatory fat stranding in the left mid abdomen with few fluid distended/mild dilated small bowel loops in the left mid abdomen, question enteritis Breast cancer on chemo Leukocytosis - improved -- Pain does not seem to be related to GI issue. Other per Dr. Mills. INEZ CARTWRIGHT May 04, 2016 12:54
--- NOTE | 2016-05-04 12:55 | RAD ---
EXAM: Chest 2 views. HISTORY: Basilar infiltrates. Weakness, breast cancer. COMPARISON: 05/02/2016. FINDINGS: Frontal and lateral views of the chest are obtained. A right-sided port catheter has its tip in the superior cavoatrial junction. There are surgical clips in the left axilla and changes of left mastectomy. There are no confluent infiltrates. Hyperinflation is consistent with chronic obstructive pulmonary disease. There is no pneumothorax or pleural effusion. The heart is not enlarged. IMPRESSION: 1. Hyperinflation suggests chronic obstructive pulmonary disease. No confluent infiltrates.
[2016-05-04 14:54] VITALS: BP 119/73
[2016-05-04] MEDS: ENOXAPARIN 40 MG/0.4 ML SYRINGE. SQ SCH (15:33)
[2016-05-04 19:00] VITALS: BP 112/71
[2016-05-04 23:00] VITALS: BP 122/65
--- NOTE | 2016-05-05 01:04 | CONS ---
DATE OF CONSULTATION: 05/04/2016 REQUESTING PHYSICIAN: Dr. Javon Haley. REASON FOR CONSULTATION: Low-grade fever. HISTORY OF PRESENT ILLNESS: This is a 61-year-old female with history of breast cancer who is undergoing chemotherapy after surgery. The patient also with the most recent chemotherapy had Neulasta and steroids. The patient came in with abdominal pain, not feeling well and weakness. The patient denies any diarrhea, denies any nausea or vomiting. The patient has pain "all over the body" she says. CT showed some nonspecific enteritis. Stool culture has been pending and blood culture has been pending. The patient is not on any antibiotics. The patient had 99.9 temperature. PAST MEDICAL HISTORY: Positive for ductal carcinoma status post left mastectomy, lymph node dissection and now on chemotherapy. The patient does have a Port-A-Cath in the right upper chest and hyperlipidemia. SOCIAL HISTORY: Positive for smoking, no alcohol use or drug use. ALLERGIES: No known drug allergies. CURRENT MEDICATIONS: Reviewed. The patient is not on any antibiotics. REVIEW OF SYSTEMS: As per HPI, all other systems reviewed and are negative. PHYSICAL EXAMINATION: GENERAL: Alert, oriented female, not in distress. VITAL SIGNS: Stable with a T-max 99.9. HEENT: NAD. NECK: Supple, no JVP, no lymphadenopathy. LUNGS: Clear. HEART: S1, S2 regular. ABDOMEN: Benign. EXTREMITIES: No edema, cyanosis. SKIN: Unremarkable. Port-A-Cath site is unremarkable. NEUROLOGIC: The patient is neurologically intact. LABORATORY DATA: White count is 19,000. BUN and creatinine is normal. Urinalysis unremarkable. Blood culture is pending. Stool culture is pending. IMPRESSION: 1. Low grade fever. 2. Leukocytosis from Neulasta and steroids. 3. Ductal carcinoma of the breast, status post mastectomy and on chemotherapy. RECOMMENDATIONS: Would continue with no antibiotics. Continue to monitor if temperature becomes higher, then we may have to start empiric therapy, supportive care and hopefully discharge soon. Thank you very much, Dr. Haley, for giving me the opportunity to participate in this patient's care. DAVID MORTENSEN MD DR: GIORGI/sanya JOB#: [id number] / [id number]
[2016-05-05 03:00] VITALS: BP 120/74
[2016-05-05] MEDS: FENTANYL PF 100 MCG/2 ML VIAL. IV PRN ×2 (03:43→07:49)
[2016-05-05] MEDS: IV NORMAL SALINE 1000ML BAG 1,000 ML IV SCH (04:02)
[2016-05-05 04:21] LABS: BASO % 0 % (0-3); EOS % 1 % (0-3); HEMATOCRIT 29.9 % (36.0-47.0); HEMOGLOBIN 10.3 g/dL (12.0-15.5); LYMPH # 0.5 x10^3/uL (1.0-4.8); LYMPH % 4 % (24-48); MEAN CORPUSCULAR HEMOGLOBIN 30 pg (25-35); MEAN CORPUSCULAR HGB CONC 34 g/dL (31-37); MEAN CORPUSCULAR VOLUME 87 fL (79-100); MONO % 4 % (0-9); NEUT % 91 % (31-73); PLATELET COUNT 353 x10^3/uL (140-400); RED BLOOD COUNT 3.43 x10^6/uL (3.50-5.40); RED CELL DISTRIBUTION WIDTH 16.6 % (11.5-14.5); WHITE BLOOD COUNT 11.3 x10^3/uL (4.0-11.0)
[2016-05-05 04:47] LABS: ALBUMIN 2.3 g/dL (3.4-5.0); ALBUMIN/GLOBULIN RATIO 0.7 (1.0-1.7); CALCIUM 8.4 mg/dL (8.5-10.1); CREATININE 0.6 mg/dL (0.6-1.0); GFR 101.3; MAGNESIUM 2.1 mg/dL (1.8-2.4); POTASSIUM 3.9 mmol/L (3.5-5.1); TOTAL BILIRUBIN 0.3 mg/dL (0.2-1.0); TOTAL PROTEIN 5.8 g/dL (6.4-8.2)
[2016-05-05 07:06] VITALS: BP 127/69
[2016-05-05] MEDS: PANTOPRAZOLE 40 MG TABLET. PO SCH (07:48)
--- NOTE | 2016-05-05 08:31 | PDOC3 ---
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 abdominal pain LLQ viral gastroenteritis 2. h/o L breast invasive hi grade ductal cancer triple neg T2N0N0 Stage 11A Taxol. cycle #4 3. anemia secondary to chemo/illness 4. moderate PCL malnutrition with no chronic malnutrition 5. leukocytosis r/t marrow stimulator/steroids 6. Fever not POA not sepsis 7. ARK no JULIO CÉSAR or ATN, secondary to dehydration poor oral intake/diarrhea Consults Consults Sriram Vizcaino MD, Dr., Dr. Procedures Procedures None Labs Labs Laboratory Tests Test 05/02/16 17:46 05/02/16 18:08 05/03/16 04:30 05/03/16 13:05 Urine Collection Type Unknown Urine Color Yellow Urine Clarity Clear Urine pH 5.5 Urine Specific [place] >=1.030 Urine Protein Negativemg/dL (NEG-TRACE) Urine Glucose (UA) 500mg/dL (NEG) Urine Ketones (Stick) Tracemg/dL (NEG) Urine Blood Negative (NEG) Urine Nitrite Negative (NEG) Urine Bilirubin Negative (NEG) Urine Urobilinogen Dipstick 0.2mg/dL (0.2 mg/dL) Urine Leukocyte Esterase Negative (NEG) Urine RBC Occ/HPF (0-2) Urine WBC 1-4/HPF (0-4) Urine Squamous Epithelial Cells Mod/LPF Urine Bacteria Few/HPF (0-FEW) Urine Mucus Mod/LPF White Blood Count 34.8x10^3/uL (4.0-11.0) 32.4x10^3/uL (4.0-11.0) Red Blood Count 3.70x10^6/uL (3.50-5.40) 3.26x10^6/uL (3.50-5.40) Hemoglobin 10.9g/dL (12.0-15.5) 9.6g/dL (12.0-15.5) Hematocrit 33.2% (36.0-47.0) 29.2% (36.0-47.0) Mean Corpuscular Volume 90fL (79-100) 89fL (79-100) Mean Corpuscular Hemoglobin 29pg (25-35) 30pg (25-35) Mean Corpuscular Hemoglobin Concent 33g/dL (31-37) 33g/dL (31-37) Red Cell Distribution Width 15.9% (11.5-14.5) 16.1% (11.5-14.5) Platelet Count 261x10^3/uL (140-400) 252x10^3/uL (140-400) Neutrophils (%) (Auto) 99% (31-73) 98% (31-73) Lymphocytes (%) (Auto) 1% (24-48) 1% (24-48) Monocytes (%) (Auto) 0% (0-9) 1% (0-9) Eosinophils (%) (Auto) 0% (0-3) 0% (0-3) Basophils (%) (Auto) 0% (0-3) 0% (0-3) Neutrophils # (Auto) 34.4x10^3uL (1.8-7.7) 31.8x10^3uL (1.8-7.7) Lymphocytes # (Auto) 0.2x10^3/uL (1.0-4.8) 0.4x10^3/uL (1.0-4.8) Monocytes # (Auto) 0.1x10^3/uL (0.0-1.1) 0.2x10^3/uL (0.0-1.1) Eosinophils # (Auto) 0.0x10^3/uL (0.0-0.7) 0.0x10^3/uL (0.0-0.7) Basophils # (Auto) 0.1x10^3/uL (0.0-0.2) 0.1x10^3/uL (0.0-0.2) Segmented Neutrophils % 88% (35-66) Band Neutrophils % 12% (0-9) Toxic Vacuolation Slight Platelet Estimate Adequate (ADEQUATE) Anisocytosis Slight Sodium Level 136mmol/L (136-145) 141mmol/L (136-145) Potassium Level 3.7mmol/L (3.5-5.1) 3.9mmol/L (3.5-5.1) Chloride Level 100mmol/L (98-107) 106mmol/L (98-107) Carbon Dioxide Level 22mmol/L (21-32) 24mmol/L (21-32) Anion Gap 14 (6-14) 11 (6-14) Blood Urea Nitrogen 12mg/dL (7-20) 12mg/dL (7-20) Creatinine 0.8mg/dL (0.6-1.0) 0.6mg/dL (0.6-1.0) Estimated GFR (Cockcroft-Gault) 72.7 101.3 Glucose Level 212mg/dL (70-99) 95mg/dL (70-99) Lactic Acid Level 2.7mmol/L (0.4-2.0) 2.0mmol/L (0.4-2.0) Calcium Level 8.6mg/dL (8.5-10.1) 8.2mg/dL (8.5-10.1) Total Bilirubin 0.3mg/dL (0.2-1.0) Direct Bilirubin < 0.1mg/dL (0.0-0.2) Aspartate Amino Transf (AST/SGOT) 33U/L (15-37) Alanine Aminotransferase (ALT/SGPT) 31U/L (14-59) Alkaline Phosphatase 110U/L (46-116) Troponin I Quantitative 0.029ng/mL (0.000-0.055) TX-Mzt-Z-Type Natriuretic Peptide 654pg/mL (0-124) Total Protein 6.3g/dL (6.4-8.2) Albumin 2.7g/dL (3.4-5.0) Lipase 102U/L (73-393) Test 05/03/16 19:00 05/04/16 06:20 05/04/16 10:49 05/05/16 03:22 Clostridium difficile Toxin (PCR) Negative (Negative) White Blood Count 19.0x10^3/uL (4.0-11.0) 11.3x10^3/uL (4.0-11.0) Red Blood Count 3.48x10^6/uL (3.50-5.40) 3.43x10^6/uL (3.50-5.40) Hemoglobin 10.5g/dL (12.0-15.5) 10.3g/dL (12.0-15.5) Hematocrit 30.4% (36.0-47.0) 29.9% (36.0-47.0) Mean Corpuscular Volume 87fL (79-100) 87fL (79-100) Mean Corpuscular Hemoglobin 30pg (25-35) 30pg (25-35) Mean Corpuscular Hemoglobin Concent 35g/dL (31-37) 34g/dL (31-37) Red Cell Distribution Width 16.2% (11.5-14.5) 16.6% (11.5-14.5) Platelet Count 306x10^3/uL (140-400) 353x10^3/uL (140-400) Neutrophils (%) (Auto) 95% (31-73) 91% (31-73) Lymphocytes (%) (Auto) 3% (24-48) 4% (24-48) Monocytes (%) (Auto) 1% (0-9) 4% (0-9) Eosinophils (%) (Auto) 0% (0-3) 1% (0-3) Basophils (%) (Auto) 0% (0-3) 0% (0-3) Neutrophils # (Auto) 18.1x10^3uL (1.8-7.7) 10.3x10^3uL (1.8-7.7) Lymphocytes # (Auto) 0.6x10^3/uL (1.0-4.8) 0.5x10^3/uL (1.0-4.8) Monocytes # (Auto) 0.3x10^3/uL (0.0-1.1) 0.4x10^3/uL (0.0-1.1) Eosinophils # (Auto) 0.0x10^3/uL (0.0-0.7) 0.1x10^3/uL (0.0-0.7) Basophils # (Auto) 0.1x10^3/uL (0.0-0.2) 0.0x10^3/uL (0.0-0.2) Sodium Level 140mmol/L (136-145) 137mmol/L (136-145) Potassium Level 4.0mmol/L (3.5-5.1) 3.9mmol/L (3.5-5.1) Chloride Level 105mmol/L (98-107) 104mmol/L (98-107) Carbon Dioxide Level 25mmol/L (21-32) 24mmol/L (21-32) Anion Gap 10 (6-14) 9 (6-14) Blood Urea Nitrogen 6mg/dL (7-20) 7mg/dL (7-20) Creatinine 0.5mg/dL (0.6-1.0) 0.6mg/dL (0.6-1.0) Estimated GFR (Cockcroft-Gault) 125.0 101.3 Glucose Level 98mg/dL (70-99) 106mg/dL (70-99) Lactic Acid Level 1.0mmol/L (0.4-2.0) Calcium Level 8.0mg/dL (8.5-10.1) 8.4mg/dL (8.5-10.1) Glucose (Fingerstick) 112mg/dL (70-99) BUN/Creatinine Ratio 12 (6-20) Magnesium Level 2.1mg/dL (1.8-2.4) Total Bilirubin 0.3mg/dL (0.2-1.0) Aspartate Amino Transf (AST/SGOT) 35U/L (15-37) Alanine Aminotransferase (ALT/SGPT) 42U/L (14-59) Alkaline Phosphatase 146U/L (46-116) Total Protein 5.8g/dL (6.4-8.2) Albumin 2.3g/dL (3.4-5.0) Albumin/Globulin Ratio 0.7 (1.0-1.7) Medications Medications Medications reviewed and reconciled for discharge. Brief hospital course Brief hospital course This 61 year old female who presented with abdominal pain, weakness, and diarrhea. The following is a summary of her treatment: abdominal pain/diarrhea-acute viral gastroenteritis CT: Mild inflammatory fat stranding in the left mid abdomen with few fluid distended/mild dilated small bowel loops in the left mid abdomen, question enteritis. diarrhea resolved resume fentanyl IV for pain GI consulted-note review: suprapubic pain not related to GI leukocytosis Admit 34.8 03/07 11.3 recent marrow stimulator and steroid T99.9 05/04-resolved 05/05 urine negative at admit Abd CT noted mild bibasilar atelectasis or infiltrate 05/04 PA/lat CXR ordered BC x 2 ordered formed stools-Cdif spec not sent/order cancelled 05/04 ID consult-no antibiotics at this time 05/04 Lactic acid Admit 2.7 05/04 1.0 anemia chronic disease ADmit Hgb 10.9 05/05 10.3 monitor ARF dehydration POA Admit BUN 12 05/05 7 Cr 0.8 0.6 K 3.7 3.9 NS 75cc/hr-DC 05/05/16 DM steroid induced hyperglycemia monitor, no SSI Gluc 98-112 oral candidiasis nystatin swish swallow DVT/GI prophylaxis SCD/Rene PPI For further plan of care, please refer to the orders. Plan DC home and f/u 3-5 days in office. For more details regarding the past history, family history, social history, surgical history and other details, please refer to History and Physical. Subjective teary eye -feels defeated Objective alert Vitals Vital Signs Date Time Temp Pulse Resp B/P Pulse Ox O2 Delivery O2 Flow Rate FiO2 05/05/16 07:50 Room Air 05/05/16 07:06 98.8 104 127/69 95 98.8 05/04/16 11:18 16 Physical Exam General appearance - alert, ill appearing, and in mild distress Mental Status - alert, oriented to person, place, and time, affect appropriate to mood Head - normal Chest - clear to auscultation, no wheezes, rales or rhonchi, symmetric air entry Heart - S1 and S2 normal Abdomen - soft, +tender LLQ, nondistended,BS+ Neurological - no acute focal neurological deficit noted Musculoskeletal - R scapula pain Extremities - no pedal edema Skin - warm and dry Psych - crying, mildly depressed Medications Medications reviewed. Allergy Allergies Coded Allergies Type Severity Reaction Last Updated Verified No Known Drug Allergies 01/15/16 No Follow up in 3-5 days. Comments Discharge Management - 35 minutes. For other details please refer to discharge instructions ELLI STRANGE MD 05/05/16 0951: IM DISCHARGE & PROGRESS NOTES Brief hospital course Brief hospital course has low grade fever but feeling much better. D/w dr.S.Vizcaino- ok to discharge. see in office in 3 days. The patient was seen and examined by me. Chart reviewed and plan of care formulated. Discussed with, reviewed and agree with SKEIN BANDER's notes, plan of care and orders with modifications as necessary. For more details regarding further plans, please refer to the orders. Discharge Management - 35 minutes. GEOFF HUIZAR APRN May 05, 2016 08:31 ELLI STRANGE MD May 05, 2016 09:51
[2016-05-05] MEDS ORDERED: NYST1000 SWSW (08:48)
--- NOTE | 2016-05-05 08:48 | DISCH ---
DISCHARGE INSTRUCTIONS Condition on Discharge Condition on Discharge: Stable Activity After Discharge Activity Instructions for Disc: Activity as tolerated Diet after Discharge Diet after Discharge: Cardiac Contacting the DRBrenda after DC Call your doctor for: Concerns you may have Follow-Up Follow up with: Dr. Haley or Wojciech in 3-5 days GEOFF HUIZAR APRN May 05, 2016 08:48
[2016-05-05] MEDS: SALIVA STIMULANT AGENT 44ML SPRAY BOTTLE. PO SCH (08:57)
[2016-05-05] MEDS: ACETAMINOPHEN 325 MG TABLET. PO SCH (08:57)
[2016-05-05] MEDS: NYSTATIN 100,000 UNITS/ML 5 ML ORAL.SUSP. SWSW SCH (08:57)
--- NOTE | 2016-05-05 09:00 | PDOC ---
PROGRESS NOTES Subjective Subjective c/c- f/u of Invasive ductal carcinoma of the left breast Objective Objective Vital Signs Date Time Temp Pulse Resp B/P Pulse Ox O2 Delivery O2 Flow Rate FiO2 05/05/16 08:54 Room Air 05/05/16 07:06 98.8 104 127/69 95 98.8 05/04/16 11:18 16 Intake and Output 05/05/16 07:00 Intake Total 1920 ml Output Total 1200 ml Balance 720 ml Intake Oral 920 ml IV Total 1000 ml Output Urine Total 1200 ml Physical Exam Heart: Normal S1, Normal S2 General: Alert, Oriented X3 Lungs: Clear to auscultation Neuro: Normal speech Assessment Assessment Problems Medical Problems: (1) Leukocytosis Status: Acute (2) Nausea Status: Acute (3) Weakness Status: Acute A/P: 1. Invasive ductal carcinoma of the left breast lower inner quadrant diagnosed on 12/12/2015 status post left mastectomy and sentinel lymph node biopsy on . This is a grade 3 triple negative tumor measuring 2.4 cm and hence it is staged as a T2N0M0 stage IIA breast cancer. She is on adjuvant chemotherapy with Adriamycin and Cytoxan followed by Taxol, which she just had her first dose of taxol on 04/30/16 with steroid pre-meds on 04/29 and neulasta on 05/01/16. I will continue to monitor. f/u next week for chemo. She does not want to change to weekly dosing, plan Cycle 2 next week. 2. Leukocytosis due to neulasta. Monitor cbc 3. Dehydration 4. Bone pains due to neulasta. Continue tylenol. Improved. ok to d/c home. I d/ w RN Comment Review of Relevant I have reviewed the following items donny (where applicable) has been applied. Labs Laboratory Tests Test 05/03/16 13:05 05/03/16 19:00 05/04/16 06:20 05/04/16 10:49 Lactic Acid Level 2.0mmol/L (0.4-2.0) 1.0mmol/L (0.4-2.0) Clostridium difficile Toxin (PCR) Negative (Negative) White Blood Count 19.0x10^3/uL (4.0-11.0) Red Blood Count 3.48x10^6/uL (3.50-5.40) Hemoglobin 10.5g/dL (12.0-15.5) Hematocrit 30.4% (36.0-47.0) Mean Corpuscular Volume 87fL (79-100) Mean Corpuscular Hemoglobin 30pg (25-35) Mean Corpuscular Hemoglobin Concent 35g/dL (31-37) Red Cell Distribution Width 16.2% (11.5-14.5) Platelet Count 306x10^3/uL (140-400) Neutrophils (%) (Auto) 95% (31-73) Lymphocytes (%) (Auto) 3% (24-48) Monocytes (%) (Auto) 1% (0-9) Eosinophils (%) (Auto) 0% (0-3) Basophils (%) (Auto) 0% (0-3) Neutrophils # (Auto) 18.1x10^3uL (1.8-7.7) Lymphocytes # (Auto) 0.6x10^3/uL (1.0-4.8) Monocytes # (Auto) 0.3x10^3/uL (0.0-1.1) Eosinophils # (Auto) 0.0x10^3/uL (0.0-0.7) Basophils # (Auto) 0.1x10^3/uL (0.0-0.2) Sodium Level 140mmol/L (136-145) Potassium Level 4.0mmol/L (3.5-5.1) Chloride Level 105mmol/L (98-107) Carbon Dioxide Level 25mmol/L (21-32) Anion Gap 10 (6-14) Blood Urea Nitrogen 6mg/dL (7-20) Creatinine 0.5mg/dL (0.6-1.0) Estimated GFR (Cockcroft-Gault) 125.0 Glucose Level 98mg/dL (70-99) Calcium Level 8.0mg/dL (8.5-10.1) Glucose (Fingerstick) 112mg/dL (70-99) Test 05/05/16 03:22 White Blood Count 11.3x10^3/uL (4.0-11.0) Red Blood Count 3.43x10^6/uL (3.50-5.40) Hemoglobin 10.3g/dL (12.0-15.5) Hematocrit 29.9% (36.0-47.0) Mean Corpuscular Volume 87fL (79-100) Mean Corpuscular Hemoglobin 30pg (25-35) Mean Corpuscular Hemoglobin Concent 34g/dL (31-37) Red Cell Distribution Width 16.6% (11.5-14.5) Platelet Count 353x10^3/uL (140-400) Neutrophils (%) (Auto) 91% (31-73) Lymphocytes (%) (Auto) 4% (24-48) Monocytes (%) (Auto) 4% (0-9) Eosinophils (%) (Auto) 1% (0-3) Basophils (%) (Auto) 0% (0-3) Neutrophils # (Auto) 10.3x10^3uL (1.8-7.7) Lymphocytes # (Auto) 0.5x10^3/uL (1.0-4.8) Monocytes # (Auto) 0.4x10^3/uL (0.0-1.1) Eosinophils # (Auto) 0.1x10^3/uL (0.0-0.7) Basophils # (Auto) 0.0x10^3/uL (0.0-0.2) Sodium Level 137mmol/L (136-145) Potassium Level 3.9mmol/L (3.5-5.1) Chloride Level 104mmol/L (98-107) Carbon Dioxide Level 24mmol/L (21-32) Anion Gap 9 (6-14) Blood Urea Nitrogen 7mg/dL (7-20) Creatinine 0.6mg/dL (0.6-1.0) Estimated GFR (Cockcroft-Gault) 101.3 BUN/Creatinine Ratio 12 (6-20) Glucose Level 106mg/dL (70-99) Calcium Level 8.4mg/dL (8.5-10.1) Magnesium Level 2.1mg/dL (1.8-2.4) Total Bilirubin 0.3mg/dL (0.2-1.0) Aspartate Amino Transf (AST/SGOT) 35U/L (15-37) Alanine Aminotransferase (ALT/SGPT) 42U/L (14-59) Alkaline Phosphatase 146U/L (46-116) Total Protein 5.8g/dL (6.4-8.2) Albumin 2.3g/dL (3.4-5.0) Albumin/Globulin Ratio 0.7 (1.0-1.7) Laboratory Tests Test 05/04/16 10:49 05/05/16 03:22 Glucose (Fingerstick) 112mg/dL (70-99) White Blood Count 11.3x10^3/uL (4.0-11.0) Red Blood Count 3.43x10^6/uL (3.50-5.40) Hemoglobin 10.3g/dL (12.0-15.5) Hematocrit 29.9% (36.0-47.0) Mean Corpuscular Volume 87fL (79-100) Mean Corpuscular Hemoglobin 30pg (25-35) Mean Corpuscular Hemoglobin Concent 34g/dL (31-37) Red Cell Distribution Width 16.6% (11.5-14.5) Platelet Count 353x10^3/uL (140-400) Neutrophils (%) (Auto) 91% (31-73) Lymphocytes (%) (Auto) 4% (24-48) Monocytes (%) (Auto) 4% (0-9) Eosinophils (%) (Auto) 1% (0-3) Basophils (%) (Auto) 0% (0-3) Neutrophils # (Auto) 10.3x10^3uL (1.8-7.7) Lymphocytes # (Auto) 0.5x10^3/uL (1.0-4.8) Monocytes # (Auto) 0.4x10^3/uL (0.0-1.1) Eosinophils # (Auto) 0.1x10^3/uL (0.0-0.7) Basophils # (Auto) 0.0x10^3/uL (0.0-0.2) Sodium Level 137mmol/L (136-145) Potassium Level 3.9mmol/L (3.5-5.1) Chloride Level 104mmol/L (98-107) Carbon Dioxide Level 24mmol/L (21-32) Anion Gap 9 (6-14) Blood Urea Nitrogen 7mg/dL (7-20) Creatinine 0.6mg/dL (0.6-1.0) Estimated GFR (Cockcroft-Gault) 101.3 BUN/Creatinine Ratio 12 (6-20) Glucose Level 106mg/dL (70-99) Calcium Level 8.4mg/dL (8.5-10.1) Magnesium Level 2.1mg/dL (1.8-2.4) Total Bilirubin 0.3mg/dL (0.2-1.0) Aspartate Amino Transf (AST/SGOT) 35U/L (15-37) Alanine Aminotransferase (ALT/SGPT) 42U/L (14-59) Alkaline Phosphatase 146U/L (46-116) Total Protein 5.8g/dL (6.4-8.2) Albumin 2.3g/dL (3.4-5.0) Albumin/Globulin Ratio 0.7 (1.0-1.7) Medications Current Medications Sodium Chloride (Iv Sodium Chloride 0.9% 500ml Bag) 500 ml @ 500 mls/hr 1X ONCE IV Last administered on 05/02/16 19:05; Start 05/02/16 at 19:30; Stop at 20:29; Status DC Fentanyl Citrate (Fentanyl 2ml Vial) 25 mcg PRN Q30MIN PRN IV SEVERE PAIN Last administered on 05/02/16 19:04; Start 05/02/16 at 19:00; Stop 05/04/16 at 17:50; Status DC Ondansetron HCl (Zofran) 4 mg PRN Q8HRS PRN IV NAUSEA/VOMITING; Start 05/02/16 at 21:45; Stop 05/03/16 at 21:44; Status DC Morphine Sulfate 2 mg 2 mg PRN Q2HR PRN IV SEVERE PAIN Last administered on 05/03 12:51; Start 05/02/16 at 21:45; Stop 05/03/16 at 21:44; Status DC Sodium Chloride (Iv Sodium Chloride 0.9% 1000ml Bag) 1,000 ml @ 125 mls/hr Q8H IV Last administered on 05/03/16 09:15; Start 05/02/16 at 21:31; Stop 05/03/16 at 17:37; Status DC Acetaminophen (Tylenol) 325 mg QID PO Last administered on 05/05/16 08:57; Start 05/03/16 at 13:00 Saliva Substitute (Biotene Moisturizing Mouth) 1 spray DAILY PO Last administered on 05/05/16 08:57; Start 05/04/16 at 09:00 Nystatin 5 ml 5 ml [id number] Last administered on 05/05/16 08:57; Start 05/03 at 13:00 Sodium Chloride (Iv Sodium Chloride 0.9% 1000ml Bag) 1,000 ml @ 75 mls/hr [id number] IV Last administered on 05/05/16 04:02; Start 05/03/16 at 12:45 Enoxaparin Sodium (Lovenox 40mg Syringe) 40 mg Q24H SQ Last administered on 05/04 15:33; Start 05/03/16 at 14:00 Pantoprazole Sodium (Protonix) 40 mg DAILYAC PO Last administered on 05/05/16 07:48; Start 05/04/16 at 10:30 Fentanyl Citrate (Fentanyl 2ml Vial) 25 mcg PRN Q2HR PRN IV PAIN Last administered on 05/05/16 07:49; Start 05/04/16 at 09:45 Active Scripts Active Nystatin 100,000 Unit/1 Ml Oral.susp 5 Ml SWSW [id number] Salivasure (Saliva Stimulant Comb. No.5) 1 Each Lozenge 1 Each MM DAILY Reported Tylenol (Acetaminophen) 325 Mg Tablet 1-2 Tab PO QID Vitals/I & O Vital Sign - Last 24 Hours 05/04/16 05/04/16 05/04/16 05/04/16 10:06 11:18 12:51 14:54 Temp 97.9 98.6 97.9 98.6 Pulse 90 105 Resp 16 B/P 99/73 119/73 Pulse Ox 95 93 O2 Delivery Room Air Room Air Room Air Room Air 05/04/16 05/04/16 05/04/16 05/04/16 19:00 20:00 20:22 23:00 Temp 99.3 97.6 99.3 97.6 Pulse 101 95 B/P 112/71 122/65 Pulse Ox 99 93 98 O2 Delivery Room Air Room Air Room Air Room Air 05/05/16 05/05/16 05/05/16 05/05/16 03:00 03:43 04:13 04:28 Temp 100.0 97.6 100.0 97.6 Pulse 109 B/P 120/74 Pulse Ox 90 98 98 O2 Delivery Room Air Room Air 05/05/16 05/05/16 05/05/16 05/05/16 07:06 07:49 07:50 07:58 Temp 98.8 98.8 Pulse 104 B/P 127/69 Pulse Ox 95 O2 Delivery Room Air Room Air Room Air Room Air 05/05/16 08:54 O2 Delivery Room Air Intake and Output 05/04/16 05/04/16 05/05/16 15:00 23:00 07:00 Intake Total 1200 ml 720 ml Output Total 1200 ml Balance 1200 ml -480 ml Nutrition Consultation Dietary Evaluation: Recommendations by RD: Increase Calorie Intake, Protein supplementation Comments: Boost plus - 360kcal and 14g protein per serving Expected Outcomes/Goals: meet >75% est nutr needs Malnutrition Findings: Food and Nutrition Intake (Mod: <75% est energy req 7days Weight Status: Appropriate PAMELA ZARCO MD May 05, 2016 09:00
--- NOTE | 2016-05-05 09:46 | PDOC ---
Infectious Disease Note Subjective Subjective pt feeling good, ready to go home says NO[facility] DICKEY GEN: Denies fevers, chills, sweats HEENT: Denies blurred vision, sore throat CV: Denies chest pain RESP: Denies shortness of air, cough GI: Denies n/v/d NEURO: Denies confusion, dizziness MSK: Denies weakness, joint pain/swelling Vital Sign Vital Signs Vital Signs Date Time Temp Pulse Resp B/P Pulse Ox O2 Delivery O2 Flow Rate FiO2 05/05/16 08:54 Room Air 05/05/16 07:06 98.8 104 127/69 95 98.8 05/04/16 11:18 16 Physical Exam PHYSICAL EXAM GENERAL: NAD, Alert HEENT: PERRL, OC/OP NECK: Supple, no JVD, no LN LUNGS: Clear HEART: S1S2, no gallop, no murmur ABD: Soft, NT, no organomegaly, no rebound EXT: No edema, no cyanosis WRAPPER STRIPPER: Alert, oriented x 3, no focal neurologic deficit SKIN: No rash IV: ok Labs Lab Laboratory Tests Test 05/04/16 10:49 05/05/16 03:22 Glucose (Fingerstick) 112mg/dL (70-99) White Blood Count 11.3x10^3/uL (4.0-11.0) Red Blood Count 3.43x10^6/uL (3.50-5.40) Hemoglobin 10.3g/dL (12.0-15.5) Hematocrit 29.9% (36.0-47.0) Mean Corpuscular Volume 87fL (79-100) Mean Corpuscular Hemoglobin 30pg (25-35) Mean Corpuscular Hemoglobin Concent 34g/dL (31-37) Red Cell Distribution Width 16.6% (11.5-14.5) Platelet Count 353x10^3/uL (140-400) Neutrophils (%) (Auto) 91% (31-73) Lymphocytes (%) (Auto) 4% (24-48) Monocytes (%) (Auto) 4% (0-9) Eosinophils (%) (Auto) 1% (0-3) Basophils (%) (Auto) 0% (0-3) Neutrophils # (Auto) 10.3x10^3uL (1.8-7.7) Lymphocytes # (Auto) 0.5x10^3/uL (1.0-4.8) Monocytes # (Auto) 0.4x10^3/uL (0.0-1.1) Eosinophils # (Auto) 0.1x10^3/uL (0.0-0.7) Basophils # (Auto) 0.0x10^3/uL (0.0-0.2) Sodium Level 137mmol/L (136-145) Potassium Level 3.9mmol/L (3.5-5.1) Chloride Level 104mmol/L (98-107) Carbon Dioxide Level 24mmol/L (21-32) Anion Gap 9 (6-14) Blood Urea Nitrogen 7mg/dL (7-20) Creatinine 0.6mg/dL (0.6-1.0) Estimated GFR (Cockcroft-Gault) 101.3 BUN/Creatinine Ratio 12 (6-20) Glucose Level 106mg/dL (70-99) Calcium Level 8.4mg/dL (8.5-10.1) Magnesium Level 2.1mg/dL (1.8-2.4) Total Bilirubin 0.3mg/dL (0.2-1.0) Aspartate Amino Transf (AST/SGOT) 35U/L (15-37) Alanine Aminotransferase (ALT/SGPT) 42U/L (14-59) Alkaline Phosphatase 146U/L (46-116) Total Protein 5.8g/dL (6.4-8.2) Albumin 2.3g/dL (3.4-5.0) Albumin/Globulin Ratio 0.7 (1.0-1.7) Objective Assessment Low grade fever better Leukocytosis sec to neulasta and steroids Breast ca s/p chemo Abdominal pain , enteritis Plan Plan of Care bc neg so far no need for any antibiotics at this stage d/w dr Haley d/c DAVID Hdez MD May 05, 2016 09:46
[2016-05-05] MEDS ORDERED: ESCI5TAB24 PO (09:57)
[2016-05-05 10:48] VITALS: BP 104/58
[2016-05-05] MEDS ORDERED: ESCITALOPRAM 5 MG TABLET. PO SCH (11:00)
--- NOTE | 2016-05-05 11:14 | PDOC ---
Subjective: Subjective: Pain resolved. Objective: Objective: Dressed to go home, going to take communion. Vital Signs: Vital Signs Date Time Temp Pulse Resp B/P Pulse Ox O2 Delivery O2 Flow Rate FiO2 05/05/16 10:48 97.9 95 18 104/58 96 Room Air 97.9 Labs: Laboratory Tests Test 05/05/16 03:22 White Blood Count 11.3x10^3/uL Red Blood Count 3.43x10^6/uL Hemoglobin 10.3g/dL Hematocrit 29.9% Mean Corpuscular Volume 87fL Mean Corpuscular Hemoglobin 30pg Mean Corpuscular Hemoglobin Concent 34g/dL Red Cell Distribution Width 16.6% Platelet Count 353x10^3/uL Neutrophils (%) (Auto) 91% Lymphocytes (%) (Auto) 4% Monocytes (%) (Auto) 4% Eosinophils (%) (Auto) 1% Basophils (%) (Auto) 0% Neutrophils # (Auto) 10.3x10^3uL Lymphocytes # (Auto) 0.5x10^3/uL Monocytes # (Auto) 0.4x10^3/uL Eosinophils # (Auto) 0.1x10^3/uL Basophils # (Auto) 0.0x10^3/uL Sodium Level 137mmol/L Potassium Level 3.9mmol/L Chloride Level 104mmol/L Carbon Dioxide Level 24mmol/L Anion Gap 9 Blood Urea Nitrogen 7mg/dL Creatinine 0.6mg/dL Estimated GFR (Cockcroft-Gault) 101.3 BUN/Creatinine Ratio 12 Glucose Level 106mg/dL Calcium Level 8.4mg/dL Magnesium Level 2.1mg/dL Total Bilirubin 0.3mg/dL Aspartate Amino Transf (AST/SGOT) 35U/L Alanine Aminotransferase (ALT/SGPT) 42U/L Alkaline Phosphatase 146U/L Total Protein 5.8g/dL Albumin 2.3g/dL Albumin/Globulin Ratio 0.7 PE: GEN: NAD NEURO/PSYCH: A & O 3 A/P: Suprapubic discomfort - improved Abnormal CT -mild inflammatory fat stranding in the left mid abdomen with few fluid distended/mild dilated small bowel loops in the left mid abdomen, question enteritis -- DC okay per GI. Follow-up PRN. INEZ CARTWRIGHT May 05, 2016 11:14
[2016-05-06] MEDS ORDERED: AMOX1TAB61 PO (20:38)
== END 2016-05-05 11:25 | disposition home or self-care (01) | DRG 392 ==
LOC: ER 17:19 → 5 NORTH 22:13 → OBSVTOIN 05-03 12:42
PROVIDERS: ADMIT Internal Medicine; ATTEND Internal Medicine
DX: A08.4 Viral intestinal infection, unspecified (principal); E44.0 Moderate protein-calorie malnutrition; B37.0 Candidal stomatitis; Z68.20 Body mass index [BMI] 20.0-20.9, adult; D63.8 Anemia in other chronic diseases classified elsewhere; E09.65 Drug or chemical induced diabetes mellitus with hyperglycemia; E78.5 Hyperlipidemia, unspecified; D64.81 Anemia due to antineoplastic chemotherapy; E86.0 Dehydration; F17.210 Nicotine dependence, cigarettes, uncomplicated; T38.0X5A Adverse effect of glucocorticoids and synthetic analogues, initial encounter; T45.8X5A Adverse effect of other primarily systemic and hematological agents, initial encounter; Z80.3 Family history of malignant neoplasm of breast; Z82.49 Family history of ischemic heart disease and other diseases of the circulatory system; Z83.3 Family history of diabetes mellitus; Z85.3 Personal history of malignant neoplasm of breast; Z90.12 Acquired absence of left breast and nipple; Z92.21 Personal history of antineoplastic chemotherapy
CPT/HCPCS: 36415; 71010; 71020; 74176; 80048; 80053; 80076; 81001; 82947; 83605; 83690; 83735; 83880; 84484; 85007; 85027; 87040; 87045; 87324; 93005; G0378; G0379; J1650; J2270; J3010; J7030; J7040

== ENCOUNTER 2016-05-06 16:06 | Emergency (ER) | payer OTHER ==
[~2016-05-06] VITALS: Ht 152.4 cm; Wt 47.6 kg
[~2016-05-06 16:06] MED LIST changes: +ESCI5TAB24 PO; +NYST1000 SWSW
[2016-05-06] MEDS ORDERED: IV NORMAL SALINE 1000ML BAG 1,000 ML IV ONE (17:15)
[2016-05-06] MEDS ORDERED: ONDANSETRON PF 4 MG/2 ML VIAL. IV ONE (17:15)
[2016-05-06 17:29] LABS: BASO % 0 % (0-3); EOS % 0 % (0-3); HEMOGLOBIN 10.5 g/dL (12.0-15.5); LYMPH # 0.5 x10^3/uL (1.0-4.8); LYMPH % 4 % (24-48); MEAN CORPUSCULAR HEMOGLOBIN 30 pg (25-35); MEAN CORPUSCULAR HGB CONC 34 g/dL (31-37); MEAN CORPUSCULAR VOLUME 89 fL (79-100); MONO % 14 % (0-9); NEUT % 82 % (31-73); PLATELET COUNT 416 x10^3/uL (140-400); RED BLOOD COUNT 3.49 x10^6/uL (3.50-5.40); WHITE BLOOD COUNT 12.6 x10^3/uL (4.0-11.0)
[2016-05-06 17:42] LABS: CALCIUM 8.9 mg/dL (8.5-10.1); CREATININE 0.6 mg/dL (0.6-1.0); GFR 101.3; POTASSIUM 3.7 mmol/L (3.5-5.1)
[2016-05-06 17:48] LABS: ALBUMIN 2.6 g/dL (3.4-5.0); ALBUMIN/GLOBULIN RATIO 0.7 (1.0-1.7); TOTAL BILIRUBIN 0.2 mg/dL (0.2-1.0); TOTAL PROTEIN 6.3 g/dL (6.4-8.2)
[2016-05-06 18:06] LABS: BILIRUBIN,URINE NEGATIVE (NEG); GLUCOSE,URINE NEGATIVE (NEG); NITRITE,URINE NEGATIVE (NEG); PROTEIN,URINE NEGATIVE (NEG-TRACE)
[2016-05-06 18:13] LABS: BACTERIA,URINE 0 /HPF (0-FEW); RBC,URINE OCC /HPF (0-2); SQUAMOUS EPITHELIAL CELL,UR FEW /LPF; WBC,URINE OCC /HPF (0-4)
[2016-05-06 18:30] LABS: % BASOS 1 % (0-3)
[2016-05-06 18:33] LABS: ANISOCYTOSIS SLIGHT; PLT ESTIMATE INCREASED (ADEQUATE); TOXIC VACUOLATION SLIGHT
[2016-05-06 18:34] LABS: TOXIC GRANULATION SLIGHT
[2016-05-06] MEDS ORDERED: HEPARIN PF 500 UNIT/5 ML DISP.SYRIN. IV ONE ×2 (20:32→21:00)
[2016-05-06] MEDS ORDERED: AMOX1TAB61 PO (20:38)
--- NOTE | 2016-05-06 20:39 | PHYS DOC ---
Past Medical History Past Medical History: Cancer Additional Past Medical Histor: BREAST CA Past Surgical History: Tonsillectomy Additional Past Surgical Histo: LEFT MASTECTOMY Alcohol Use: None Drug Use: None Adult General Chief Complaint Chief Complaint: WEAKNESS/GENERALIZED HPI HPI Patient is a 61 year old female who comes to the ED with the complaint of chills and weakness. I was called by Susana in Dr. Mcfarland's office about this patient. She had a dose of Taxol on April 30 for breast cancer and has been sick , just discharged from the hospital yesterday. They're concerned she might be neutropenic. She developed chills today and had a couple of episodes of diarrhea. They told her to come in to be evaluated. The patient tells me that she just feels weak and doesn't feel very well. No vomiting, a couple episodes of diarrhea. She does not know that she's had a fever today. No cough, no UTI symptoms. Review of Systems Review of Systems Constitutional: As in history of present illness Eyes: Denies change in visual acuity, redness, or eye pain [] HENT: Denies nasal congestion or sore throat [] Respiratory: Denies cough or shortness of breath [] Cardiovascular: Denies chest pain GI: Denies abdominal pain, nausea, vomiting, bloody stools : Denies dysuria or hematuria [] Musculoskeletal: Denies back pain or joint pain [] Integument: Denies rash or skin lesions [] Neurologic: Denies headache, focal weakness or sensory changes [] Current Medications Current Medications Current Medications Medications (Trade) Dose Ordered Sig/Karon Start Time Stop Time Status Last Admin Dose Admin Amoxicillin/ Clavulanate Potassium (Augmentin 875/ 125mg) 1 tab 1X ONCE 05/06/16 20:45 05/06/16 20:46 DC 05/06/16 21:02 1 TAB Heparin Sodium (Porcine) (Hep Lock Adult) 500 unit 1X ONCE 05/06/16 21:00 05/06/16 21:01 DC 05/06/16 20:40 500 UNIT Ondansetron HCl (Zofran) 4 mg 1X ONCE 05/06/16 17:15 05/06/16 17:16 DC 05/06/16 17:26 4 MG Sodium Chloride (Iv Sodium Chloride 0.9% 1000ml Bag) 1,000 ml @ 1,000 mls/hr 1X ONCE 05/06/16 17:15 05/06/16 18:14 DC 05/06/16 17:25 1,000 MLS/HR Allergies Allergies Allergies Coded Allergies Type Severity Reaction Last Updated Verified No Known Drug Allergies 01/15/16 No Physical Exam Physical Exam Constitutional: Well developed, well nourished, no acute distress, non-toxic appearance. Alert, mentating normally, talking to someone on her phone. HENT: Normocephalic, atraumatic, bilateral external ears normal, oral mucous membranes somewhat dry, nose normal. [] Eyes: conjunctiva normal, no discharge. [] Neck: Normal range of motion, no stridor. [] Cardiovascular:Heart rate regular rhythm, no murmur [] Lungs & Thorax: Bilateral breath sounds clear to auscultation [] Abdomen: Bowel sounds normal, soft, no tenderness, no masses, no pulsatile masses. [] Skin: Warm, dry, no erythema, no rash. [] Back: No tenderness, no CVA tenderness. [] Extremities: No tenderness, no cyanosis, no clubbing, ROM intact, no edema. [] Neurologic: Alert and oriented X 3, normal motor function, normal sensory function, no focal deficits noted. [] Current Patient Data Vital Signs Vital Signs Date Time Temp Pulse Resp B/P Pulse Ox O2 Delivery O2 Flow Rate FiO2 05/06/16 20:50 100 18 124/66 95 Nasal Cannula 2 05/06/16 16:54 98.6 98.6 Lab Values Laboratory Tests Test 05/06/16 17:19 05/06/16 17:55 White Blood Count 12.6x10^3/uL (4.0-11.0) H Red Blood Count 3.49x10^6/uL (3.50-5.40) L Hemoglobin 10.5g/dL (12.0-15.5) L Hematocrit 31.0% (36.0-47.0) L Mean Corpuscular Volume 89fL (79-100) Mean Corpuscular Hemoglobin 30pg (25-35) Mean Corpuscular Hemoglobin Concent 34g/dL (31-37) Red Cell Distribution Width 16.0% (11.5-14.5) H Platelet Count 416x10^3/uL (140-400) H Neutrophils (%) (Auto) 82% (31-73) H Lymphocytes (%) (Auto) 4% (24-48) L Monocytes (%) (Auto) 14% (0-9) H Eosinophils (%) (Auto) 0% (0-3) Basophils (%) (Auto) 0% (0-3) Neutrophils # (Auto) 10.3x10^3uL (1.8-7.7) H Lymphocytes # (Auto) 0.5x10^3/uL (1.0-4.8) L Monocytes # (Auto) 1.7x10^3/uL (0.0-1.1) H Eosinophils # (Auto) 0.0x10^3/uL (0.0-0.7) Basophils # (Auto) 0.0x10^3/uL (0.0-0.2) Segmented Neutrophils % 33% (35-66) L Band Neutrophils % 50% (0-9) H Lymphocytes % 5% (24-48) L Atypical Lymphocytes % (Manual) 1% (0-0) H Monocytes % 9% (0-10) Basophils % 1% (0-3) Metamyelocytes % 1% (0-0) H Toxic Granulation Slight Toxic Vacuolation Slight Dohle Bodies Few Platelet Estimate Increased (ADEQUATE) Giant Platelets Few Anisocytosis Slight Sodium Level 136mmol/L (136-145) Potassium Level 3.7mmol/L (3.5-5.1) Chloride Level 100mmol/L (98-107) Carbon Dioxide Level 25mmol/L (21-32) Anion Gap 11 (6-14) Blood Urea Nitrogen 11mg/dL (7-20) Creatinine 0.6mg/dL (0.6-1.0) Estimated GFR (Cockcroft-Gault) 101.3 BUN/Creatinine Ratio 18 (6-20) Glucose Level 126mg/dL (70-99) H Calcium Level 8.9mg/dL (8.5-10.1) Total Bilirubin 0.2mg/dL (0.2-1.0) Aspartate Amino Transferase (AST) 46U/L (15-37) H Alanine Aminotransferase (ALT) 55U/L (14-59) Alkaline Phosphatase 169U/L (46-116) H Total Protein 6.3g/dL (6.4-8.2) L Albumin 2.6g/dL (3.4-5.0) L Albumin/Globulin Ratio 0.7 (1.0-1.7) L Urine Collection Type Unknown Urine Color Yellow Urine Clarity Clear Urine pH 6.0 Urine Specific [place] 1.015 Urine Protein Negativemg/dL (NEG-TRACE) Urine Glucose (UA) Negativemg/dL (NEG) Urine Ketones (Stick) Negativemg/dL (NEG) Urine Blood Negative (NEG) Urine Nitrite Negative (NEG) Urine Bilirubin Negative (NEG) Urine Urobilinogen Dipstick 1.0mg/dL (0.2 mg/dL) Urine Leukocyte Esterase Negative (NEG) Urine RBC Occ/HPF (0-2) Urine WBC Occ/HPF (0-4) Urine Squamous Epithelial Cells Few/LPF Urine Transitional Epithelial Cells Occ/LPF Urine Bacteria 0/HPF (0-FEW) Urine Mucus Slight/LPF Laboratory Tests 3 17:19 Laboratory Tests 05/06/16 17:19 EKG EKG [] Radiology/Procedures Radiology/Procedures One view portable chest x-ray read by me. Heart size is normal. Lung pacheco are clear. No acute cardiopulmonary abnormality. [] Course & Med Decision Making Course & Med Decision Making Pertinent Labs and Imaging studies reviewed. (See chart for details) 61-year-old female who receives Taxol last week presents with chills today. Initial temperature was not elevated but I rechecked her temp and it was 100.6. Patient is not neutropenic, in fact has a slight leukocytosis. We did not identify a source of infection. 2 peripheral blood cultures were obtained and one was obtained from her port. She was given a liter of IV fluids for some dehydration and tachycardia. I spoke with the physician taking calls in Dr. Mcfarland's group. She felt that the patient could be discharged on Augmentin and the patient was given her first dose in the emergency department and given a prescription. The patient was asked to see Dr. Mcfarland and 1-2 days in the office, return precautions were given. She should return to the ED for feeling worse, feeling more weak, development of new symptoms. To call her doctor if any questions. Patient is agreeable to the plan for discharge. [] Dragon Disclaimer Dragon Disclaimer This electronic medical record was generated, in whole or in part, using a voice recognition dictation system. Departure Departure Impression: Primary Impression: Fever Disposition: HOME, SELF-CARE Condition: STABLE Referrals: ELLI STRANGE MD (PCP) Patient Instructions: Chemotherapy Additional Instructions: I spoke with a doctor covering for Dr. Mcfarland. She recommended that we start you on antibiotics, which we have done. Rest and drink plenty of fluids. Call tomorrow morning for an appointment to see Dr. Mcfarland on or Wednesday. If you start feeling worse, if you are vomiting, if short of breath, return to emergency. Take Tylenol (acetaminophen) 650 mg every 6 hours to keep fever under control. Scripts Amoxicillin/Potassium Clav (Augmentin 875-125 Tablet)1 Each Tablet1 Tab PO BID # 20 TAB Antibiotic Prov:KLEBER SANON MD 05/06/16 KLEBER SANON MD May 06, 2016 20:39
[2016-05-06] MEDS ORDERED: AMOXICILLIN/K CLAV 875/125MG TABLET. PO ONE (20:45)
[2016-05-06 20:50] VITALS: BP 124/66
--- NOTE | 2016-05-07 08:37 | RAD ---
Portable chest, 05/06/2016: History: Chills and weakness Comparison is made to a study from 05/04/2016. A right Port-A-Cath remains in place extending into the inferior aspect of the superior vena cava. The heart size and pulmonary vascularity are normal. No pulmonary infiltrates are seen. There is no evidence of pleural fluid. IMPRESSION: No acute cardiopulmonary abnormality is detected.
== END 2016-05-06 21:10 | disposition home or self-care (01) ==
LOC: ER 16:06
DX: R50.9 Fever, unspecified (principal); R53.1 Weakness; R19.7 Diarrhea, unspecified
CPT/HCPCS: 36415; 71010; 80053; 81001; 85007; 85027; 87040; 96361; 96374; 96375; 99285; J2405; J7030

== ENCOUNTER 2016-06-21 10:21 | Emergency (ER) | payer OTHER ==
[~2016-06-21] VITALS: Ht 152.4 cm; Wt 47.6 kg
[~2016-06-21 10:21] MED LIST changes: +AMOX1TAB61 PO
--- NOTE | 2016-06-21 12:24 | RAD ---
AP portable chest radiograph 06/21/2016 Clinical History: Breast cancer. Postchemotherapy treatment. Weakness. An AP portable erect digital radiograph of the chest was obtained. Comparison study is dated 05/06/2016. A right internal jugular [id number] type catheter is unchanged in position. Surgical clips overlie the left axilla. The cardiac silhouette is borderline enlarged. Atherosclerotic calcification of the thoracic aorta is seen. The thoracic aorta is minimally tortuous. No acute pulmonary infiltrate is noted. No pneumothorax or pleural effusion is seen. The osseous structures are unchanged. Impression: No acute pulmonary infiltrate is seen.
--- NOTE | 2016-06-21 12:28 | EKG ---
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
[2016-06-21 12:30] LABS: BASO # 0.1 x10^3/uL (0.0-0.2); BASO % 0 % (0-3); EOS % 0 % (0-3); HEMATOCRIT 37.1 % (36.0-47.0); HEMOGLOBIN 12.1 g/dL (12.0-15.5); LYMPH # 1.5 x10^3/uL (1.0-4.8); LYMPH % 7 % (24-48); MEAN CORPUSCULAR HEMOGLOBIN 30 pg (25-35); MEAN CORPUSCULAR HGB CONC 33 g/dL (31-37); MEAN CORPUSCULAR VOLUME 94 fL (79-100); MONO % 9 % (0-9); NEUT % 84 % (31-73); PLATELET COUNT 320 x10^3/uL (140-400); RED BLOOD COUNT 3.97 x10^6/uL (3.50-5.40); RED CELL DISTRIBUTION WIDTH 17.9 % (11.5-14.5); WHITE BLOOD COUNT 21.1 x10^3/uL (4.0-11.0)
[2016-06-21 12:37] LABS: CALCIUM 9.2 mg/dL (8.5-10.1); CREATININE 0.6 mg/dL (0.6-1.0); GFR 101.3; POTASSIUM 3.9 mmol/L (3.5-5.1)
[2016-06-21 12:45] LABS: ALBUMIN 3.8 g/dL (3.4-5.0); DIRECT BILIRUBIN 0.1 mg/dL (0.0-0.2); TOTAL BILIRUBIN 0.2 mg/dL (0.2-1.0); TOTAL PROTEIN 6.7 g/dL (6.4-8.2)
[2016-06-21] MEDS ORDERED: IV NORMAL SALINE 500ML BAG 500 ML IV ONE (12:45)
[2016-06-21 12:56] LABS: BILIRUBIN,URINE NEGATIVE (NEG); GLUCOSE,URINE NEGATIVE (NEG); NITRITE,URINE NEGATIVE (NEG); PH,URINE 6.5; PROTEIN,URINE NEGATIVE (NEG-TRACE); UROBILINOGEN,URINE 0.2 mg/dL (0.2 mg/dL)
[2016-06-21 13:03] LABS: BACTERIA,URINE 0 /HPF (0-FEW); RBC,URINE 0 /HPF (0-2); WBC,URINE 0 /HPF (0-4)
[2016-06-21 13:04] LABS: SQUAMOUS EPITHELIAL CELL,UR FEW /LPF
[2016-06-21 13:12] LABS: ANISOCYTOSIS SLIGHT; PLT ESTIMATE ADEQUATE (ADEQUATE); POLYCHROMASIA SLIGHT
--- NOTE | 2016-06-21 13:39 | PHYS DOC ---
Past Medical History Past Medical History: Cancer Additional Past Medical Histor: BREAST CA Past Surgical History: Tonsillectomy Additional Past Surgical Histo: LEFT MASTECTOMY Alcohol Use: None Drug Use: None Adult General Chief Complaint Chief Complaint: LOWER EXT PAIN HPI HPI 61-year-old female presenting to the emergency department today with generalized weakness for the past few days. She just finished her chemotherapy for breast cancer on the 13th of this month. She reports her legs again "giving out on her". This is been present for about 2 weeks. She denies polyuria dysuria chest pain shortness of breath or cough. Location generalized. Duration intermittent. Worse with walking. Review of systems is negative for fevers chills nausea vomiting abdominal pain. All other review of systems is negative unless otherwise noted in history of present illness. Review of Systems Review of Systems SEE ABOVE. Current Medications Current Medications Current Medications Medications (Trade) Dose Ordered Sig/Karon Start Time Stop Time Status Last Admin Dose Admin Sodium Chloride (Iv Sodium Chloride 0.9% 500ml Bag) 500 ml @ 500 mls/hr 1X ONCE 06/21/16 12:45 06/21/16 13:44 06/21/16 12:48 500 MLS/HR Allergies Allergies Allergies Coded Allergies Type Severity Reaction Last Updated Verified No Known Drug Allergies 01/15/16 No Physical Exam Physical Exam Constitutional: Well developed, well nourished, no acute distress, non-toxic appearance. HENT: Normocephalic, atraumatic, bilateral external ears normal, oropharynx moist, no oral exudates, nose normal. [] Eyes: PERRLA, EOMI, conjunctiva normal, no discharge. [] Neck: Normal range of motion, no tenderness, supple, no stridor. Cardiovascular:Heart rate regular rhythm, no murmur [] Lungs & Thorax: Bilateral breath sounds clear to auscultation [] Abdomen: Soft nontender abdomen without rebound tenderness or guarding present. Negative McBurneys point. Negative Rendon sign. No ecchymosis present. Skin: Warm, dry, no erythema, no rash. [] Back: No tenderness, no CVA tenderness. [] Extremities: No tenderness, no cyanosis, no clubbing, ROM intact, no edema. Neurologic: Mental status: Awake oriented and alert x3 Cranial nerves: Extraocular movements intact, eyebrows nay bilaterally smile symmetric, uvula elevation, shoulder shrug intact, tongue protrusion normal DTRs: 2+ Sensation: equal and normal in all extremities Strength: 5/5 in upper and lower extremities bilaterally Psychologic: Affect normal, judgement normal, mood normal. [] Current Patient Data Vital Signs Vital Signs Date Time Temp Pulse Resp B/P Pulse Ox O2 Delivery O2 Flow Rate FiO2 06/21/16 10:38 97.8 89 18 125/74 96 Room Air 97.8 Lab Values Laboratory Tests Test 06/21/16 12:05 06/21/16 12:18 White Blood Count 21.1x10^3/uL (4.0-11.0) H Red Blood Count 3.97x10^6/uL (3.50-5.40) Hemoglobin 12.1g/dL (12.0-15.5) Hematocrit 37.1% (36.0-47.0) Mean Corpuscular Volume 94fL (79-100) Mean Corpuscular Hemoglobin 30pg (25-35) Mean Corpuscular Hemoglobin Concent 33g/dL (31-37) Red Cell Distribution Width 17.9% (11.5-14.5) H Platelet Count 320x10^3/uL (140-400) Neutrophils (%) (Auto) 84% (31-73) H Lymphocytes (%) (Auto) 7% (24-48) L Monocytes (%) (Auto) 9% (0-9) Eosinophils (%) (Auto) 0% (0-3) Basophils (%) (Auto) 0% (0-3) Neutrophils # (Auto) 17.6x10^3uL (1.8-7.7) H Lymphocytes # (Auto) 1.5x10^3/uL (1.0-4.8) Monocytes # (Auto) 1.8x10^3/uL (0.0-1.1) H Eosinophils # (Auto) 0.0x10^3/uL (0.0-0.7) Basophils # (Auto) 0.1x10^3/uL (0.0-0.2) Segmented Neutrophils % 65% (35-66) Band Neutrophils % 23% (0-9) H Lymphocytes % 3% (24-48) L Monocytes % 8% (0-10) Metamyelocytes % 1% (0-0) H Platelet Estimate Adequate (ADEQUATE) Polychromasia Slight Anisocytosis Slight Sodium Level 140mmol/L (136-145) Potassium Level 3.9mmol/L (3.5-5.1) Chloride Level 105mmol/L (98-107) Carbon Dioxide Level 27mmol/L (21-32) Anion Gap 8 (6-14) Blood Urea Nitrogen 15mg/dL (7-20) Creatinine 0.6mg/dL (0.6-1.0) Estimated GFR (Cockcroft-Gault) 101.3 Glucose Level 121mg/dL (70-99) H Lactic Acid Level 0.9mmol/L (0.4-2.0) Calcium Level 9.2mg/dL (8.5-10.1) Total Bilirubin 0.2mg/dL (0.2-1.0) Direct Bilirubin 0.1mg/dL (0.0-0.2) Aspartate Amino Transferase (AST) 19U/L (15-37) Alanine Aminotransferase (ALT) 30U/L (14-59) Alkaline Phosphatase 188U/L (46-116) H Troponin I Quantitative < 0.017ng/mL (0.000-0.055) JM-Pju-O-Type Natriuretic Peptide 219pg/mL (0-124) H Total Protein 6.7g/dL (6.4-8.2) Albumin 3.8g/dL (3.4-5.0) Lipase 144U/L (73-393) Urine Collection Type Unknown Urine Color Yellow Urine Clarity Clear Urine pH 6.5 Urine Specific [place] 1.015 Urine Protein Negativemg/dL (NEG-TRACE) Urine Glucose (UA) Negativemg/dL (NEG) Urine Ketones (Stick) Negativemg/dL (NEG) Urine Blood Negative (NEG) Urine Nitrite Negative (NEG) Urine Bilirubin Negative (NEG) Urine Urobilinogen Dipstick 0.2mg/dL (0.2 mg/dL) Urine Leukocyte Esterase Negative (NEG) Urine RBC 0/HPF (0-2) Urine WBC 0/HPF (0-4) Urine Squamous Epithelial Cells Few/LPF Urine Bacteria 0/HPF (0-FEW) Urine Mucus Slight/LPF Laboratory Tests 06/21/16 12:05 Laboratory Tests 06/21/16 12:05 EKG EKG [] EKG shows sinus rhythm with a regular rate. Not consistent with ischemia. Radiology/Procedures Radiology/Procedures [] Course & Med Decision Making Course & Med Decision Making Pertinent Labs and Imaging studies reviewed. (See chart for details) [] 61-year-old female presenting to the emergency Department generalized weakness for the past 2 weeks. Vital signs afebrile with a normal heart rate. Pertinent physical exam findings showed a normal neurologic exam. EKG chest x- ray unremarkable. Blood work shows leukocytosis that is nonspecific. Patient does not have a fever. Urinalysis is unremarkable for infection. Abdomen is soft and nontender. No evidence of cellulitis of the skin. On reexamination the patient was feeling improved after IV fluid administration. She was subsequently discharged home to follow up with her primary care physician over the next 2-3 days. [id number] discharge instructions and return precautions were given. Patient is comfortable with plan. Dragon Disclaimer Dragon Disclaimer This electronic medical record was generated, in whole or in part, using a voice recognition dictation system. Departure Departure Impression: Primary Impression: Weakness Additional Impression: Leukocytosis Disposition: 01 HOME, SELF-CARE Condition: STABLE Referrals: ELLI STRANGE MD (PCP) Patient Instructions: Weakness, [id number] Additional Instructions: Thank you for allowing us to participate in your care today. Followup with your primary care physician in 3 days if your symptoms do not improve. If you do not have a primary care provider you can ask for a list of our primary care providers. Return to the emergency department you have any new or concerning findings. This should be evaluated by the primary care physician and any necessary consulting services for continued management within a few days after discharge. Return to emergency room if you have any new or concerning symptoms including but not limited to fever, chills, nausea, vomiting, intractable pain, any new rashes, chest pain, shortness of air, uncontrolled bleeding, difficulty breathing, and/or vision loss. You may have been prescribed medication that can change in your level of thinking and ability to operate machinery. These medications include hydrocodone and Ativan. Also, Benadryl has been known to do this as well. Be sure to check with your pharmacist and ask if the medications you've prescribed can affect your level of consciousness. I recommend not operating heavy machinery or driving while on medication such as these. Problem Qualifiers TYAO MCDANIELS MD Jun 21, 2016 13:39
[2016-06-21 14:32] VITALS: BP 120/72
[2016-06-21] MEDS ORDERED: ASPIRIN ENTERIC COATED 325 MG TABLET.DR. PO ONE (14:45)
== END 2016-06-21 14:43 | disposition home or self-care (01) ==
LOC: ER 10:21
DX: R53.1 Weakness (principal); D72.829 Elevated white blood cell count, unspecified; Z85.3 Personal history of malignant neoplasm of breast; Z79.899 Other long term (current) drug therapy; Z90.12 Acquired absence of left breast and nipple
CPT/HCPCS: 36415; 71010; 80048; 80076; 81001; 83605; 83690; 83880; 84484; 85007; 85027; 93005; 96360; 96361; 99285; J7040; 96365

== ENCOUNTER 2016-07-29 09:27 | Day surgery (SDC) | payer OTHER ==
[~2016-07-29] VITALS: Ht 149.9 cm; Wt 44.9 kg
[~2016-07-29 09:27] MED LIST changes: +HYDROmorphone 2 MG/ML VIAL IV PRN; +IV RINGERS,LACTATED 1000ML 1,000 ML IV SCH; +LIDOCAINE 1% 1 ML SYRINGE. ID PRN; +MORPHINE SULFATE 2 MG/ML DISP.SYRIN. IV PRN; -NYST1000 SWSW; +NYST100054 SWSW; +PROCHLORPERAZINE 10 MG/2 ML VIAL. IV PRN; +fentaNYL PF VIAL 100 MCG/2 ML VIAL IV PRN
[2016-07-29] MEDS ORDERED: TRAM50TA PO (09:31)
[2016-07-29] MEDS ORDERED: TIZA4TAB PO (09:31)
[2016-07-29] MEDS ORDERED: BUPIVAC MPF-EPI 0.5%-1:200000 30 ML VIAL. ONE (09:38)
[2016-07-29] MEDS ORDERED: PROPOFOL 20 ML IV ONE (10:09)
[2016-07-29] MEDS ORDERED: DEXAMETHASONE SOD PHOS 20 MG/5 ML VIAL. ONE (10:09)
[2016-07-29] MEDS ORDERED: ONDANSETRON PF 4 MG/2 ML VIAL. ONE (10:09)
[2016-07-29] MEDS ORDERED: LIDOCAINE 2% PF Vial for OR 5 ML VIAL. ONE (10:09)
[2016-07-29] MEDS ORDERED: fentaNYL PF VIAL 100 MCG/2 ML VIAL ONE (10:11)
[2016-07-29] MEDS ORDERED: PHENYLEPHRINE in 0.9% NACL PF 1 MG/10 ML DISP.SYRIN. IV ONE (11:18)
--- NOTE | 2016-07-29 11:42 | PDOC ---
BRIEF OPERATIVE NOTE Pre-Op Diagnosis breast cancer remove port k anthony elam ebl 5 ivf 300 esha well to rr stable. #[id number] REGGIE AGUAYO MD July 29, 2016 11:42
[2016-07-29] MEDS ORDERED: HYDR-971 PO (11:51)
[2016-07-29] MEDS ORDERED: HYDROcodone/APAP 5/325MG 1 TAB TABLET ONE (12:00)
[2016-07-29] MEDS ORDERED: HYDROcodone/APAP 5/325MG 1 TAB TABLET PO ONE (12:15)
[2016-07-29 12:25] VITALS: BP 138/78
--- NOTE | 2016-07-29 14:38 | OP ---
DATE OF SURGERY: 07/29/2016 PREOPERATIVE DIAGNOSIS: Breast cancer. POSTOPERATIVE DIAGNOSIS: Breast cancer. PROCEDURE: Removal of Port-A-Cath. SURGEON: Reggie Aguayo M.D. ANESTHESIA: General. ESTIMATED BLOOD LOSS: 5 mL. IV FLUIDS: 300 mL. INDICATIONS: The patient is a 61-year-old female who has a history of breast cancer. She has completed her chemotherapy in May, and she is here for removal of her Port-A-Cath. PROCEDURE IN DETAIL: After informed consent was obtained, the patient was taken to the Operating Room and placed in supine position. After adequate induction of general anesthesia, she was prepped and draped in the usual sterile fashion. The skin was injected with local anesthetic, and then a skin incision was made. Cautery was used to dissect down to the Port-A-Cath. The capsule surrounding the port was opened with cautery. The port had two sutures securing it to the chest wall. These were cut and removed. The port was then free, and it was able to be removed along with the catheter in one piece. The tip of the catheter was inspected and was intact. After I removed the entire Port-A-Cath, the tunnel in the subcutaneous space was oversewn with a 3-0 Vicryl suture. The wound was hemostatic. It was closed in layers. A 3-0 Vicryl was used to close the dermal subdermal layers. Skin was closed with 4-0 Monocryl in subcuticular fashion. Sterile dressings were placed which consisted of the equivalent of Dermabond followed by Steri-Strips. She tolerated the procedure well. There were no apparent complications. She was then transferred in stable condition to the Recovery Room. REGGIE AGUAYO MD DR: BECCA/sanya JOB#: [id number] / [id number] ELLI Macias MD, VINAY MD
--- NOTE | 2016-07-30 15:55 | PATHOLOGY ---
PATHOLOGY REPORT * * * * * * * * FINAL DIAGNOSIS: Port-A-Cath (Gross only). REPORT ELECTRONICALLY SIGNED BY: Fito Hartman M.D. DATE/TIME: 07/30/2016 15:55 * * * * * * * * GROSS PATHOLOGY: The specimen is received fresh, labeled "Esteban Gipson Port-A-Cath". Received is a triangular metallic reservoir measuring 2.6 x 2.5 x 1.5 cm with attached white tubing measuring 22.9 cm in length by 0.3 cm in diameter. The back of the reservoir is inscribed with "BARD", "CT", and "[id number]". A gross photograph is taken. Sections are not submitted. (CAA; 07/30/2016) INITIAL CPT CODE(S): A; 22853 Professional services performed by [facility] [place] [address] Technical services performed by [facility] at [address] [place] [address], [facility] [address] [address]. SPECIMEN(S) RECEIVED: A.Port a cath CLINICAL HISTORY: Post chemo access port, invasive ductal carcinoma of left breast PATIENT: ESTEBAN GIPSON /AGE: 12 1955 (Age: 61) PATIENT #: [id number] ALT CASE #: SPECIMEN COLLECTION DATE: 07/29/2016 SPECIMEN RECEIVED DATE: 07/29/2016 [facility] - [address] [place] [address] - PHONE: [phone] * * * END OF REPORT * * *
== END 2016-07-29 12:35 | disposition home or self-care (01) ==
LOC: SURG 09:27
PROVIDERS: ATTEND Surgery
DX: C50.919 Malignant neoplasm of unspecified site of unspecified female breast (principal); Z45.2 Encounter for adjustment and management of vascular access device; F41.9 Anxiety disorder, unspecified; F32.9 Major depressive disorder, single episode, unspecified; Z87.39 Personal history of other diseases of the musculoskeletal system and connective tissue
CPT/HCPCS: 36590; J0690; J1100; J2370; J2405; J2704; J3010; J3490; 88300

== ENCOUNTER → 2016-12-25 | Outpatient (CLI) | payer OTHER ==
[~2016-12-25] MED LIST changes: -ESCI5TAB24 PO; +ESCITALOPRAM OXA5 MG PO; +HYDR-971 PO; -HYDROmorphone 2 MG/ML VIAL IV PRN; -IV RINGERS,LACTATED 1000ML 1,000 ML IV SCH; -LIDOCAINE 1% 1 ML SYRINGE. ID PRN; -MORPHINE SULFATE 2 MG/ML DISP.SYRIN. IV PRN; -PROCHLORPERAZINE 10 MG/2 ML VIAL. IV PRN; +TIZA4TAB PO; +TRAM50TA PO; -fentaNYL PF VIAL 100 MCG/2 ML VIAL IV PRN
--- NOTE | 2016-12-25 09:08 | KCIC ---
Right breast diagnostic digital mammograms: Reason for examination: Routine screening. History of left breast cancer with mastectomy. Comparison is made to previous studies dated 11/20/2015 and 05/13/2009. Interpretation was made with the benefit of CAD. The skin and nipple show no abnormalities. No abnormal axillary lymph nodes are seen. The breast parenchyma shows scattered fibroglandular density. (Breast density: Category B.) There are no dominant masses, suspicious calcifications or architectural distortions. Scattered benign calcifications are present. Impression: No evidence of malignancy. Recommend routine screening. BI-RADS category 2: Benign "Our facility is accredited by the [employer] Mammography Program." This patient's information has been entered into a reminder system for the patient to be notified with the results of her examination and a target date for the next mammogram. Electronically signed by: Shyanne Macdonald MD (12/25/2016 9:06 AM) [id number]
== END | disposition home or self-care (01) ==
LOC: KCIC MAMMO 08:19
PROVIDERS: ATTEND Nurse Practitioner
DX: R92.8 Other abnormal and inconclusive findings on diagnostic imaging of breast (principal); Z85.3 Personal history of malignant neoplasm of breast
CPT/HCPCS: G0206; 77065

== ENCOUNTER → 2017-12-10 | Outpatient (CLI) | payer OTHER ==
--- NOTE | 2017-12-10 08:31 | KCIC ---
EXAM: Right breast diagnostic mammogram. HISTORY: 62-year-old female with a history of left breast cancer, status post left mastectomy, presents for annual mammography of the right breast. TECHNIQUE: Full-field digital craniocaudal and mediolateral oblique views of the right breast are obtained for evaluation. Computer aided detection with [employer] software version 9.3 was applied. COMPARISON: 12/25/2016 and 11/20/2015 BREAST PARENCHYMAL DENSITY: Level B - Scattered fibroglandular densities. FINDINGS: There is no new suspicious mass, microcalcification or region of architectural distortion. IMPRESSION: BI-RADS Category 2: Benign finding(s). RECOMMENDATION: Annual mammography is recommended. If your mammogram demonstrates that you have dense breast tissue, which could hide abnormalities, and if you have other risk factors for breast cancer that have been identified, you might benefit from supplemental screening tests that may be suggested by your ordering physician. Dense breast tissue, in and of itself, is a relatively common condition. This information is not provided to cause undue concern, but rather to raise your awareness and to promote discussion with your physician regarding the presence of other risk factors, in addition to dense breast tissue. A report of your mammography results will be sent to you and your physician. You should contact your physician if you have any questions or concerns regarding this report. Mammography is a sensitive method for finding small breast cancers, but it does not detect them all and is not a substitute for careful clinical examination. A negative mammogram does not negate a clinically suspicious finding and should not result in delay in biopsying a clinically suspicious abnormality. PQRS compliance statement - Patient information was entered into a reminder system with a target due date for the next mammogram. "Our facility is accredited by the [employer] Mammography Program." Electronically signed by: Yohana Rowley MD (12/10/2017 8:28 AM) [id number]
== END | disposition home or self-care (01) ==
LOC: KCIC MAMMO 07:43
PROVIDERS: ATTEND Internal Medicine Hematology & Oncology
DX: Z08 Encounter for follow-up examination after completed treatment for malignant neoplasm (principal); F17.210 Nicotine dependence, cigarettes, uncomplicated; Z85.3 Personal history of malignant neoplasm of breast; Z90.12 Acquired absence of left breast and nipple
CPT/HCPCS: 77065

== ENCOUNTER → 2018-12-09 | Outpatient (CLI) | payer OTHER ==
[~2018-12-09] MED LIST changes: +HYDR-3164 PO; -HYDR-971 PO; -SENN1TAB21 PO; +SENN1TAB62 PO; -TIZA4TAB PO; +TIZA4TAB2 PO
--- NOTE | 2018-12-09 08:39 | KCIC ---
Right breast diagnostic digital mammograms: Reason for examination: Routine screening. History of left breast cancer with mastectomy and chemotherapy in 2016. Comparison is made to previous studies dated 12/10/2017 and 12/25/2016. Interpretation was made with the benefit of CAD. The skin and nipple show no abnormalities. No abnormal axillary lymph nodes are seen. The breast parenchyma shows scattered fibroglandular density. (Breast density: Category B.) There are no dominant masses, suspicious calcifications or architectural distortions. Some benign calcifications are present. Impression: No evidence of malignancy. Recommend routine screening. BI-RADS category 2: Benign "Our facility is accredited by the [employer] Mammography [employer]." This patient's information has been entered into a reminder system for the patient to be notified with the results of her examination and a target date for the next mammogram. Electronically signed by: Shyanne Macdonald MD (12/09/2018 8:36 AM) [id number]
== END | disposition home or self-care (01) ==
LOC: KCIC MAMMO 07:44
PROVIDERS: ATTEND Internal Medicine Hematology & Oncology
DX: C50.312 Malignant neoplasm of lower-inner quadrant of left female breast (principal); Z85.3 Personal history of malignant neoplasm of breast; Z17.1 Estrogen receptor negative status [ER-]
CPT/HCPCS: 77065

== ENCOUNTER → 2020-03-18 | Outpatient (CLI) | payer MEDICARE, OTHER ==
--- NOTE | 2020-03-18 14:26 | RAD ---
EXAM: Right breast diagnostic mammogram. HISTORY: 65-year-old female with a history of left breast cancer, status post left mastectomy, presen ts for mammography. TECHNIQUE: Full-field digital craniocaudal, true lateral and mediolateral oblique views of right jab[address] are obtained for evaluation. Computer aided detection was applied. COMPARISON: 12/09/2018 and 12/10/2017 BREAST PARENCHYMAL DENSITY: Level B - Scattered fibroglandular densities. FINDINGS: There is no new suspicious mass, microcalcification or region of architectural distortion. There are benign calcifications within the right breast. IMPRESSION: BI-RADS Category 2: Benign finding(s). RECOMMENDATION: Annual mammography is recommended. If your mammogram demonstrates that you have dense breast tissue, which could hide abnormalities, and if you have other risk factors for breast cancer that have been identified, you might benefit from s upplemental screening tests that may be suggested by your ordering physician. Dense breast tissue, i n and of itself, is a relatively common condition. This information is not provided to cause undue c oncern, but rather to raise your awareness and to promote discussion with your physician regarding th e presence of other risk factors, in addition to dense breast tissue. A report of your mammography re sults will be sent to you and your physician. You should contact your physician if you have any ques tions or concerns regarding this report. Mammography is a sensitive method for finding small breast cancers, but it does not detect them all a nd is not a substitute for careful clinical examination. A negative mammogram does not negate a clin ically suspicious finding and should not result in delay in biopsying a clinically suspicious abnorma lity. PQRS compliance statement - Patient information was entered into a reminder system with a target due date for the next mammogram. "Our facility is accredited by the [employer] Mammography Program." Electronically signed by: Yohana Rowley MD (03/18/2020 2:23 PM) [id number]
== END ==
LOC: MAMMO 13:39
PROVIDERS: ATTEND Internal Medicine Hematology & Oncology
DX: R92.8 Other abnormal and inconclusive findings on diagnostic imaging of breast (principal); Z90.12 Acquired absence of left breast and nipple
CPT/HCPCS: 77065

== ENCOUNTER → 2021-05-23 | Outpatient (CLI) | payer MEDICARE, OTHER ==
[~2021-05-23] MED LIST changes: +TIZA-75 PO; -TIZA4TAB2 PO
--- NOTE | 2021-05-23 13:26 | KCIC ---
Right breast digital screening mammograms: Reason for examination: Routine screening. History of left breast cancer with mastectomy. Comparison is made to previous studies dated back to 12/25/2016. Interpretation was made with the benefit of CAD. The skin and nipple show no abnormalities. No abnormal axillary lymph nodes are seen. The breast pare nchyma shows scattered fibroglandular density. (Breast density: Category B.) There are no dominant ma sses, suspicious calcifications or architectural distortions. Some benign calcifications are present. Impression: No evidence of malignancy. Recommend routine screening. BI-RADS category 2: Benign "Our facility is accredited by the [employer] Mammography [employer]." This patient's information has been entered into a reminder system for the patient to be notified wit h the results of her examination and a target date for the next mammogram. Electronically signed by: Shyanne Macdonald MD (05/23/2021 1:24 PM) [email or web address]
== END ==
LOC: KCIC MAMMO 12:28
PROVIDERS: ATTEND Internal Medicine
DX: Z12.31 Encounter for screening mammogram for malignant neoplasm of breast (principal)
CPT/HCPCS: 77067